=== PATIENT | female | born 1945 | race Caucasian/White ===

== ENCOUNTER 2020-07-23 13:28 | Emergency (ER) | payer MEDICARE, BC ==
[2020-07-23] MEDS: Sodium Chloride 0.9% 10 ML Syringe FLUSH PRN ×2 (13:43→16:14)
[2020-07-23] MEDS ORDERED: Morphine 2 MG/ML SYRINGE IVPUSH ONE (14:13)
--- NOTE | 2020-07-23 14:28 | EDM.PDOC ---
ED HPI GENERAL MEDICAL PROBLEM - General Chief Complaint: Lower Extremity Injury/Pain Stated Complaint: R HIP PAIN Time Seen by Provider: 07/23/20 13:45 Source of Information: Reports: Patient History Limitations: Reports: No Limitations - History of Present Illness INITIAL COMMENTS - FREE TEXT/NARRATIVE: Patient ia a 74 YO WF who presented to the ED because of Right hip pain. She missed a step then fell on the ice. She was not able to get up and c/o Right hip pain which is worse with movements. She is otherwise healthy and is not taking any medications except for a daily MVI. R hip Pain Score (Numeric/FACES): 10 - Related Data Allergies Allergy/AdvReac Type Severity Reaction Status Date / Time No Known Allergies Allergy Verified 07/23/20 13:46 Home Meds: Home Meds Multivitamin with Minerals [Multiple Vitamin] 1 tab PO DAILY 04/10/18 [History] Past Medical History - Past Health History Medical/Surgical History: Denies Medical/Surgical History HEENT History: Reports: Cataract Cardiovascular History: Reports: None Respiratory History: Reports: None Gastrointestinal History: Reports: PUD Other Gastrointestinal History: constipation Genitourinary History: Reports: None 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 History: Musculoskeletal History: Reports: Arthritis Neurological History: Reports: None Psychiatric History: Reports: Anxiety Endocrine/Metabolic History: Reports: None Hematologic History: Reports: None Immunologic History: Reports: None Oncologic (Cancer) History: Reports: None Dermatologic History: Reports: None - Infectious Disease History Infectious Disease History: Reports: Chicken Pox, Measles - Past Surgical History Head Surgeries/Procedures: Reports: None HEENT Surgical History: Reports: Cataract Surgery Other HEENT Surgeries/Procedures: right eye GI Surgical History: Reports: Colonoscopy Female Surgical History: Reports: None Neurological Surgical History: Reports: None Musculoskeletal Surgical History: Reports: Carpal Tunnel Other Musculoskeletal Surgeries/Procedures:: BILATERAL CARPAL TUNNEL RELEASE Social & Family History - Family History Family Medical History: No Pertinent Family History GI: Reports: None - Tobacco Use Tobacco Use Status *Q: Never Tobacco User - Caffeine Use Caffeine Use: Reports: Coffee Other Caffeine Use: 2 cups a day Caffeine Use Comment: 2-3 cup a day - Recreational Drug Use Recreational Drug Use: No Review of Systems - Review of Systems Review Of Systems: See Below Constitutional: Reports: No Symptoms Eyes: Reports: No Symptoms Ears: Reports: No Symptoms Nose: Reports: No Symptoms Mouth/Throat: Reports: No Symptoms Respiratory: Reports: No Symptoms Cardiovascular: Reports: No Symptoms GI/Abdominal: Reports: No Symptoms Genitourinary: Reports: No Symptoms Musculoskeletal: Reports: Other (rt hip pain) Neurological: Reports: No Symptoms Psychiatric: Reports: No Symptoms ED EXAM, GENERAL - Physical Exam Exam: See Below Exam Limited By: No Limitations General Appearance: Alert, No Apparent Distress Eye Exam: Bilateral Eye: PERRL Ears: Normal External Exam, Normal Canal Nose: Normal Inspection, Normal Mucosa, No Blood Throat/Mouth: Normal Inspection, Normal Lips Head: Atraumatic, Normocephalic Neck: Normal Inspection, Supple, Non-Tender, Full Range of Motion Respiratory/Chest: No Respiratory Distress, Lungs Clear, Normal Breath Sounds Cardiovascular: Normal Peripheral Pulses, Regular Rate, Rhythm, No Edema, No Gallop GI/Abdominal: Normal Bowel Sounds, Soft, Non-Tender, No Organomegaly Back Exam: Normal Inspection, Full Range of Motion Extremities: Other (tenderness rt hip) Course - Vital Signs Text/Narrative:: Labs/Xray hip-pelvis was discussed with patient Morphine 2 mg IV x1 Last Recorded V/S: Last Vital Signs Temp 36.2 C 07/23/20 13:28 Pulse 90 07/23/20 13:28 Resp 20 07/23/20 13:28 BP 132/89 07/23/20 13:28 Pulse Ox 100 07/23/20 13:28 - Orders/Labs/Meds Orders: Active Orders 24 hr Category Date Time Status Hip Min 2V or 3V w Pelvis Rt [CR] Stat Exams 07/23/20 14:17 Taken INR,PT,PROTHROMBIN TIME [COAG] Stat Lab 07/23/20 13:45 Received PTT,PARTIAL THROMBOPLSTIN TIME [COAG] Stat Lab 07/23/20 13:45 Received Sodium Chloride 0.9% [Saline Flush] Med 07/23/20 13:54 Active 10 ml FLUSH ASDIRECTED PRN Saline Lock Insert [OM.PC] Routine Oth 07/23/20 13:54 Ordered Medication Orders Sodium Chloride (Saline Flush) 10 ml FLUSH ASDIRECTED PRN PRN Reason: Keep Vein Open Last Admin: 07/23/20 13:43 Dose: 10 ml Documented by: MAURICE Labs: Laboratory Tests 07/23/20 07/23/20 Range/Units 13:45 13:45 WBC 10.1 (3.0-10.3) x10-3/uL RBC 4.19 (3.60-5.20) x10(6)uL Hgb 13.5 (11.4-15.5) g/dL Hct 40.0 (34.2-48.2) % MCV 95.5 (76.7-100.5) fL MCH 32.3 (23.9-33.9) pg MCHC 33.8 (31.9-34.8) g/dL RDW 14.4 (12.3-16.5) % Plt Count 301 (151-488) x10(3)uL MPV 8.4 (7.1-12.4) fL Neut % (Auto) 83.4 H (30.8-76.2) % Lymph % (Auto) 9.5 L (18.4-52.1) % [place] % (Auto) 4.5 (4.4-15.7) % Eos % (Auto) 1.8 (0.6-8.1) % Baso % (Auto) 0.8 (0.2-1.5) % Neut # (Auto) 8.4 H (1.5-6.3) x10-3/uL Lymph # (Auto) 1.0 (1.0-4.4) x10-3/uL [place] # (Auto) 0.4 (0.3-1.0) x10-3/uL Eos # (Auto) 0.2 (0.0-0.8) x10-3/uL Baso # (Auto) 0.1 (0.0-0.1) x10-3/uL Sodium 136 (135-145) mmol/L Potassium 3.9 (3.5-5.3) mmol/L Chloride 102 (100-110) mmol/L Carbon Dioxide 24 (21-32) mmol/L BUN 15 (7-18) mg/dL Creatinine 0.9 (0.55-1.02) mg/dL Est Cr Clr Drug Dosing 56.16 mL/min Estimated GFR (MDRD) > 60 (>60) BUN/Creatinine Ratio 16.7 (9-20) Glucose 158 H (80-116) mg/dL Calcium 9.4 (8.6-10.2) mg/dL Total Bilirubin 0.4 (0.1-1.3) mg/dL AST 36 H (5-25) IU/L ALT 40 H (12-36) U/L Alkaline Phosphatase 85 (56-112) IU/L Total Protein 7.7 (6.0-8.0) g/dL Albumin 4.0 (3.2-4.6) g/dL Globulin 3.7 g/dL Albumin/Globulin Ratio 1.1 Meds: Medications Generic Name Dose Route Start Last Admin Trade Name Freq PRN Reason Stop Dose Admin Sodium Chloride 10 ml 07/23/20 13:54 07/23/20 13:43 Saline Flush FLUSH 10 ml ASDIRECTED PRN Administration Keep Vein Open Discontinued Medications Generic Name Dose Route Start Last Admin Trade Name Freq PRN Reason Stop Dose Admin Morphine Sulfate 2 mg 07/23/20 14:13 07/23/20 14:23 Morphine IVPUSH 07/23/20 14:14 2 mg ONETIME ONE Administration Departure - Departure Time of Disposition: 15:55 Disposition: DC/Tfer to Acute Hospital 02 Condition: Good Clinical Impression: Femoral neck fracture, Fall - Discharge Information Referrals: Norma Padilla PA-C [Primary Care Provider] - Forms: ED Department Discharge Sepsis Event Note (ED) - Evaluation Sepsis Screening Result: No Definite Risk - Focused Exam Vital Signs: Vital Signs Temp Pulse Resp BP Pulse Ox 07/23/20 13:28 36.2 C 90 20 132/89 100 - My Orders Last 24 Hours: My Active Orders 07/23/20 13:45 INR,PT,PROTHROMBIN TIME [COAG] Stat PTT,PARTIAL THROMBOPLSTIN TIME [COAG] Stat 07/23/20 13:54 Sodium Chloride 0.9% [Saline Flush] 10 ml FLUSH ASDIRECTED PRN Saline Lock Insert [OM.PC] Routine 07/23/20 14:17 Hip Min 2V or 3V w Pelvis Rt [CR] Stat - Assessment/Plan Last 24 Hours: My Active Orders 07/23/20 13:45 INR,PT,PROTHROMBIN TIME [COAG] Stat PTT,PARTIAL THROMBOPLSTIN TIME [COAG] Stat 07/23/20 13:54 Sodium Chloride 0.9% [Saline Flush] 10 ml FLUSH ASDIRECTED PRN Saline Lock Insert [OM.PC] Routine 07/23/20 14:17 Hip Min 2V or 3V w Pelvis Rt [CR] Stat
[2020-07-23] MEDS ORDERED: Morphine 2 MG/ML SYRINGE IVPUSH STA (15:52)
--- NOTE | 2020-07-23 17:41 | CR ---
INDICATION: Right hip pain after a fall. RIGHT HIP WITH PELVIS: Frontal view of the pelvis with frontal view of the right hip and a lateral view of the right hip were obtained 07/23/20 - no comparisons. A partially subcapital oblique fracture through the femoral neck is noted with a portion of the femoral neck still attached to the femoral head. Cranial offset of the distal fracture fragment is noted of approximately 2 cm with overriding of approximately 18 mm. No other acute bone or joint abnormality was identified. Minimal degenerative changes are noted at the hip joints and very minimally at the sacroiliac joints with the joint spaces appearing to be fairly well maintained on this supine examination. IMPRESSION: Femoral neck fracture with deformity on the right. MTDD
== END 2020-07-23 16:25 ==
LOC: FB.ED 13:28
DX: S72.011A Unspecified intracapsular fracture of right femur, initial encounter for closed fracture (principal); W00.0XXA Fall on same level due to ice and snow, initial encounter
CPT/HCPCS: 36415; 51702; 73502-RT; 80053; 81001; 85025; 85610; 85730; 96374; 96376; 99285; 99285-25; J2270

== ENCOUNTER 2020-07-28 11:28 | Inpatient (IN) | payer MEDICARE, BC ==
--- NOTE | 2020-07-28 16:03 | PCM.HP.2 ---
H&P History of Present Illness - General Date of Service: 07/28/20 Admit Problem/Dx: Admission Diagnosis/Problem Admission Diagnosis/Problem Rehabilitation therapy Source of Information: Patient, Old Records, Provider - History of Present Illness Initial Comments - Free Text/Narative: Norma presents for admission to swing bed after right total hip arthroplasty on 07/24 after sustaining right femoral neck fracture on 07/23 from fall on ice at home. She was coming down the steps and stepped on some ice/snow went down and could not get up. She has had stable Hgb in [place] at 8.5 for past few days. Amairani tushar unremarkable. She is to have Lovenox for 28 days for DVT prophylaxis, last dose on 08/21. She has appt with [facility] on 08/13 at 1030am, [facility] on 09/08 at 10 am with midlevel provider & [address] Villarreal. Total hip precautions, no bending >90 degrees, do not cross her legs. Covid negative today. Had bowel movement today, large one per patient. - Related Data Allergies/Adverse Reactions: Allergies Allergy/AdvReac Type Severity Reaction Status Date / Time No Known Allergies Allergy Verified 07/23/20 13:46 Home Medications: Home Meds Acetaminophen [Tylenol] 650 mg PO Q4H PRN 07/28/20 [History] Calcium Carb, Citrate/Vit D3 [Citracal + D ER] 1 tab PO BIDMEALS 07/28/20 [History] Cholecalciferol (Vitamin D3) [Vitamin D3] 25 mcg PO DAILY 07/28/20 [History] Docusate Sodium [Docusol] 1 enema RECTAL DAILY PRN 07/28/20 [History] Docusate Sodium/Sennosides [Senna Plus] 2 tab PO BID 07/28/20 [History] Docusate Sodium/Sennosides [Senna Plus] 2 tab PO BID PRN 07/28/20 [History] Enoxaparin [Lovenox] 40 mg SUBCUT DAILY@1200 07/28/20 [History] Magnesium Hydroxide [Milk of Magnesia] 30 ml PO BID PRN 07/28/20 [History] Multivitamin 1 tab PO DAILY 07/28/20 [History] Ondansetron [Zofran ODT] 4 mg PO QID PRN 07/28/20 [History] bisacodyL [Bisacodyl] 5 mg PO BID PRN 07/28/20 [History] bisacodyL [Bisacodyl] 10 mg RECTAL DAILY PRN 07/28/20 [History] polyethylene glycoL 3350 [MiraLAX] 17 gm PO BID 07/28/20 [History] Past Medical History - Past Health History Medical/Surgical History: Denies Medical/Surgical History HEENT History: Reports: Cataract Cardiovascular History: Reports: None Respiratory History: Reports: None Gastrointestinal History: Reports: PUD Other Gastrointestinal History: constipation Genitourinary History: Reports: None 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: Musculoskeletal History: Reports: Arthritis Neurological History: Reports: None Psychiatric History: Reports: Anxiety Endocrine/Metabolic History: Reports: None Hematologic History: Reports: None Immunologic History: Reports: None Oncologic (Cancer) History: Reports: None Dermatologic History: Reports: None - Infectious Disease History Infectious Disease History: Reports: Chicken Pox, Measles - Past Surgical History Head Surgeries/Procedures: Reports: None HEENT Surgical History: Reports: Cataract Surgery Other HEENT Surgeries/Procedures: right eye GI Surgical History: Reports: Colonoscopy Female Surgical History: Reports: None Neurological Surgical History: Reports: None Musculoskeletal Surgical History: Reports: Carpal Tunnel Other Musculoskeletal Surgeries/Procedures:: BILATERAL CARPAL TUNNEL RELEASE Social & Family History - Family History Family Medical History: No Pertinent Family History GI: Reports: None - Caffeine Use Caffeine Use: Reports: Coffee Other Caffeine Use: 2 cups a day Caffeine Use Comment: 2-3 cup a day H&P Review of Systems - Review of Systems: Review Of Systems: See Below General: Reports: No Symptoms HEENT: Reports: No Symptoms Pulmonary: Reports: No Symptoms Cardiovascular: Reports: Edema. Denies: Chest Pain, Dyspnea on Exertion Gastrointestinal: Reports: No Symptoms Genitourinary: Reports: No Symptoms Musculoskeletal: Reports: Leg Pain, Joint Pain Skin: Reports: Wound Psychiatric: Reports: No Symptoms Neurological: Reports: No Symptoms Hematologic/Lymphatic: Reports: No Symptoms Immunologic: Reports: No Symptoms Exam - Exam Exam: See Below - Exam General: Alert, Oriented, Cooperative HEENT: PERRLA, Conjunctiva Clear, EACs Clear, EOMI, Hearing Intact, Mucosa Moist & [place] Neck: Supple, Trachea Midline. No: Lymphadenopathy Lungs: Clear to Auscultation, Normal Respiratory Effort Cardiovascular: Regular Rate, Regular Rhythm GI/Abdominal Exam: Normal Bowel Sounds, Soft, Non-Tender, No Distention (Female) Exam: Deferred Rectal (Female) Exam: Deferred Extremities: Pedal Edema (RLE 1+, LLE trace), Limited Range of Motion Peripheral Pulses: 2+: Radial (L), Radial (R) Skin: Incision (occlusive dressing in place), Other (betadine present on right foot) Neurological: Cranial Nerves Intact, Normal Speech, Normal Tone Psychiatric: Normal Affect, Normal Mood - Patient Data Lab Results Last 24 hrs: Hgb 8.5, Platelets 269 *Q Meaningful Use (ADM) - VTE Risk Assess *Q Each Risk Factor Represents 1 Point: None Total Score 1 Point Risk Factors: 0 Each Risk Factor Represents 2 Points: Age 60 - 74 Years Total Score 2 Point Risk Factors: 2 Each Risk Factor Represents 3 Points: None Total Score 3 Point Risk Factors: 0 Each Risk Factor Represents 5 Points: Hip, Pelvis or Leg Fracture, Less than 1 month Total Score 5 Point Risk Factors: 5 Venous Thromboembolism Risk Factor Score *Q: 7 - Problem List (1) Status post total hip replacement, right SNOMED Code(s): 145498650880, 246035260124 ICD Code: Z96.641 - PRESENCE OF RIGHT ARTIFICIAL HIP JOINT Status: Acute Current Visit: Yes (2) Femoral neck fracture SNOMED Code(s): 4175509 ICD Code: S72.009A - FRACTURE OF UNSP PART OF NECK OF UNSP FEMUR, INIT Status: Acute Current Visit: No Problem List Initiated/Reviewed/Updated: Yes Orders Last 24hrs: Active Orders 24 hr Category Date Time Status Patient Status [ADT] Routine ADT 07/28/20 15:47 Ordered Elevate Extremity [RC] PRN Care 07/28/20 15:47 Ordered Height and Weight [RC] WEEKLY Care 07/28/20 15:47 Ordered Oxygen Therapy [RC] PRN Care 07/28/20 15:47 Ordered Up With Assistance [RC] ASDIRECTED Care 07/28/20 15:47 Ordered Up to Chair [RC] ASDIRECTED Care 07/28/20 15:47 Ordered VTE/DVT Education [RC] Per Unit Routine Care 07/28/20 15:47 Ordered Vital Signs [RC] PER UNIT ROUTINE Care 07/28/20 15:47 Ordered Wound Care [RC] PRN Care 07/28/20 15:47 Ordered OT Evaluation and Treatment [CONS] Routine Cons 07/28/20 15:47 Ordered PT Evaluation and Treatment [CONS] Routine Cons 07/28/20 15:47 Ordered Regular Diet [DIET] Diet 07/28/20 Dinner Ordered Antiembolic Hose [OM.PC] Per Unit Routine Oth 07/28/20 15:49 Ordered Ice Therapy [OM.PC] Routine Oth 07/28/20 15:47 Ordered Resuscitation Status Routine Resus Stat 07/28/20 15:47 Ordered Assessment/Plan Comment:: 1. Admit for swing bed services: PT/OT s/p right total hip replacement after right femoral neck fracture on 07/23. 2. Right total hip replacement, POD#4: PT/OT evaluate & treat, Tylenol as needed for pain. MiraLax Daily and Senna bid as needed. Weight bearing as tolerated. Hip precautions. Occlusive dressing was changed 07/27 then every 7 days and as needed. Follow up appointments 08/13 & 09/08 in [place]. Elevate extremity bid & as needed. Ice as needed swelling. Cover dressing for showers. 3. Regular diet. 4. Activity: up with assistance & chair. advance per PT. 5. DVT prophylaxis: Lovenox 40 mg sq daily x 28 days, last day 08/21. 6. CODE STATUS: FULL. - Mortality Measure Prognosis:: Good
[2020-07-28] MEDS ORDERED: Acetaminophen 325 MG Tab PO PRN (16:04)
[2020-07-28] MEDS ORDERED: Ondansetron 4 MG Tab.DIS PO PRN (16:07)
[2020-07-28] MEDS: Calcium Carbonate 500 MG Tablet PO SCH (18:09)
[2020-07-29] MEDS: Multivitamin Tab PO SCH (08:18)
[2020-07-29] MEDS: Cholecalciferol (Vitamin D3) 25 MCG Tab PO SCH (08:18)
[2020-07-29] MEDS: Polyethylene Glycol 3350 Powder 17 GM Packet PO SCH (08:18)
[2020-07-29] MEDS: Calcium Carbonate 500 MG Tablet PO SCH ×2 (08:18→17:01)
--- OUTSIDE RECORDS SUMMARY | 2020-07-29 08:32 | XMSREPORT ---
:1945 Author Organization [facility] s Address [address] [place] [address] [address] [place] [address] Care Team Providers Name Role Phone Nanette Velasquez MD Primary Care Provider Delia Padilla Attributed Provider Reason for Visit Reason Comments Auth/Cert Status Reason Specialty Diagnoses / Procedures Referred By C hernanact Referred To Contact Encounter Details Date Type Department Care Team Description [facility] Pr ocedure Closed displaced 07/28/2020 Encounter [facility] Dianna Clay MD [address] [place] [address] [phone] fracture of right SURG [facility] Debbie Bar, [address] [place] [address] [phone] femoral neck (HCC) [address] [facility] Jorge Alberto Torres MD [address] [place] [address] [phone] [place] [address] Ricardo Light DO [facility] [place] [address] [phone] Allergies No Known Allergiesdocumented as of this encounter (statuses as of 07/28/2020) Medications Medication Sig Dispensed Refills Start End Status Date Date Multiple Vitamin Take 1 tablet by 0 Active (MULTIVITAMIN) mouth 1 time per TABS day. vitamin D3, Take 1 tablet 30 tablet 0 07/24/19 Acti ve cholecalciferol, (1,000 Units) by 21 25 mcg (1000 mouth 1 time per unit) day tabletIndications : Closed displaced fracture of right femoral neck (HCC), Status post total replacement of right hip, Pathological fracture of other site due to osteoporosis, unspecified osteoporosis type, initial encounter calcium Take 1 tablet by 0 07/24/19 Act khadijah citrate-vitamin D mouth 2 times a 21 (CITRACAL + VIT day with meals D) 315 mg-250 unit tabletIndications : Closed displaced fracture of right femoral neck (HCC), Status post total replacement of right hip, Pathological fracture of other site due to osteoporosis, unspecified osteoporosis type, initial encounter enoxaparin Inject 40 mg 0 07/28/19 Active (LOVENOX) 40 mg subcutaneously 1 21 syringe (100 time per day mg/mL) subcutaneous injection solutionIndicatio ns: Closed displaced fracture of right femoral neck (HCC) ondansetron Take 1 tablet (4 0 07/28/19 A ctive (ZOFRAN ODT) 4 mg mg) by mouth 4 21 dispersible times a day as tabletIndications needed for nausea : Nausea or vomiting bisacodyl Take 1 tablet (5 30 tablet 0 07/28/19 Act khadijah (DULCOLAX) 5 mg mg) by mouth 2 21 tabletIndications times a day as : Constipation, needed for unspecified constipation constipation type magnesium Take 30 mL by 0 07/28/19 Active hydroxide (MILK mouth 2 times a 21 OF MAGNESIA) 400 day as needed for mg/5 mL oral constipation suspensionIndicat ions: Constipation, unspecified constipation type polyethylene Take 1 packet by 0 07/28/19 Active glycol (MIRALAX) mouth 2 times a 21 17 g day Dissolve in 4 packetIndications to 8 ounces of : Constipation, water, juice, unspecified soda, coffee, constipation type tea. senna-docusate Take 2 tablets by 0 07/28/19 Active sodium mouth 2 times a 21 (SENOKOT-S;CAMDEN day as needed for LACE) 8.6-50 MG constipation tabletIndications : Constipation, unspecified constipation type bisacodyl Insert 1 30 suppository 0 07/28/19 Activ e (DULCOLAX) 10 mg suppository (10 suppositoryIndica mg) rectally 1 tions: time a day as Constipation, needed for unspecified constipation constipation type Unwrap before inserting. Do not swallow. docusate sodium Insert 1 enema 0 07/28/19 Active (THEREVAC-SB rectally 1 time a 21 MINI;ENEMEEZ day as needed for MINI) 283 MG constipation ENEMIndications: Constipation, unspecified constipation type senna-docusate Take 2 tablets by 0 07/28/19 Active sodium mouth 2 times a 21 (SENOKOT-S;CAMDEN day LACE) 8.6-50 MG tabletIndications : Constipation, unspecified constipation type acetaminophen Take 2 tablets 0 07/28/19 A ctive (TYLENOL) 325 mg (650 mg) by mouth 21 tabletIndications Every 4 hours as : Closed needed for displaced moderate pain or fracture of right fever > (indicate femoral neck temp) (temp > (HCC) 100.4) glucosamine Take 1 tablet by 0 D iscontinued sulfate 1000 MG mouth 2 times a (Stop Taking TABS day. at Dischar ) acetaminophen Take 2 tablets 0 07/28/19 D iscontinued (TYLENOL) 325 mg (650 mg) by mouth 021 tabletIndications every 4 to 6 : Closed hours as needed displaced for moderate pain fracture of right or fever > femoral neck (indicate temp) (HCC) (temp > 100.4) ondansetron Administer 2 mL 0 07/28/19 Di scontinued (ZOFRAN) 4 mg/2 (4 mg) (Sto p Taking mL injection intravenously 4 a t Discharge) solutionIndicatio times a day as ns: Nausea needed for nausea or vomiting ondansetron Administer 2 mL 0 07/28/19 Di scontinued (ZOFRAN) 4 mg/2 (4 mg) (Sto p Taking mL injection intravenously at Discharge) solutionIndicatio Every 4 hours as ns: Nausea needed for nausea or vomiting sodium chloride Administer 10 mL 0 07/28/19 Discontinued 0.9% intravenously 2 (Sto p Taking SOLNIndications: times a day and at Discharge) Closed displaced as needed fracture of right femoral neck (HCC) sodium chloride Administer 10 mL 0 07/28/19 Discontinued 0.9% intravenously 2 (Sto p Taking SOLNIndications: times a day and at Discharge) Closed displaced as needed fracture of right femoral neck (HCC) metoclopramide Administer 1 mL 0 07/28/19 Discontinued (REGLAN) 5 MG/ML (5 mg) (St op Taking SOLN inj intravenously at Dis charge) solnIndications: every 6 hours as Nausea needed for nausea or vomiting documented as of this encounter (statuses as of 07/28/2020) Active Problems Problem Noted Date Femoral neck fracture 07/24/2020 Closed displaced fracture of right femoral neck 2020 Vaginal leukorrhea 06/27/2011 Routine general medical examination at [facility] 11/19/2007 Symptomatic menopausal or female climacteric states documented as of this encounter (statuses as of 07/28/2020) Immunizations Name Administration Dates Next Due FLU VACCINE HIGH DOSE 65YR+(Fluzone) 03/02/2018, 03/02/2017, 03/18/2016, 03/06/2015, 03/08/2013 Pneumococcal Conj PCV13 10/29/2015 Pneumococcal Polysaccharide PPSV23 03/02/2017 TD,not adsorbed 11/04/2002 TDAP 04/05/2017 Zoster Live(Zostavax) 09/01/2009 documented as of this encounter Social History Tobacco Use Types Packs/Day Years Used Date Never Smoker Smokeless Tobacco: Never Used Alcohol Use Drinks/Week oz/Week Comments No 0.0 Sex Assigned at Date Recorded Not on file documented as of this encounter Last Filed Vital Signs Vital Sign Reading Time Taken Comments Blood Pressure 126/80 07/28/2020 12:34 PM [employer] Pulse 113 07/28/2020 12:34 PM [employer] Temperature 36.3 C (97.4 F) 07/28/2020 12:34 PM [employer] Respiratory Rate 16 07/28/2020 12:34 PM [employer] Oxygen Saturation 97% 07/28/2020 12:34 PM [employer] Inhaled Oxygen Concentration - - Weight 71.8 kg (158 lb 4.6 oz) 07/23/2020 5:00 PM [employer] Height 175.3 cm (5' 9") 07/23/2020 5:00 PM [employer] Body Mass Index 23.38 07/23/2020 5:00 PM [employer] documented in this encounter Functional Status Functional Status Response Date of Assessment Do you have difficulty with walking, balance, climbing No 05/16/2017 stairs, or had a fall in the last 3 months? documented as of this encounter Discharge Summaries Not on filedocumented in this encounter Medications at Time of Discharge Medication Sig Dispensed Refills Start Date End Date enoxaparin (LOVENOX) Inject 40 mg 0 07/28/2020 40 mg syringe (100 subcutaneously 1 time mg/mL) subcutaneous per day injection solutionIndications: Closed displaced fracture of right femoral neck (HCC) ondansetron (ZOFRAN Take 1 tablet (4 mg) 0 2020 ODT) 4 mg dispersible by mouth 4 times a tabletIndications: day as needed for Nausea nausea or vomiting bisacodyl (DULCOLAX) Take 1 tablet (5 mg) 30 tablet 0 07/28 5 mg by mouth 2 times a tabletIndications: day as needed for Constipation, constipation unspecified constipation type magnesium hydroxide Take 30 mL by mouth 2 0 07/28 (MILK OF MAGNESIA) times a day as needed 400 mg/5 mL oral for constipation suspensionIndications : Constipation, unspecified constipation type polyethylene glycol Take 1 packet by 0 07/28/2020 (MIRALAX) 17 g mouth 2 times a day packetIndications: Dissolve in 4 to 8 Constipation, ounces of water, unspecified juice, soda, coffee, constipation type tea. senna-docusate sodium Take 2 tablets by 0 021 (SENOKOT-S;PERICOLACE mouth 2 times a day ) 8.6-50 MG as needed for tabletIndications: constipation Constipation, unspecified constipation type bisacodyl (DULCOLAX) Insert 1 suppository 30 suppository 0 0 07/28/2020 10 mg (10 mg) rectally 1 suppositoryIndication time a day as needed s: Constipation, for constipation unspecified Unwrap before constipation type inserting. Do not swallow. docusate sodium Insert 1 enema 0 07/28/2020 (THEREVAC-SB rectally 1 time a day MINI;ENEMEEZ MINI) as needed for 283 MG constipation ENEMIndications: Constipation, unspecified constipation type senna-docusate sodium Take 2 tablets by 0 021 (SENOKOT-S;PERICOLACE mouth 2 times a day ) 8.6-50 MG tabletIndications: Constipation, unspecified constipation type acetaminophen Take 2 tablets (650 0 07/28/2020 (TYLENOL) 325 mg mg) by mouth Every 4 tabletIndications: hours as needed for Closed displaced moderate pain or fracture of right fever > (indicate femoral neck (HCC) temp) (temp > 100.4) Multiple Vitamin Take 1 tablet by 0 (MULTIVITAMIN) TABS mouth 1 time per day. vitamin D3, Take 1 tablet (1,000 30 tablet 0 07/24/2020 cholecalciferol, 25 Units) by mouth 1 mcg (1000 unit) time per day tabletIndications: Closed displaced fracture of right femoral neck (HCC), Status post total replacement of right hip, Pathological fracture of other site due to osteoporosis, unspecified osteoporosis type, initial encounter calcium Take 1 tablet by 0 07/24/2020 citrate-vitamin D mouth 2 times a day (CITRACAL + VIT D) with meals 315 mg-250 unit tabletIndications: Closed displaced fracture of right femoral neck (HCC), Status post total replacement of right hip, Pathological fracture of other site due to osteoporosis, unspecified osteoporosis type, initial encounter documented as of this encounter Progress Notes Nery Méndez, ORIENTAL RUG REPAIRER-SHOE LAY OUT PLANNER - 07/28/2020 7:45 AM CST ORTHOPEDIC POST OPERATIVE PROGRESS NOTE July 28, 2020 4 Days Post-Op Status Post: Procedure(s): RIGHT TOTAL HIP ARTHROPLASTY Patient of Dr. Villarreal S: Norma Modi is a 74yr female recovering from surgery, denies CP, SOB, N/V, Fever or Chills, numbness/tingling. Reports a good appetite. PT/OT: Progressing towards goals, ambulating in hallway multiple times throughout day Pain: 1/10 pain while at rest, increased with activity but tolerable per patient report Has had BM noted since surgery. Is passing flatus. Urinating without difficulty. O: Temp Readings from Last 1 Encounters: 07/28/20 98.4 F (36.9 C) BP Readings from Last 1 Encounters: 07/28/20 101/62 Pulse Readings from Last 1 Encounters: 07/28/20 83 Gen: Sitting up in chair, alert and orientated, no apparent distress Incision: mild serous drainage. right HIP: Warm, well perfused. Brisk capillary refill noted. Sensation intact to light touch distally. Homans negative, no calf pain bilaterally. Compartments soft and compressible. DP and PT pulses are palpable. Motor grossly intact, able to PF/DF ankle and wiggle toes. Mild tenderness to palpation over incisional site. Lab Results Component Value Date WBC 7.2 07/28/2020 NUCRBC 0 07/28/2020 RBC 2.69 (L) 07/28/2020 HEMOGLOBIN 8.5 (L) 07/28/2020 HEMATOCRIT 25.6 (L) 07/28/2020 MCV 95.2 07/28/2020 MCH 31.6 07/28/2020 MCHC 33.2 07/28/2020 PLTCOUNT 269 07/28/2020 NEUTROPCT 60.0 07/28/2020 LYMPHSPCT 21.1 07/28/2020 MONOSPCT 8.9 07/28/2020 EOSPCT 8.2 07/28/2020 BASOPHILPCT 0.7 07/28/2020 Lab Results Component Value Date INR 1.1 (L) 07/23/2020 A/P: 1. s/p RIGHT TOTAL HIP ARTHROPLASTY: DVT prophylaxis: Lovenox x28 days total post-operatively Pain control: continue current regimen Wound care: Dressing change done yesterday; Change every 7 days or sooner if needed; Change prior to discharge PT/OT: continue; Activity: as tolerated; WBAT to RLE w/ standard hip precautions Disposition/planning: continue cares; Per Orthopedics, clear for discharge to appropriate setting when available and medically stable. Follow up: 2 weeks with JARAD and [address] Villarreal and [facility] 2. Acute Blood loss Anemia: Expected, hemoglobin 8.5 this AM Nery Méndez APRN, PENOLOGY TEACHER-C Orthopedic Surgery NET MVC DEVELOPER Jorge Alberto Torres MD - 07/27/2020 7:53 PM CST Patient Name: Norma Modi Admit Date: 07/23/2020 Days: 3 CSN: [id number] PCP: Deandre Velasquez MD Assessment and Plan Norma Modi is a 74yr old female admitted on 07/23/2020 5:30 PM. 74-year-old female with no significant past medical history who presents as a direct admission from [place] [facility] for acute right hip pain and setting up displaced femoral neck fracture. She had a mechanical fall onto the ice and landed directly on her right hip. She is now status post # Closed displaced fracture right femoral neck # Now S/p right total hip arthroplasty # Acute blood loss anemia post surgery (hemoglobin table at 8.5 today) # Hypoalbuminemia, albumin 2.5 - Appreciate orthopedic surgery intervention - Oral pain regimen - Patient is under size of in regards to returning home with home health and spouse assist versus benefiting from short-term custodial facility. - PT reports that the patient requires assistance with sit to stand more than previous sessions and that the patient is less sure she will be able to manage at home. She may benefit from short-term custodial facility. - OT recommends low intensity versus home with spouse assist in home health OT - Will continue to monitor overnight and work with therapies in the morning for further evaluation and recommendations for discharge planning. - WBAT to RLE Plan of care was discussed with patient and her . Patient verbalized understanding of the plan. All questions answered. CODE STATUS: Full Code Diet: Regular diet DVT Prophylaxis: Lovenox 40 mg subcu daily for 28 doses through 08/21/20 for post-op DVT Ppx. Disposition: Pending further therapy evaluations. Patient to have two-week follow-up with a PPD in 6 week follow-up with Dr. Villarreal. Continue to change dressing every 7 days or sooner if needed due to drainage. Interval History and clinical decision making Norma continues to work hard with therapies. She is unsure of returning home [facility]. Case management has profiled in [facility] to [facility] in [place]. More to come after working with therapies in the AM. Review of Systems Constitutional: Denies fevers/chills. Positive for activity change. HEENT: Denies complaints Cardio: Denies chest pain, palpitations, dizziness/lightheadedness Pulm: Denies SOB, cough, or inspiratory pain. GI: Denies diarrhea/constipation : Denies complaints Extremities: Positive for gait problem Neurological: Negative for dizziness and weakness Physical Exam Blood pressure 121/83, pulse 87, temperature 98.5 F (36.9 C), resp. rate 18, height 1.753 m (5' 9"), weight 71.8 kg (158 lb 4.6 oz), SpO2 97 %, not currently . General: No acute distress, appearing comfortable Head: Normocephalic/Atraumatic Eyes: PERRLA, no scleral icterus Nose: Nasal mucosa normal, no drainage Throat: Supple, trachea midline Respiratory: Clear to auscultation all lobes. No rhonchi, rales, or rubs noted Cardiovascular: RRR, Normal S1 & S2, No murmur. Abdomen: BS present, soft, no organomegaly Musculoskeletal: No cyanosis. Generalized swelling of right hip. Neuro: awake, moving extremities grossly, speech normal. Skin: No rash, Surgical incision CDI Labs were reviewed. Pertinent positives and negatives are reflected in the assessment and plan Jorge Alberto Torres MD Hospitalist Department of Internal Medicine Pager #[phone] [place], [place] enedNery braxton, ORIENTAL RUG REPAIRER-SHOE LAY OUT PLANNER - 07/27/2020 10:16 AM CST ORTHOPEDIC POST OPERATIVE PROGRESS NOTE July 27, 2020 3 Days Post-Op Status Post: Procedure(s): RIGHT TOTAL HIP ARTHROPLASTY Patient of Dr. Villarreal S: Norma Modi is a 74yr female recovering from surgery, denies CP, SOB, N/V, Fever or Chills, numbness/tingling. Reports a good appetite. PT/OT: Ambulated 300 feet with FWW and CGA today Pain: Currently rating pain to hip at 1/10 Has had BM noted since surgery. Is passing flatus. Urinating without difficulty. O: Temp Readings from Last 1 Encounters: 07/27/20 99.2 F (37.3 C) BP Readings from Last 1 Encounters: 07/27/20 101/65 Pulse Readings from Last 1 Encounters: 07/27/20 94 Gen: Sitting up in bed, alert and orientated, no apparent distress Incision: no drainage. Dressing clean, dry, and intact. Dressing removed. Incision clean, dry, and well approximated. No purulent drainage, erythema, fluctuance, or induration noted. Redressed with mepilex dressing. right HIP: Warm, well perfused. Brisk capillary refill noted. Sensation intact to light touch distally. Homans negative, no calf pain bilaterally. Compartments soft and compressible. DP and PT pulses are palpable. Motor grossly intact, able to PF/DF ankle and wiggle toes. No tenderness to palpation Lab Results Component Value Date WBC 7.6 07/27/2020 NUCRBC 0 07/27/2020 RBC 2.64 (L) 07/27/2020 HEMOGLOBIN 8.5 (L) 07/27/2020 HEMATOCRIT 25.1 (L) 07/27/2020 MCV 95.1 07/27/2020 MCH 32.2 07/27/2020 MCHC 33.9 07/27/2020 PLTCOUNT 220 07/27/2020 NEUTROPCT 65.3 07/27/2020 LYMPHSPCT 17.5 07/27/2020 MONOSPCT 8.3 07/27/2020 EOSPCT 7.7 07/27/2020 BASOPHILPCT 0.7 07/27/2020 Lab Results Component Value Date INR 1.1 (L) 07/23/2020 A/P: 1. s/p RIGHT TOTAL HIP ARTHROPLASTY: DVT prophylaxis: Lovenox x28 days total post-operatively Pain control: Continue current regimen Wound care: Dressing change done today; Continue to change every 7 days or sooner if needed due to drainage PT/OT: continue; Activity: as tolerated; WBAT to RLE with standard hip precautions Disposition/planning: continue cares; Per Orthopedics, clear for discharge to appropriate setting when available and medically stable. Follow up: 2 weeks with JARAD and [address] Villarreal 2. Acute Blood loss Anemia: Expected, hemoglobin 8.5 this AM Nery Méndez APRN, PENOLOGY TEACHER-C Orthopedic Surgery NET MVC DEVELOPER Juan Lopes PA - 07/26/2020 2:17 PM CST Orthopedic Daily Progress note: S: 2 Days Post-Op, Procedure(s): RIGHT TOTAL HIP ARTHROPLASTY O: A/O, Pain controlled, Dressing C/D/I, Denies CP, SOB, F/C, N/V Positive DF, PF and EHL function, Sensation: intact to light touch in foot Was able to ambulate to hallway today. Current Vital Signs Temp: 98 F (36.7 C) BP: 112/74 Pulse: 93 O2 Device: Room Air O2 Flow Rate (L/min): 3 l/min Resp: 18 Pain Ratin (out of 10) Weight: 71.8 kg (158 lb 4.6 oz) SpO2: 100 % Pain Ratin Pain Location: Thigh Specify: Right Pain character: Aches;Dull Intake/Output Summary (Last 24 hours) at 07/26/2020 1417 Last data filed at 07/26/2020 1200 Gross per 24 hour Intake 3198 ml Output Net 3198 ml Lab Results Component Value Date HEMOGLOBIN 8.5 (L) 07/26/2020 Lab Results Component Value Date NA 137 07/24/2020 Lab Results Component Value Date INR 1.1 (L) 07/23/2020 PT 13.7 07/23/2020 Lab Results Component Value Date BUN 20 07/24/2020 Lab Results Component Value Date CREATSERUM 0.79 07/24/2020 Assessment/Plan: 1. 2 Days Post-Op, Procedure(s):RIGHT TOTAL HIP ARTHROPLASTY (femoral neck fx) 2. Acute blood loss anemia: stable 3. PT/OT: Out of bed, weight bearing status: WBAT Right lower 4. DVT prophylaxis: lovenox 5. Disposition/Planning: , INT MED following. Pt would like to go home by Monday. Does not want SNF. ? Home Health services. ROXANA Aguirre, PA-C Debbie Arellano DO - 07/26/2020 10:50 AM CST DAILY PROGRESS NOTE Norma Modi is a 74yr old female admitted on 07/23/2020 5:30 PM. Impression / Plan Principal Problem: Closed displaced fracture of right femoral neck (HCC) Active Problems: Femoral neck fracture (HCC) Resolved Problems: * No resolved hospital problems. * Right displaced femoral neck fracture Right total hip arthroplasty Acute blood loss anemia post surgery Appreciate orthopedic surgery intervention Multimodal pain regimen Follow-up repeat lab work Patient reiterates her goal is to go home with home PT Hemoglobin down to 8.5 post surgery, follow-up repeat CBC in a.m., transfusion support to maintain hemoglobin greater than 7 or if patient becomes symptomatic CODE STATUS full code Disposition: Pending PT evaluation. Interval History HPI Patient seen and examined laying in bed. Patient has been impulsive. Worked with physical therapy they are recommending low intensity rehab versus home with home PT Review of Systems Review of Systems Constitutional: Positive for activity change. Negative for appetite change and fatigue. Respiratory: Negative for cough and shortness of breath. Cardiovascular: Negative for chest pain, palpitations and leg swelling. Gastrointestinal: Negative for abdominal distention and abdominal pain. Genitourinary: Negative for difficulty urinating. Musculoskeletal: Positive for gait problem. Neurological: Negative for dizziness and weakness. Physical Exam Vital Signs: Temp: 98 F (36.7 C) | BP: 112/74 | Pulse: 93 | Resp: 18 | Pain Ratin (out of 10) | Weight: 71.8 kg (158 lb 4.6 oz) | O2 Device: Room Air O2 Flow Rate (L/min): 3 l/min | SpO2: 100 % Maximum Temperatures (last 24 hours) Temperature Maximum Max Temp 98.6 F (37 C) Intake and Output: 07/25 0700 - 07/26 0659 In: 2618 [Oral:1445] Out: 1000 [Urine:1000] Physical Exam Constitutional: Appearance: Normal appearance. HENT: Head: Normocephalic and atraumatic. Mouth/Throat: Mouth: Mucous membranes are moist. Cardiovascular: Rate and Rhythm: Normal rate and regular rhythm. Pulses: Normal pulses. Heart sounds: Normal heart sounds. Pulmonary: Effort: Pulmonary effort is normal. Abdominal: General: Bowel sounds are normal. Palpations: Abdomen is soft. Musculoskeletal: General: Swelling, tenderness, deformity and signs of injury present. Skin: General: Skin is warm. Coloration: Skin is not jaundiced. Neurological: General: No focal deficit present. Mental Status: She is alert. Mental status is at baseline. Labs Labs (Last day) 07/26/20 0845 - 07/26/20 0845 CBC 07/26/20 0845 CBC Hemoglobin 11.5-15.8 (g/dL) 8.5 Medical Decision making MDM Reviewed: previous chart, nursing note and vitals Reviewed previous: labs teffanie Perea PA - 07/25/2020 2:58 PM CST ORTHOPAEDIC POST-OPERATIVE PROGRESS NOTE 07/25/2020 POD # 1 Right total hip arthroplasty Patient of Dr. Villarreal S: Norma Modi is a 74yr female. Patient currently reports of 4/10 at rest, reports of 9/10 pain with therapy. Currently working with physical therapy. Tolerating diet. Reports passing flatulence, but denies BM. Denies chest pain, shortness of breath, nausea, vomiting and abdominal pain. Denies numbness, tingling and calf pain. O: Temp Readings from Last 1 Encounters: 07/25/20 98.8 F (37.1 C) BP Readings from Last 1 Encounters: 07/25/20 108/73 Pulse Readings from Last 1 Encounters: 07/25/20 110 Gen: Sitting in the chair. No acute distress. Alert and oriented. Physical therapist Elyse was present during the encounter. Incision: No strikethrough drainage. Ioban dressing in place. Dressing C/D/I. right HIP: Mild tenderness to palpation of the right thigh. Compartments are compressible. Sensation is grossly intact to light touch L3-S1. Motor is grossly intact, able to flex/extend hip, knee, dorsiflex/plantarflex ankle and wiggle toes. DP and PT pulses are palpable. No calf tenderness to palpation bilaterally. Extremity is warm and well perfused. Lab Results Component Value Date WBC 5.8 07/24/2020 RBC 3.74 (L) 07/24/2020 HEMOGLOBIN 10.3 (L) 07/25/2020 HEMATOCRIT 35.9 07/24/2020 MCV 96.0 07/24/2020 MCH 31.6 07/24/2020 MCHC 32.9 07/24/2020 PLTCOUNT 257 07/24/2020 Lab Results Component Value Date INR 1.1 (L) 07/23/2020 A/P: 1. s/p Right total hip arthroplasty: DVT prophylaxis: Lovenox x 28 days total post-operative Pain control: Continue current regimen. Wound care: Surgical dressing to remain in place for at least 48-72 hours post-operative. PT/OT: continue; WBAT, standard hip precautions Activity: as tolerated; Disposition/planning: continue cares; Follow up: 2 weeks with JARAD and [address] Villarreal 2. Acute Blood loss Anemia: Expected Steffanie Perea Pa-C Debbie Arellano, - 07/25/2020 1:36 PM CST DAILY PROGRESS NOTE Norma Modi is a 74yr old female admitted on 07/23/2020 5:30 PM. Impression / Plan Principal Problem: Closed displaced fracture of right femoral neck (HCC) Active Problems: Femoral neck fracture (HCC) Resolved Problems: * No resolved hospital problems. * Right displaced femoral neck fracture Right total hip arthroplasty Appreciate orthopedic surgery intervention Multimodal pain regimen Follow-up repeat lab work Await PT evaluation CODE STATUS full code Disposition: Pending PT evaluation. Interval History HPI Patient seen and examined sitting out of bed to chair. Reports some pain and discomfort. is at bedside he is hard of hearing however reports he would be able to assist patient at home if she is available to come home with home therapy Review of Systems Review of Systems Constitutional: Positive for activity change. Negative for appetite change and fatigue. Respiratory: Negative for cough and shortness of breath. Cardiovascular: Negative for chest pain, palpitations and leg swelling. Gastrointestinal: Negative for abdominal distention and abdominal pain. Genitourinary: Negative for difficulty urinating. Musculoskeletal: Positive for gait problem. Neurological: Negative for dizziness and weakness. Physical Exam Vital Signs: Temp: 98.8 F (37.1 C) | BP: 108/73 | Pulse: 110 | Resp: 16 | Pain Ratin (out of10) | Weight: 71.8 kg (158 lb 4.6 oz) | O2 Device: Room Air O2 Flow Rate (L/min): 3 l/min | SpO2: 98 % Maximum Temperatures (last 24 hours) Temperature Maximum Max Temp 99.7 F (37.6 C) Intake and Output: 07/24 0700 - 07/25 0659 In: 4652 [Oral:1840] Out: 772 [Urine:442] Physical Exam Constitutional: Appearance: Normal appearance. HENT: Head: Normocephalic and atraumatic. Mouth/Throat: Mouth: Mucous membranes are moist. Cardiovascular: Rate and Rhythm: Normal rate and regular rhythm. Pulses: Normal pulses. Heart sounds: Normal heart sounds. Pulmonary: Effort: Pulmonary effort is normal. Abdominal: General: Bowel sounds are normal. Palpations: Abdomen is soft. Musculoskeletal: General: Swelling, tenderness, deformity and signs of injury present. Skin: General: Skin is warm. Coloration: Skin is not jaundiced. Neurological: General: No focal deficit present. Mental Status: She is alert. Mental status is at baseline. Labs Labs (Last day) 07/25/20 1119 - 07/25/20 1119 CBC 07/25/20 1119 CBC Hemoglobin 11.5-15.8 (g/dL) 10.3 Medical Decision making MDM Reviewed: previous chart, nursing note and vitals Reviewed previous: labs ebbie Bar DO - 07/24/2020 10:00 AM CST DAILY PROGRESS NOTE Norma Modi is a 74yr old female admitted on 07/23/2020 5:30 PM. Impression / Plan Principal Problem: Closed displaced fracture of right femoral neck (HCC) Active Problems: Femoral neck fracture (HCC) Resolved Problems: * No resolved hospital problems. * Right displaced femoral neck fracture Right hip hemiarthroplasty versus total hip arthroplasty Appreciate orthopedic surgery intervention Multimodal pain regimen Follow-up repeat lab work CODE STATUS full code Interval History HPI Patient seen and examined post surgery. She is still drowsy. Currently does not report pain. Review of Systems Review of Systems Constitutional: Positive for activity change. Negative for appetite change and fatigue. Respiratory: Negative for cough and shortness of breath. Cardiovascular: Negative for chest pain, palpitations and leg swelling. Gastrointestinal: Negative for abdominal distention and abdominal pain. Genitourinary: Negative for difficulty urinating. Musculoskeletal: Positive for gait problem. Neurological: Negative for dizziness and weakness. Physical Exam Vital Signs: Temp: 97.9 F (36.6 C) | BP: 103/63 | Pulse: 75 | Resp: 16 | Pain Ratin (out of 10) | Weight: 71.8 kg (158 lb 4.6 oz) | O2 Device: Room Air | SpO2: 97 % Maximum Temperatures (last 24 hours) Temperature Maximum Max Temp 97.9 F (36.6 C) Intake and Output: 07/23 0700 - 07/24 0659 In: 760 [Oral:620] Out: 750 [Urine:750] Physical Exam Constitutional: Appearance: Normal appearance. HENT: Head: Normocephalic and atraumatic. Mouth/Throat: Mouth: Mucous membranes are moist. Cardiovascular: Rate and Rhythm: Normal rate and regular rhythm. Pulses: Normal pulses. Heart sounds: Normal heart sounds. Pulmonary: Effort: Pulmonary effort is normal. Abdominal: General: Bowel sounds are normal. Palpations: Abdomen is soft. Musculoskeletal: General: Swelling, tenderness, deformity and signs of injury present. Skin: General: Skin is warm. Coloration: Skin is not jaundiced. Neurological: General: No focal deficit present. Mental Status: She is alert. Mental status is at baseline. Labs Labs (Last day) 07/24/20535 - 07/23/202133 BLOOD BANK 07/24/2053507/23/202133 BLOOD BANK ABO Type A A Rh Type Positive Positive Antibody Screen Negative Expiration Date 07/27/2020 23:59 07/24/20535 - 07/23/202133 CBC 07/24/2053507/23/202133 CBC WBC 4.0-11.0 (K/uL) 5.8 9.3 RBC 3.80-5.30 (M/uL) 3.74 3.95 Hemoglobin 11.5-15.8 (g/dL) 11.8 12.5 Hematocrit 35.0-45.0 (%) 35.9 38.1 MCV 80.0-98.0 (fL) 96.0 96.5 MCH 25.5-34.0 (pg) 31.6 31.6 MCHC 31.5-36.5 (g/dL) 32.9 32.8 RDW-CV 11.5-15.5 (%) 14.5 14.2 RDW-SD 35.5-50.0 (fl) 50.1 50.4 Platelet Count 140-400 (K/uL) 257 276 MPV 8.5-12.0 (fL) 9.9 10.2 07/24/2036 - 07/23/202133 CHEMISTRY 07/24/2053507/23/202133 CHEMISTRY Glucose 70-100 (mg/dL) 100 163 Sodium 135-145 (meq/L) 137 137 Potassium 3.5-5.3 (meq/L) 4.0 3.5 Chloride 99-110 (meq/L) 107 106 CO2 20-29 (meq/L) 22 21 Anion Gap with K 6-20 (meq/L) 12 14 BUN 6-22 (mg/dL) 20 15 Creatinine 0.60-1.10 (mg/dL) 0.79 0.79 BUN/Creatinine Ratio 10.0-25.0 25.3 19.0 Calcium 8.5-10.5 (mg/dL) 8.3 8.5 Corrected Calcium 8.5-10.5 (mg/dL) 8.7 Bilirubin Total 0.2-1.2 (mg/dL) 0.4 Alkaline Phosphatase 30-150 (U/L) 75 ALT - SGPT 0-55 (U/L) 24 AST - SGOT 0-35 (U/L) 29 Protein Total 6.0-8.2 (g/dL) 6.6 Albumin 3.5-5.0 (g/dL) 3.8 eGFR >=60 (mL/min/1.73m2) 86 86 eGFR Non- >=60 (mL/min/1.73m2) 71 71 07/23/202133 - 07/23/202133 GENERAL COAGULATION 07/23/202133 GENERAL COAGULATION Protime 12.0-14.5 (secs) 13.7 INR 2.0-3.5 1.1 07/24/20535 - 07/23/202133 OTHER 07/24/2053507/23/202133 OTHER [age]Years) [age] Medical Decision making MDM Reviewed: previous chart, nursing note and vitals Reviewed previous: labs hFernando moore MD - 07/24/2020 7:30 AM CST ORTHO progress note. Norma Modi is a 74yr old female admitted on 07/23/2020 5:30 PM Day of Surgery Status Post: Procedure(s): RIGHT TOTAL HIP ARTHROPLASTY Patient doing ok, complains of mild pain with current meds. The patient denies nausea. Patient complains of right hip pain. Lab Results Component Value Date HEMOGLOBIN 11.8 07/24/2020 Current Vital Signs Temp: 97.9 F (36.6 C) BP: 103/63 Pulse: 75 O2 Device: Room Air Resp: 16 Pain Ratin (out of 10) Weight: 71.8 kg (158 lb 4.6 oz) SpO2: 97 % Gen - NAD, A/O x 3 Right LE - TTP over hip, SILT dp/sp/s/s, 5/5 EHL/TA/GSC, foot warm/well perfused Plan: Ortho Pre-Op Note Dx: Right displaced femoral neck fracture Plan: Right hip hemiarthroplasty versus total hip arthroplasty and any other indicated procedures Risks/Benefits/Alternatives to surgery and post-op rehab plan were discussed with the patient. Risksinclude but not limited to: Bleeding, possibility of transfusion, infection, injury to associated structures, DVT/PE, failure of procedure, reoperation, implant failure, persistent joint pain or stiffness. Loss of life/limb was discussed with the patient. Limb length discrepancy and dislocation risks were discussed with the patient as well. All questions answered, no guarantees implied or given Rodolfo Villarreal MD documented in this encounter H&P Notes Dianna Clay MD - 07/23/2020 6:12 PM CST Hospital Admission History and Physical Assessment / Plan Closed right displaced femoral neck fracture s/p mechanical fall Acute right hip pain, secondary to above - orthopedics consult, appreciate recommendations. - pain/nausea control - delirium/fall protocol - gentle IV fluids - regular diet now, NPO at midnight - PT/OT - the patient is considered low risk for an intermediate risk surgery. She has an RCRI score of 3.9%or class I risk for [address], or cardiac arrest. She can perform > 4 METS equivalents. No cardiopulmonary testing is indicated. Code: FULL Diet: Regular, NPO at midnight DVT prophylaxis: Heparin SQ HPI / History / ROS HPI Norma is a 74 year old female with no significant PMH who presents as a direct admission from [facility] ER for acute right hip pain in setting of displaced femoral neck fracture. Patient reports that this morning she missed a step outside and fell on the ice. She landed directly onto her right hip and has had severe right hip pain since that time. She did not hit her head or lose consciousness. She recalls all events prior to and directly after the fall. No prodromal symptoms of dizziness, visual disturbance, chest pain, palpitations or shortness of breath. She is very independent in her cares andlives at home with her . She does not take any medications or blood thinners. Pain is improved if she keeps her leg still. History Patient Active Problem List Diagnosis Routine general medical examination at a health care facility Symptomatic menopausal or female climacteric states Vaginal leukorrhea Prior to Admission Medications Prescriptions Last Dose Informant Patient Reported? Taking? Multiple Vitamin (MULTIVITAMIN) TABS 07/23/2020 at 0830 Yes Yes Sig: Take 1 tablet by mouth 1 time per day. glucosamine sulfate 1000 MG TABS Yes No Sig: Take 1 tablet by mouth 2 times a day. Facility-Administered Medications: None No Known Allergies History reviewed. No pertinent past medical history. History reviewed. No pertinent surgical history. History reviewed. No pertinent family history. Social History Socioeconomic History Marital status: Spouse name: Not on file Number of children: Not on file Years of education: Not on file Highest education level: Not on file Tobacco Use Smoking status: Never Smoker Smokeless tobacco: Never Used Substance and Sexual Activity Alcohol use: No Alcohol/week: 0.0 standard drinks Drug use: No Review of Systems Review of Systems Constitutional: Negative. HENT: Negative. Eyes: Negative. Cardiovascular: Negative. Gastrointestinal: Negative. Endocrine: Negative. Genitourinary: Negative. Musculoskeletal: Right hip and groin pain Skin: Negative. Neurological: Negative. Hematological: Negative. Psychiatric/Behavioral: Negative. Physical / Results Current Vital Signs Temp: 97.8 F (36.6 C) BP: 138/92 Weight: 71.8 kg (158 lb 4.6 oz) SpO2: 95 % Resp: 16 Pulse: 74 Current BMI (>50 = increased risk): 23.36 O2 Device: Room Air Pain Ratin Physical Exam Constitutional: General: She is not in acute distress. Appearance: Normal appearance. HENT: Head: Normocephalic and atraumatic. Right Ear: External ear normal. Left Ear: External ear normal. Cardiovascular: Rate and Rhythm: Normal rate and regular rhythm. Pulses: Normal pulses. Heart sounds: Normal heart sounds. Pulmonary: Effort: Pulmonary effort is normal. Breath sounds: Normal breath sounds. Neurological: Mental Status: She is alert. NET MVC DEVELOPER documented in this encounter Consult Notes Stevenson Garrett MD - 07/23/2020 6:44 PM CST Orthopedic Consult Note Reason for Consultation: Right femoral neck fracture Assessment: Norma is a 74 yo female with no significant past medical history presenting with a right displaced femoral neck fracture after slipping on the ice. Patient is neurovascularly intact in the right lower extremity. She is a community ambulator without an assistive device able to walk multiple city blocks, lives independently and still drives herself. We recommend fixation of this fracture with a malou vs total hip arthroplasty. Risks, benefits and alternatives to surgery were discussed with patient. We will discuss the patient with Dr. Villarreal in the AM. Plan: - Discussed and seen Dr. Ramirez - OR tomorrow for malou vs total hip arthroplasty - NPO at midnight - bedrest HPI: Patient is an otherwise healthy 74 yo female presenting with a right femoral neck fracture after she slipped on the ice at her home in [place]. Patient reports early this morning she was outside when she slipped landing on right hip. Had immediate pain. She was taken to [place] ED whereshe was found to have the hip fracture. She was transferred to our facility for further evaluation and care. She denies numbness, tingling and weakness in the leg. Denies other areas of pian. She does not take anticoagulation meds. She denies history of stroke, heart attack or DVT. She is able to ambulate multiple city blocks without assistance . Physical Exam: Vitals: 07/23/20 1700 07/23/20 1728 BP: 138/92 Pulse: 74 Resp: 16 Temp: 97.8 F (36.6 C) SpO2: 95% Weight: 71.8 kg (158 lb 4.6 oz) Height: 175.3 cm (69") Gen: Lying in bed, NAD Resp: Quiet, nonlabored respirations on RA Cards: Reg rate as above Neuro: No focal deficits, Speech is normal. MSK: On gross examination of RLE, no blisters, lacerations or open wounds present; swelling presentover right hip; there is tenderness to palpation over right hip; compartments soft and non-tender, no pain will passive stretching; no calf tenderness, negative Homans sign; pulses 2+, capillary refillbrisk, limb warm and well perfused, SPN/DPN/sural nerves intact, DTR's 2+, no ankle clonus; able to wiggle toes Labs: pending Imaging: - X-ray: left displaced femoral neck fracture PMH: History reviewed. No pertinent past medical history. PSH: History reviewed. No pertinent surgical history. Review of systems: Denies fever, chills, weakness Denies chest pain and shortness of breath Denies abdominal pain Denies numbness or tingling in extremities Denies skin wounds or rashes Stevenson Garrett MD Orthopedic Surgery Resident - PGY-2 NET MVC DEVELOPER Associated attestation - Wu Ramirez MD - 07/23/2020 7:16 PM ASP NET MVC DEVELOPER I discussed the patient with the resident and personally interviewed and examined the patient. I verified in the medical record all resident documentation/findings, including history, physical exam, and medical decision making, and I agree with the resident's documentation. Case discussed with Dr. Karo Villarreal Medical Decision Making I have: Independently visualized and interpreted an image, tracing or specimen previously or subsequently interpreted by another provider. Discussed results of laboratory, radiology or other diagnostic tests with the physician who performed or interpreted the study. Obtained/reviewed old records from [facility] or elsewhere (details outlined elsewhere in note). Obtained history from a person other than the patient (details outlined elsewhere in note). Discussed case with another provider (details outlined elsewhere in note). documented in this encounter Miscellaneous Notes Care Planning - John Sinha RN - 07/28/2020 1:16 PM ASP NET MVC DEVELOPER Problem: RISK FOR FALLS Goal: FALL PREVENTION BEHAVIOR Description: DEFINITION: Personal or family health care marketing manager actions to minimize risk factors that might precipitate falls in the personal environment. 1=Never demonstrated, 2=Rarely demonstrated, 3=Sometimes demonstrated, 4=Often demonstrated, 5=Consistently demonstrated. 07/28/2020 1315 by John Sinha RN Outcome: Outcome acceptable for discharge 07/28/2020 1137 by John Sinha RN Outcome: NOC Rating 4 Flowsheets (Taken 07/28/2020 1137) Plan of care reviewed with: Patient Patient specific goal for the day: To remain fall-free. Patient Progress: Patient is AI&O x4, uses call light appropriately, fall precautions in place. Patient is up with assist x 1, gait belt and walker. She has been free of falls Goal: MOBILITY Description: DEFINITION: Ability to move purposefully in own environment independently with or without assistive device. 1=Severely compromised, 2=Substantially compromised, 3=Moderately compromised,4=Mildly compromised, 5=Not compromised. Outcome: Outcome acceptable for discharge Problem: ACUTE PAIN Goal: CLIENT SATISFACTION: PAIN MANAGEMENT Description: DEFINITION: Extent of positive perception of nursing care to relieve pain. 1=Not at all satisfied, 2=Somewhat satisfied, 3=Moderately satisfied, 4=Very satisfied, 5=Completely satisfied. 07/28/2020 1315 by John Sinha RN Outcome: Outcome acceptable for discharge 07/28/2020 1137 by John Sinha RN Outcome: NOC Rating 4 Flowsheets (Taken 07/28/2020 1137) Plan of care reviewed with: Patient Patient specific goal for the day: Patient vy rate pain as a 5/10 or less on the 0-10 pain scale. Patient Progress: Patient reports 2/10 pain to R) hip. Pt reports pain is adequately controlled withtylenol. Problem: IMPAIRED PHYSICAL MOBILITY Goal: MOBILITY Description: DEFINITION: Ability to move purposefully in own environment independently with or without assistive device. 1=Severely compromised / Total assistance: Performs less than 25% of activity; 2=Substantially compromised / Maximal assistance: Performs 25-49% of activity; 3=Moderately compromised / Moderate assistance: Performs 50-74% of activity; 4=Mildly compromised / Modified independence: Needs assistive device, supervision, minimal contact,or safety is a concern; 5=Not compromised / Complete independence. Outcome: Outcome acceptable for discharge Goal: NEUROLOGICAL STATUS: CENTRAL MOTOR CONTROL Description: DEFINITION: Ability of the central nervous system to coordinate skeletal muscle activity for body movement. 1=Severely compromised / Total assistance: Performs less than 25% of activity; 2=Substantially compromised / Maximal assistance: Performs 25-49% of activity; 3=Moderately compromised / Moderate assistance: Performs 50-74% of activity; 4=Mildly compromised / Modified independence: Needs assistive device, supervision, minimal contact,or safety is a concern; 5=Not compromised / Complete independence. Outcome: Outcome acceptable for discharge Goal: SKELETAL FUNCTION Description: DEFINITION: Ability of the bones to support the body and facilitate movement. 1=Severely compromised/ Total assistance: Performs less than 25% of activity; 2=Substantially compromised / Maximal assistance: Performs 25-49% of activity; 3=Moderately compromised / Moderate assistance: Performs 50-74% of activity; 4=Mildly compromised / Modified independence: Needs assistive device, supervision, minimal contact,or safety is a concern; 5=Not compromised / Complete independence. Outcome: Outcome acceptable for discharge Problem: RISK FOR INFECTION Goal: IMMUNE STATUS Description: DEFINITION: Natural and acquired appropriately targeted resistance to internal and external antigens. 1 = Severely compromised, 2 = Substantially compromised, 3 = Moderately compromised, 4 = Mildly compromised, 5 = Not compromised. Outcome: Outcome acceptable for discharge Goal: INFECTION SEVERITY Description: DEFINITION: Severity of signs and symptoms of infection. 1 = Severe, 2 = Substantial, 3 = Moderate, 4 = Mild, 5 = None. Outcome: Outcome acceptable for discharge Goal: INFECTION SEVERITY: Description: DEFINITION: Severity of signs and symptoms of infection during the first 28 days of life. 1 = Severe, 2 = Substantial, 3 = Moderate, 4 = Mild, 5 = None. Outcome: Outcome acceptable for discharge Problem: IMPAIRED URINARY ELIMINATION Goal: URINARY CONTINENCE Description: DEFINITION: Control of elimination of urine from the bladder. 1=Never demonstrated, 2=Rarely demonstrated, 3=Sometimes demonstrated, 4=Often demonstrated, 5=Consistently demonstrated. 07/28/2020 1315 by John Sinha, RN Outcome: Outcome acceptable for discharge 07/28/2020 113 by John Sinha, RN Outcome: NOC Rating 4 Flowsheets (Taken 07/28/20201136) Plan of care reviewed with: Patient Patient specific goal for the day: Patient will be able to void independently. Patient Progress: Patient able to void urine on own, and is continent. Problem: RISK FOR SHOCK Goal: BLOOD LOSS SEVERITY Description: DEFINITION: Severity of signs and symptoms of internal or external bleeding. 1 = Severe, 2 = Substantial, 3 = Moderate, 4 = Mild, 5 = None. Outcome: Outcome acceptable for discharge Goal: CIRCULATION STATUS Description: DEFINITION: Unobstructed, unidirectional blood flow at an appropriate pressure through large vessels of the systemic and pulmonary circuits. 1 = Severe deviation from normal range, 2 = Substantial deviation from normal range, 3 = Moderate deviation from normal range, 4 = Mild deviation from normal range, 5 = No deviation from normal range. Outcome: Outcome acceptable for discharge ase Renzo - Rodolfo Kelley, STUDENT - 07/28/2020 12:26 PM CSTCASE MANAGEMENT REFERRAL EDUCATION Patient in need of the following services: Transitional Care / [facility] Facility / Swing Bed Discussion of this need and/or printed listing of available agencies has been provided to patient/substitute decision maker. Opportunities have been given for questions to be asked and answered. Patient/Substitute decision maker agency preferences for services (list in order of preference): 1. [facility] 2. [facility] 3. [facility] Referrals Made: Profiled via [facility] to following SNFs: [facility], [facility]. [facility] Medicare Comparison Information: Medicare guidelines require referring agencies to provide information regarding agency quality ratings. [facility] may assist with questions about facilities but cannot make recommendations. Patients and their families/decision makers are able to compare ratings of facilities at the following website: h ttps://www.medicare.gov/norxt-srrw-ryjnehvvm/mrsj-clndbwb-xozhsxc-hospitals-[facility] r-providers or you may call 1-800-MEDICARE Acceptance/Placement: [facility] shares necessary clinical information with potential agencies to allow them to screen patients for safe admission to their facilities. This information is shared via secure communication. Acceptance by a post-acute facility is dependent on many factors including space, care needs, staffing, and insurance coverage. Financial disclosure: Verification of ownership of any agency/facility is available in the above Medicare website. [facility] is affiliated with [facility]-owned home care, hospice, [facility] facilities, including agencies with [facility] in the name and [facility]. Additional agencies may not have [facility] in their name. Medicare guidelines require [facility] to provide a written list of options for your desired care. Youwill be provided a copy if desired. A copy of this document will be given to patient/substitute decision maker as confirmation of conversation regarding referrals and placement options. Rodolfo Kelley Social Work Cellar Pumper are Planning - John Sinha RN - 07/28/2020 11:39 AM ASP NET MVC DEVELOPER Problem: RISK FOR FALLS Goal: FALL PREVENTION BEHAVIOR Description: DEFINITION: Personal or family health care marketing manager actions to minimize risk factors that might precipitate falls in the personal environment. 1=Never demonstrated, 2=Rarely demonstrated, 3=Sometimes demonstrated, 4=Often demonstrated, 5=Consistently demonstrated. Outcome: NOC Rating 4 Flowsheets (Taken 07/28/2020 113) Plan of care reviewed with: Patient Patient specific goal for the day: To remain fall-free. Patient Progress: Patient is AI&O x4, uses call light appropriately, fall precautions in place. Patient is up with assist x 1, gait belt and walker. She has been free of falls Problem: ACUTE PAIN Goal: CLIENT SATISFACTION: PAIN MANAGEMENT Description: DEFINITION: Extent of positive perception of nursing care to relieve pain. 1=Not at all satisfied, 2=Somewhat satisfied, 3=Moderately satisfied, 4=Very satisfied, 5=Completely satisfied. Outcome: NOC Rating 4 Flowsheets (Taken 07/28/2020 1131) Plan of care reviewed with: Patient Patient specific goal for the day: Patient vy rate pain as a 5/10 or less on the 0-10 pain scale. Patient Progress: Patient reports 2/10 pain to R) hip. Pt reports pain is adequately controlled withtylenol. Problem: IMPAIRED URINARY ELIMINATION Goal: URINARY CONTINENCE Description: DEFINITION: Control of elimination of urine from the bladder. 1=Never demonstrated, 2=Rarely demonstrated, 3=Sometimes demonstrated, 4=Often demonstrated, 5=Consistently demonstrated. Outcome: NOC Rating 4 Flowsheets (Taken 07/28/2020 1137) Plan of care reviewed with: Patient Patient specific goal for the day: Patient will be able to void independently. Patient Progress: Patient able to void urine on own, and is continent. utrition Team - Kimberly Thibodeaux RD - 07/28/2020 11:28 AM CST Nutrition Note Patient admitted on 07/23/2020 5:30 PM for Principal Problem: Closed displaced fracture of right femoral neck (HCC) Active Problems: Femoral neck fracture (HCC) Per EMR Malnutrition Screening Tool completed at admission, pt does not meet screening criteria for an increased potential for developing malnutrition with an MST Score of 0 (Score > 2 considered positive for nutrition risk). Nutrition screening revealed no difficulty eating or significant unintentional weight loss prior to admission. Past medical history noted and is not currently placing pt atincreased nutrition risk. Height: 175.3 cm (5' 9") Weight: 71.8 kg (158 lb 4.6 oz) BMI: Body mass index is 23.38 kg/m. Nutrition (From admission, onward) Start Ordered 07/24/20 1350 ADVANCE DIET TOLERATED ONCE 07/24/20 1346 07/24/20 1350 Diet - Regular Now Question: Standard Diets Answer: Regular 07/24/20 1346 07/24/[address] [facility]; Other (Specify in comments) (ENSURE ENLIVE) BID BID Comments: Give supplement cold with medications twice a day. The supplement is an intervention for identified nutrition risk factors. * Do not give if patient is NPO (unless the orders specify NPO with supplement) or if medication should not be given with food. Question Answer Comment Location [facility] Dietary Supplement Other (Specify in comments) ENSURE ENLIVE 07/23/20 1908 Pt is currently on a regular diet and has been ordering well past 3 days. Pt said her appetite has always been good and reported not losing wt for 3 years. Breakfast: oatmeal or cereal with milk Lunch: Homemade soups, macaroni with beef, meat and potatoes Dinner: cereal, sandwiches Snacks: cookies and crackers Plan to monitor po intake adequacy during admission. If provider feels pt has nutritional concerns,please send Inpatient Dietitian consult with indication for referral. Kimberly Thibodeaux RD Alpha Pager: [phone] ase [facility] - Rodolfo Kelley, STUDENT - 07/28/2020 11:20 AM CSTCASE MANAGEMENT / SOCIAL SERVICE FINAL TRANSITION PLAN TRANSITION DATE: 07/28/2020 TRANSITION TIME: 1400 INTENDED PAYER SOURCE FOR AGENCY: Medicare TRANSITION DESTINATION: [facility], [place] N2N: or DOES ACCEPTING FACILITY REQUIRE COVID TESTING BEFORE DISCHARGE: Needs one negative test within 24-48 hours TRANSITION TRANSPORTATION: [employer] Wheelchair (P:[phone]) TRANSPORTATION PAYMENT: Billed to Case Management Due to: expedite discharge TRANSITION CHOICES OFFERED: Swing Bed DOES THE PATIENT HAVE A PRIMARY CARE PHYSICIAN? Yes Deandre Velasquez MD PATIENT / SUBSTITUTE DECISION MAKER GOAL UPON TRANSITION: First Choice: Swing Bed PATIENT CHOICE EDUCATION: Patient/family completed Choice Form with Painter And DecoratorManager MEDICARE 3 IP MIDNIGHT CRITERIA MET: Yes: RESOURCE(S) PROVIDED: Placement and Transportation DOES PATIENT HAVE CLOTHING TO WEAR AT DISCHARGE? Yes ANTICIPATED MODE OF TRANSPORT TO AND FROM FOLLOW UP APPOINTMENTS: Drive self Family Car VERIFIED CORRECT PHARMACY IS ENTERED FOR DISCHARGE: No METHOD OF PRESCRIBING MEDICATIONS: Reconcile medications as Patient Transfer ("65 button") TRANSITION ROUNDING COMPLETED WITH THE FOLLOWING: Patient / family Painter And Decorator Attending MD Bedside RN Discussed in person COMMENTS / PATIENT AND FAMILY RESPONSE TO PLAN: Chart review complete. Patient agreed to [facility] Swingbed placement. Discharge transportation arranged for 2pm [id number]. Made numerous attempts to contact patient's spouse regarding discharge transportation. Messages wereleft with no return calls. Patient also attempted to get in contact with spouse. SPECIAL TRANSITION DAY INSTRUCTIONS TO NURSE / MD: AWNING FINISHER: Please fax interagency packet to above fax number. Nursing: Please call report at above number before patient leaves. MD: Please do Interagency transfer order set, ensure orders for PT, OT are included. When doing medication orders, there cannot be any range orders and indication is needed for all meds. Correct pharmacy is entered for e- prescribing meds to [facility], please print any controlled substance prescrip tions. CURRENT READMISSION RISK SCORE / HANDOFF: Predictive Risk Score Risk of Unplanned Readmission: 11.8 Handoff given: N/A SIGNED: Rodolfo Kelley Social Work Cellar Pumper NET MVC DEVELOPER Occupational Therapy - Ayleen Mai OTR/Tamy - 07/28/2020 10:00 AM CST Occupational Therapy Acute Care Progress Note Impression/Recommendations Pt continues to function below reported baseline level of independence. Pt requires assist x 1 for ADLs/transfers. Poor recall and follow through of hip precautions, requird repeated instruction/training this date. Minimal assistance with car transfer in OT dept. Pt states she thinks she can direct spouse with technique at discharge. OT recommends low-intensity therapy setting (i.e. ST SNF, TCU, swing bed, etc) when medically stable with continued skilled OT services. Acute OT will continue per POC to maximize functional strength, activity tolerance, cognition, safety, balance, and independence with ADLs, transfers and functional mobility, needed for optimal quality of life. Objective Precautions: fall risk, bed/chair alarms, standard hip precautions (Do not flex hip past 90 degrees, Do not adduct hip past midline, Limit hip rotation / do not cross legs), WBAT R LE Cognition: Pt is alert, oriented and agreeable to therapy. Pt able to follow most 1-step simple commands. Pt has poor recall of extensive therapy session from prior session. However, with further discussion and review, she states "oh yes, it's coming back to me". Not able to recall and state hip precautions; education provided by OT for hip precautions with demonstration and then return demonstrationpracticed by Pt with OT assistance to promote understanding. Poorly follows instruction for extending R LE with sit <> stand transfers to increase ease, control, adhering to hip precautions and pain mgmt. Decreased safety awareness. Pt has high anxiety and requires increased time to process and comprehend learning/information, requires repeated education and reassurance t/o session on all ADLs,transfers, AE options/recommendations, where to obtain. Finances are a concern for her for a w/c ride and AE, so she had many questions re: her options for this. OT provided education, reassurance and therapeutic listening as Pt needed. Pt to benefit from further reinforcement of training/education on safety/technique with ADLs, transfers, and adaptive equipment use to promote optimal safety and function. UE: U/E exercise performed to promote joint integrity, reduce risk of contracture formation and facilitate enhancement of strength and endurance/activity tolerance, to further independence with ADLs/IADLs. Pt completed B UE: AROM 15 x 1 for all available motions/planes, against 1# hand weight (OT stabilized forearm for wrist motions to eliminate Pt's mm substitution patterns). OT provided education on correct technique, speed and achieving full (tolerated) end range. Pt will require reinforcement ofthis education/training. Intermittent rest breaks required d/t weakness, fatigue and decreased activity tolerance. Patient required assist to track the number of repetitions and maintain proper form throughout each exercise. ADLs: Required education/training on hip precautions and how to implement into ADLs/transfers. Frequent rest breaks utilized t/o session to assist with recovery/tolerance of activity d/t pain, weakness, and fatigue. Feeding: independent with items in reach from seated position Grooming: minimal assistance with unilateral support and washing 1-hand at a time d/t weakness, decreased balance and fatigue. Does not tolerate standing at sink for additional g/h tasks. Needs to be seated to complete. Dressing: Upper body: independent Lower body: Total assistance without AE for clothing mgmt over distal LE's while seated and to adhere to hip precautions. Trained with single fold machine operator, sock aid and minimal assistance with return demonstration for mgmt of sweatpants and bilateral gripper socks. Will benefit from continued training/practice with AE. Pt states if she doesn't get AE, that she thinks her spouse could assist her (spouse not present to confirm/deny) Toileting: minimal assistance clothing mgmt, no hygiene cares d/t didn't need to use bathroom during toilet transfer training Bathing: Education/training provided on safety, technique, adaptive equipment options/recommendations and energy conservation techniques. Pt verbalized understanding/agreement. ADL education/comments: Education/training on proper body mechanics to promote safety with ADLs. Education/training on correct technique and safety with ADLs (such as grooming, dressing, toileting and bathing) as well as transfers (including bed, chair, toilet, tub/shower and car transfers). Educationon energy conservation techniques and how to implement into daily routines. Education on sitting forsafety with ADL's/IADL's as warranted (I.e. dressing, bathing, grooming, meal prep, etc). Education on home modifications and safety strategies to reduce fall risk and promote functional safety/independence t/o home setting (i.e. Remove scatter rugs, cords, clear pathways, keep frequently used items be tween hip <> shoulder height to increase ease/safety with item retrieval, etc). Education and training on adaptive equipment options and recommendations. Pt to benefit from further reinforcement of education/training provided this date. Pt verbalized understanding to all education. Answered allPt's questions to their satisfaction. Transfers: Bed: minimal assistance with increased time/effort with supine to sit with HOB flat, no side rail to simulate home set-up. Chair: minimal assistance with increased time/effort, instruction on technique (hand, body placement, extending R LE, etc). Toilet: minimal assistance x 1 for safety/balance with sit <> stand and turning to align selfwith transfer surface. Instruction on safety and technique provided. Tub/shower: Initiated education on technique and AE options; declines to perform in dept d/t fatigue and hip pain with activity. Car: minimal assistance with mgmt of R LE for car transfer in OT dept; education/training provided on car seat set-up (scoot seat back and recline back support to allow greater/open hip angle, transfer technique, adding height to seat to allow for adhering to hip precautions, etc). Car transfer completed x 2; first time was simulated in room as pt declined OT dept. However after realizing how much education goes into the transfer, she then changed her mind and agreed to go to OT dept for car transfer in car simulator. Pt felt more confident about transfer and being able to direct her spouse at discharge with car transfer completion. Functional mobility: contact guard assistance with FWW for safety/balance during dynamic standing/functional tasks and mobility related ADLs. Pt states "don't make me walk again, I just did so much with the other therapy, I can't do that". OT asked if Pt could ambulate to bathroom and then sit up inchair for ADL training and she was agreeable to this. Comment: Gait belt, non-slip footwear, used for safety with transfers/functional mobility. Pt was left sitting comfortably in bedside chair at end of session; with safety parameters in place. Call light, phone and bedside table placed within reach at end of session. Education provided on using call light and waiting for staff assistance before getting up. Pt verbalizes understanding/agreement. RN, John, OBSERVER ELECTRICAL PROSPECTING Kelly/Rodolfo, updated on Pt performance in therapy and discharge recommendations at end of session. Pain: 0-1/10 at rest, 7-8/10 with activity. Location: R LE. Pt states not feeling any pain once she is back in bed at end of OT session and denies need for pain medication. Education Education/Training provided: Education/training on purpose/role of OT, hip precautions, ADL techniques, transfer techniques, safety strategies, adaptive equipment options/use, compensatory strategies, energy conservation techniques, use of call light and importance of calling for assistance, goals, POC, and discharge recommendations. Learners: Patient Readiness: Acceptance, willing, eager Method of Training: Verbal education/explanation, demonstration, explanation with handout Response: Verbalized/demonstrated understanding, will benefit from continued reinforcement, unableto consistently perform teach back/return demonstration yet, Adaptive Equipment Recommendations Adaptive Equipment Recommended: toilet riser with arms vs. toilet riser without arms and toilet safety frame, shower chair, hand held shower, grab bars tub/shower, long handled sponge, non- slip bath mat, single fold machine operator, sock aid, long-handled shoe horn, elastic shoe laces; will continue to assess and make recommendations as appropriate. Adaptive equipment already in place: FWW Plan to obtain adaptive equipment: Patient and/or family to obtain recommended ADL equipment. Adaptive equipment recommendations/handouts provided. Goals Patient/Family Stated Goal for Session: Pt agreeable to therapy services Short Term/Senior Living Goals: ADL's: Patient will: #1)complete 3 grooming tasks safely in a standing position at the sink with SBA assist (ongoing) #2) Complete all functional transfers safely with SBA and AE prn (ongoing) #3) Complete UE and LE dressing with SBA and AE prn (ongoing) Cognition: Patient will: #4)answer safety/judgement questions with 100% accuracy to determine levelof supervision required upon discharge (ongoing) UE Strengthening/conditioning: Patient will: #5)complete 10-15 minutes of continuous UE activity to increase physical conditioning for ADL and IADL tasks (ongoing) #6)tolerate static and dynamic standing for >5 minutes to increase ability to participate in ADL's (ongoing) Patient continues to progress towards goals. Charges Treatment/Minutes: Today's Evaluation/Treatment Therapeutic exercise: 15 minutes Self care/home management: 60 minutes Total Treatment Time: 75 minutes Treatment Session / Weekly Assessment/Plan (Day 5): Will continue per OT POC while Pt remains in acute care setting. Therapist Alpha Pager Number [phone] NET MVC DEVELOPER Physical Therapy - Nell Sanders SPT - 07/28/2020 9:12 AM CSTPhysical Therapy Orthopedic Treatment Note Date: 07/27/2020 Assessment/Recommendations: The patient was admitted to hospital with diagnosis of fall, status postR MAGGIE on 07-24. Patient in chair upon entry, PT assisted patient to perform R MAGGIE exercises A-AAROM x10 seated. Transferred sit<>stand FWW minimal assistance of 1. Patient transferred on/off toilet FWW minimal assistance of 1. Patient ambulated 150' FWW contact guard assist. Patient ascended/descended 4 steps FWW, rail minimal assistance of 1. Patient transferred sit>supine minimal assistance of 1. The patient does not feel safe to return home. This patient displays functional deficits withbed mobility, transfers and ambulation and is not physically safe to return home at current level offunction. I recommend this patient receive continued physical therapy services at a [facility] to regainindependence in these deficit areas, once medically stable per MD. Acute PT will continue to follow BID M-Sat, daily Monday. Procedure/Date: R MAGGIE on 07-24-20 Precautions/Weight Bearing: WBAT R LE, standard hip precautions Subjective: Alert and Oriented. Family/Prosthodontist/Educator present for PT: none (see flowsheet) Objective: Gait belt donned for all out of bed activities. Supine to/from sit: minimal assistance of 1 Sit to/from stand: minimal assistance of 1, FWW. Patient transferred on/off toilet FWW minimal assistance of 1. Sitting Balance: Good Standing Balance: Good Gait: Patient ambulated 150' FWW contact guard assist. Stairs: Patient ascended/descended 4 steps, FWW, rail, minimal assistance of 1. Exercises: Patient completed R MAGGIE exercises times 10 repetitions with minimal assistance for active exercises. Good strength with isometric exercises. Other: Patient positioned in bed upon completion of PT session; call light in reach, tray table at side and spouse at side. Pain: (0-10 scale) At rest: 2 With Activity: 7-8 Education: Patient were educated on exercise progression, transfer techniques, gait and mobility progression including stairs today through explanation. She accepted teaching and verbalized understanding. Plan: Continue with plan of care. Time Treatment Occurred: 8:42 Gait: 0 minutes Exercise: 15 minutes Therapeutic Activity: 10 minutes TOTAL TIMED CODES: 25 minutes TREATMENT TOTAL TIME: 25 Minutes CIPRIANO Espinal Alpha pager: [phone] NET MVC DEVELOPER Associated attestation - Fernando Lutz PT - 07/28/2020 9:19 AM CSTIFernando, PT, have reviewed the attached note and agree with the notation. I was present throughout the PT session. Care Planning - Keke Loco - 07/28/2020 1:34 AM ASP NET MVC DEVELOPER Problem: IMPAIRED PHYSICAL MOBILITY Goal: MOBILITY Description: DEFINITION: Ability to move purposefully in own environment independently with or without assistive device. 1=Severely compromised / Total assistance: Performs less than 25% of activity; 2=Substantially compromised / Maximal assistance: Performs 25-49% of activity; 3=Moderately compromised / Moderate assistance: Performs 50-74% of activity; 4=Mildly compromised / Modified independence: Needs assistive device, supervision, minimal contact,or safety is a concern; 5=Not compromised / Complete independence. Outcome: NOC Rating 3 Flowsheets (Taken 07/28/2020 0126) Plan of care reviewed with: Patient Patient specific goal for the day: To be able to ambulate. Patient specific goal for the stay: To be able to ambulate. Achieve goal for stay: By discharge Patient Progress: Patient has been able to ambulate and in the room. Will continue to monitor and assess. Problem: RISK FOR FALLS Goal: FALL PREVENTION BEHAVIOR Description: DEFINITION: Personal or family health care marketing manager actions to minimize risk factors that might precipitate falls in the personal environment. 1=Never demonstrated, 2=Rarely demonstrated, 3=Sometimes demonstrated, 4=Often demonstrated, 5=Consistently demonstrated. Outcome: NOC Rating 4 Flowsheets (Taken 07/28/2020 0130) Plan of care reviewed with: Patient Patient specific goal for the day: To remain fall-free. Patient specific goal for the stay: To remain fall-free. Achieve goal for stay: By discharge Patient Progress: Patient is A&Ox3-4 and uses the call light appropriately. Call light and otheranticipated essentials within reach, bed at lowest height, nonskid footwear in place. Mobility devices in room. Will continue to monitor and assess. Problem: RISK FOR SHOCK Goal: BLOOD LOSS SEVERITY Description: DEFINITION: Severity of signs and symptoms of internal or external bleeding. 1 = Severe, 2 = Substantial, 3 = Moderate, 4 = Mild, 5 = None. Flowsheets (Taken 07/28/2020 012) Initial Score: 3 Target Score: 5 Plan of care reviewed with: Patient Patient specific goal for the day: To have hemoglobin stabilized with no further decreases. Patient specific goal for the stay: To have hemoglobin stabilized with no further decreases. Achieve goal for stay: By discharge Patient Progress: Patient's Hgb upon admission was 12.5 had surgery to fix R) hip fx. Patient's last Hgb from 07/27 AM was 8.5. Will continue to monitor andassess. Goal: CIRCULATION STATUS Description: DEFINITION: Unobstructed, unidirectional blood flow at an appropriate pressure through large vessels of the systemic and pulmonary circuits. 1 = Severe deviation from normal range, 2 = Substantial deviation from normal range, 3 = Moderate deviation from normal range, 4 = Mild deviation from normal range, 5 = No deviation from normal range. Flowsheets (Taken 07/28/2020 0119) Initial Score: Target Score: Plan of care reviewed with: Patient specific goal for the day: ccupational Therapy - Ayleen Mai OTR/Tamy - 07/27/2020 4:01 PM CSTOT followed up in PM as Pt had stated in earlier session today that she wanted OT to come back to edu tab spouse, however on PM attempt, spouse was not present. Will follow up for continued skilled therapy services as Pt is appropriate/tolerates. ABA Gonzalez, OTR/L, CLT Alpha pager [phone] hysical Therapy - Nell Sanders, SPT - 07/27/2020 2:37 PM ASP NET MVC DEVELOPER Physical Therapy Orthopedic Treatment Note/P.M. Note Date: 07/27/2020 Assessment/Recommendations: The patient was admitted to hospital with diagnosis of fall, status postR MAGGIE on 07-24. Patient in bed upon entry, PT assisted patient to perform R MAGGIE exercises A-AAROM [id number]. Patient transferred supine<>sit stand-by assistance. Transferred sit<>stand FWW minimal assistance of 1. Patient ambulated 300' FWW contact guard assist, trail IV pole. Patient ascended/descended 2 steps B rail contact guard assist. The patient required some assistance with sit to stand more than this morning and she is less sure this afternoon she will be able to manage at home, may benefit from ST SNF for continued therapy prior to returning home vs. home with home health and spouse assist. Acute PT will continue to follow BID M-Sat, daily Monday. Patient states she has a FWW at home already. Procedure/Date: R MAGGIE on 07-24-20 Precautions/Weight Bearing: WBAT R LE, standard hip precautions Subjective: Alert and Oriented. Family/Prosthodontist/Educator present for PT: spouse (see flowsheet) Objective: Gait belt donned for all out of bed activities. Supine to/from sit: stand-by assistance Sit to/from stand: minimal assistance of 1, FWW Sitting Balance: Good Standing Balance: Good Gait: Patient ambulated 300' FWW contact guard assist, trail IV pole. Stairs: Patient ascended/descended 2 steps, B rail, contact guard assist, trial IV pole. Exercises: Patient completed R MAGGIE exercises times 10 repetitions with minimal assistance for active exercises. Good strength with isometric exercises. Other: Patient positioned in chair upon completion of PT session; call light in reach, tray table at side and spouse at side. Pain: (0-10 scale) At rest: 2 With Activity: 8 Education: Patient were educated on exercise progression, transfer techniques, gait and mobility progression including stairs today through explanation. She accepted teaching and verbalized understanding. Plan: Continue with plan of care. Time Treatment Occurred: 14:03 Gait: 0 minutes Exercise: 15 minutes Therapeutic Activity: 10 minutes TOTAL TIMED CODES: 25 minutes TREATMENT TOTAL TIME: 25 Minutes Nell TommyCIPRIANO Alpha pager: [phone] NET MVC DEVELOPER Associated attestation - Fernando Lutz, PT - 07/27/2020 2:43 PM CSTIFernando, PT, have reviewed the attached note and agree with the notation. I was present throughout the PT session. Case Mgmt - Rodolfo Kelley, STUDENT - 07/27/2020 12:01 PM CSTCASE MANAGEMENT / SOCIAL SERVICE TRANSITION PLAN - PROGRESS NOTE PLAN: Awaiting Patient/Family Decision Regarding Plan of Care Awaiting Medical Doctor Recommendations for Transition Will Continue to Follow for Support and Progression Towards Final Transition Plan BARRIERS TO TRANSITION: Discharge Needs to be Determined Medical barriers: -Pain management DOES ACCEPTING FACILITY REQUIRE COVID TESTING BEFORE DISCHARGE: N/A COMMENTS / PATIENT AND FAMILY RESPONSE TO PLAN: Chart review completed. Discussed home health and placement options with patient. Patient stated she "really wants to go home," but is open to placement if necessary. Patient did not have preferences for which home health agency or SNF/SB. Profiled in [facility] and SNF in [place]. IS PATIENT'S ADMISSION ASSOCIATED WITH TIA, ISCHEMIC, OR HEMORRHAGIC STROKE?: No PATIENT / SUBSTITUTE DECISION MAKER GOAL UPON TRANSITION: First Choice: Home Health: Occupational Therapy and Physical Therapy Second Choice: [facility] ANTICIPATED NEEDS UPON TRANSITION: Home Health: Occupational Therapy and Physical Therapy [facility] RESOURCE(S) PROVIDED: nothing needed at this time ANTICIPATED MODE OF TRANSPORT UPON TRANSITION: Family Car ANTICIPATED MODE OF TRANSPORT TO AND FROM FOLLOW UP APPOINTMENTS: As arranged by accepting facility Family [facility] VERIFIED CORRECT PHARMACY IS ENTERED FOR DISCHARGE: No TRANSITION ROUNDING COMPLETED WITH THE FOLLOWING: Patient / family Painter And Decorator Discussed in person SIGNED: Rodolfo Kelley Social Work Cellar Pumper are Planning - Perry Brown RN - 07/27/2020 10:55 AM ASP NET MVC DEVELOPER Problem: RISK FOR FALLS Goal: MOBILITY Description: DEFINITION: Ability to move purposefully in own environment independently with or without assistive device. 1=Severely compromised, 2=Substantially compromised, 3=Moderately compromised,4=Mildly compromised, 5=Not compromised. Outcome: NOC Rating 3 Flowsheets (Taken 07/27/2020 1044) Initial Score: 4 Target Score: 5 Plan of care reviewed with: Patient Patient specific goal for the day: Pt will ambulate in room Patient specific goal for the stay: Pt will return to baseline mobility status Achieve goal for stay: By discharge Patient Progress: Pt ambulated to bathroom, with one assist walker and gait belt, pain was rated at 2/10, care rounds in place Note: Problem: ACUTE PAIN Goal: CLIENT SATISFACTION: PAIN MANAGEMENT Description: DEFINITION: Extent of positive perception of nursing care to relieve pain. 1=Not at all satisfied, 2=Somewhat satisfied, 3=Moderately satisfied, 4=Very satisfied, 5=Completely satisfied. Outcome: NOC Rating 4 Flowsheets (Taken 07/27/2020 1053) Initial Score: 4 Target Score: 5 Plan of care reviewed with: Patient Patient specific goal for the day: Patient vy rate pain as a 5/10 or less on the 0-10 pain scale. Patient specific goal for the stay: Patient will have tolerable pain on PO pain medications. Achieve goal for stay: By discharge Patient Progress: Pt rated pain 2/10 when ambulating to bathroom, pt offered PO meds, pt denied needfor meds, care rounds in place Problem: IMPAIRED URINARY ELIMINATION Goal: URINARY CONTINENCE Description: DEFINITION: Control of elimination of urine from the bladder. 1=Never demonstrated, 2=Rarely demonstrated, 3=Sometimes demonstrated, 4=Often demonstrated, 5=Consistently demonstrated. Outcome: NOC Rating 4 Flowsheets (Taken 07/27/2020 1050) Initial Score: 3 Target Score: 5 Plan of care reviewed with: Patient Patient specific goal for the day: Patient will be able to void independently. Patient specific goal for the stay: Patient will remain free from urinary retention. Achieve goal for stay: By discharge Patient Progress: Pt voided this morning, pt was continent, care rounds in place are Planning - Perry Brown RN - 07/27/2020 10:49 AM ASP NET MVC DEVELOPER Problem: RISK FOR FALLS Goal: MOBILITY Description: DEFINITION: Ability to move purposefully in own environment independently with or without assistive device. 1=Severely compromised, 2=Substantially compromised, 3=Moderately compromised,4=Mildly compromised, 5=Not compromised. Outcome: NOC Rating 3 Flowsheets (Taken 07/27/2020 1044) Initial Score: 4 Target Score: 5 Plan of care reviewed with: Patient Patient specific goal for the day: Pt will ambulate in room Patient specific goal for the stay: Pt will return to baseline mobility status Achieve goal for stay: By discharge Patient Progress: Pt ambulated to bathroom, with one assist walker and gait belt, pain was rated at 2/10, care rounds in place Note: NET MVC DEVELOPER Occupational Therapy - Ayleen Mai OTR/Tamy - 07/27/2020 10:00 AM CST Occupational Therapy Acute Care Progress Note Impression/Recommendations Pt continues to function below reported baseline level of independence. Pt requires assist x 1 for ADLs/transfers. Extensive time spent by OT educating Pt on options for AE and level of assist spouse would need to provide in order for Pt to be safe/successful at home. OT recommends low-intensity vs home with spouse/AE/HHOT. If spouse can provide the level of assist Pt needs with ADLs/transfers/IADLs and they obtain necessary AE, then she could return home with close assist by spouse, AE and HHOT. However, if Pt/spouse feel they cannot manage the level of assist or AE recommendations, then would benefit from low-intensity therapy setting (i.e. ST SNF, TCU, swing bed, etc) when medically stable with continued skilled OT services. Acute OT will continue per POC to maximize functional strength, ac tivity tolerance, cognition, safety, balance, and independence with ADLs, transfers and functional mobility, needed for optimal quality of life. Pt verbalized understanding of discharge recommendations this date and reports she is open to both home with spouse assist/AE/HHOT or low-intensity, "whichever will keep me from coming back here". Pt prefers home of course, but states that if it's not the safest, she would be open to placement. Pt requests that OT come back and educate/communicate OT recs/AE information to her spouse when he comes totown today (also encouraged Pt to share w/spouse, the handouts OT provided and personalized for her needs). Communicated this with RN, Perry, who states he will let OT know when spouse is here for OT to follow-up. Objective Precautions: fall risk, bed/chair alarms, standard hip precautions (Do not flex hip past 90 degrees, Do not adduct hip past midline, Limit hip rotation / do not cross legs), WBAT R LE Cognition: Pt is alert, oriented and agreeable to therapy. Pt able to follow most 1-step simple commands. Not able to state hip precautions; education provided by OT. Poorly follows instruction for extending R LE with sit <> stand transfers to increase ease, control, adhering to hip precautions and pain mgmt. Decreased safety awareness. Pt to benefit from further reinforcement of training/education on safety/technique with ADLs, transfers, and adaptive equipment use to promote optimal safety and function. ADLs: education/training on hip precautions and how to implement into ADLs/transfers. Feeding: independent with items in reach from seated position Grooming: Poor tolerance in standing d/t weakness and fatigue from long walk with PT prior to OT session. Dressing: Upper body: independent Lower body: Total assistance without AE for clothing mgmt over distal LE's while seated and to adhere to hip precautions. Trained with single fold machine operator, sock aid and minimal assistance with return demonstration for mgmt of sweatpants and bilateral gripper socks. Will benefit from continued training/practice with AE. Pt states if she doesn't get AE, that she thinks her spouse could assist her (spouse not present to confirm/deny) Toileting: minimal assistance clothing mgmt, no hygiene cares d/t didn't need to use bathroom during toilet transfer training Bathing: Education/training provided on safety, technique, adaptive equipment options/recommendations and energy conservation techniques. Pt verbalized understanding/agreement. ADL education/comments: Education/training on proper body mechanics to promote safety with ADLs. Education/training on correct technique and safety with ADLs (such as grooming, dressing, toileting and bathing) as well as transfers (including bed, chair, toilet, tub/shower and car transfers). Educationon energy conservation techniques and how to implement into daily routines. Education on sitting forsafety with ADL's/IADL's as warranted (I.e. dressing, bathing, grooming, meal prep, etc). Education on home modifications and safety strategies to reduce fall risk and promote functional safety/independence t/o home setting (i.e. Remove scatter rugs, cords, clear pathways, keep frequently used items be tween hip <> shoulder height to increase ease/safety with item retrieval, etc). Education and training on adaptive equipment options and recommendations. Pt to benefit from further reinforcement of education/training provided this date. Pt verbalized understanding to all education. Answered allPt's questions to their satisfaction. Transfers: Bed: stand-by assistance with increased time/effort with supine to sit with HOB flat, no side railto simulate home set-up. Chair: minimal assistance/contact guard assistance with increased time/effort, instruction on technique (hand, body placement, extending R LE, etc). Toilet: moderate assistance x 1 for safety/balance with sit <> stand and turning to align self with transfer surface. Instruction on safety and technique provided. Tub/shower: Initiated education on technique and AE options Functional mobility: contact guard assistance with FWW for safety/balance during dynamic standing/functional tasks and mobility related ADLs. Pt states "don't make me walk again, I just did so much with the other therapy, I can't do that". OT asked if Pt could ambulate to bathroom and then sit up inchair for ADL training and she was agreeable to this. Comment: Gait belt, non-slip footwear, used for safety with transfers/functional mobility. Pt was left sitting comfortably in bedside chair at end of session; with safety parameters in place. Call light, phone and bedside table placed within reach at end of session. Education provided on using call light and waiting for staff assistance before getting up. Pt verbalizes understanding/agreement. Nurse,Perry and OBSERVER ELECTRICAL PROSPECTING Kelly/Rodolfo, updated on Pt performance in therapy and discharge recommendations at end of session. Pain: 1-2/10 at rest, 2-3/10 with activity. Location: R LE. OT offered to inform RN, pt declined,stating she doesn't need any pain medications. Education Education/Training provided: Education/training on purpose/role of OT, hip precautions, ADL techniques, transfer techniques, safety strategies, adaptive equipment options/use, compensatory strategies, energy conservation techniques, use of call light and importance of calling for assistance, goals, POC, and discharge recommendations. Learners: Patient Readiness: Acceptance, willing, eager Method of Training: Verbal education/explanation, demonstration, explanation with handout Response: Verbalized/demonstrated understanding, will benefit from continued reinforcement, unableto consistently perform teach back/return demonstration yet, Adaptive Equipment Recommendations Adaptive Equipment Recommended: toilet riser with arms vs. toilet riser without arms and toilet safety frame, shower chair, hand held shower, grab bars tub/shower, long handled sponge, non- slip bath mat, single fold machine operator, sock aid, long-handled shoe horn, elastic shoe laces; will continue to assess and make recommendations as appropriate. Adaptive equipment already in place: FWW Plan to obtain adaptive equipment: Patient and/or family to obtain recommended ADL equipment. Adaptive equipment recommendations/handouts provided. Goals Patient/Family Stated Goal for Session: Pt agreeable to therapy services Short Term/Lithographic Etcher Goals: ADL's: Patient will: #1)complete 3 grooming tasks safely in a standing position at the sink with SBA assist (ongoing) #2) Complete all functional transfers safely with SBA and AE prn (ongoing) #3) Complete UE and LE dressing with SBA and AE prn (ongoing) Cognition: Patient will: #4)answer safety/judgement questions with 100% accuracy to determine levelof supervision required upon discharge (ongoing) UE Strengthening/conditioning: Patient will: #5)complete 10-15 minutes of continuous UE activity to increase physical conditioning for ADL and IADL tasks (ongoing) #6)tolerate static and dynamic standing for >5 minutes to increase ability to participate in ADL's (ongoing) Patient continues to progress towards goals. Charges Treatment/Minutes: Today's Evaluation/Treatment Self care/home management: 70 minutes Total Treatment Time: 70 minutes Treatment Session 2/5 Weekly Assessment/Plan (Day 5): Will continue per OT POC while Pt remains in acute care setting. Therapist Alpha Pager Number [phone] NET MVC DEVELOPER Physical Therapy - Nell Sanders SPT - 07/27/2020 9:42 AM CSTPhysical Therapy Orthopedic Treatment Note Date: 07/27/2020 Assessment/Recommendations: The patient was admitted to hospital with diagnosis of fall, status postR MAGGIE on 07-24. Patient in bed upon entry, PT assisted patient to perform R MAGGIE exercises A-AAROM [id number]. Patient transferred supine<>sit stand-by assistance. Transferred sit<>stand FWW contact guard assist. Patient ambulated 300' FWW contact guard assist, trail IV pole. Patient ascended/descended 2 steps FWW and rail contact guard assist. Patient appears physically safe to return homewith spouse assist and home health once medically stable per MD. Acute PT will continue to follow BID M-Sat, daily Monday. Patient states she has a FWW at home already. Procedure/Date: R MAGGIE on 07-24-20 Precautions/Weight Bearing: WBAT R LE, standard hip precautions Subjective: Alert and Oriented. Family/Prosthodontist/Educator present for PT: none (see flowsheet) Objective: Gait belt donned for all out of bed activities. Supine to/from sit: stand-by assistance Sit to/from stand: Contact guard assist FWW Sitting Balance: Good Standing Balance: Good Gait: Patient ambulated 300' FWW contact guard assist, trail IV pole. Stairs: Patient ascended/descended 2 steps, FWW and rail, contact guard assist, trial IV pole. ROM: R hip AAROM: flex 66 degrees, abd 20 degrees Exercises: Patient completed R MAGGIE exercises times 10 repetitions with minimal assistance for active exercises. Good strength with isometric exercises. Other: Patient positioned in bed upon completion of PT session; call light in reach and tray table at side. Pain: (0-10 scale) At rest: 4 With Activity: 6 Education: Patient were educated on exercise progression, transfer techniques, gait and mobility progression including stairs today through explanation. She accepted teaching and verbalized understanding. Plan: Continue with plan of care. Time Treatment Occurred: 9:18 Gait: 0 minutes Exercise: 15 minutes Therapeutic Activity: 10 minutes TOTAL TIMED CODES: 25 minutes TREATMENT TOTAL TIME: 25 Minutes CIPRIANO Espinal Alpha pager: [phone] NET MVC DEVELOPER Associated attestation - Fernando Lutz, PT - 07/27/2020 9:52 AM CSTIFernando, PT, have reviewed the attached note and agree with the notation. I was present throughout the PT session. Care Planning - Suellen Weaver RN - 07/27/2020 1:36 AM ASP NET MVC DEVELOPER Problem: RISK FOR FALLS Goal: FALL PREVENTION BEHAVIOR Description: DEFINITION: Personal or family health care marketing manager actions to minimize risk factors that might precipitate falls in the personal environment. 1=Never demonstrated, 2=Rarely demonstrated, 3=Sometimes demonstrated, 4=Often demonstrated, 5=Consistently demonstrated. 07/27/2020135 by Suellen Weaver RN Outcome: NOC Rating 4 Flowsheets (Taken 07/27/2020135) Initial Score: 3 Target Score: 5 Patient specific goal for the day: Patient will use call light to ask for assistance. Patient specific goal for the stay: Patient will remain free from falls. Achieve goal for stay: By discharge Patient Progress: Patient has been educated on how to use the call light and has been using it appropriately throughout the shift. Patient is alert and oriented x4 has been getting up with 1 and a pivot with a gait belt and walker. The bed is in the lowest position, call light is within reach, bed alarm is on, non-skid footwear and fall risk band are being worn, and hourly rounding is being completed. Will continue to monitor. Problem: ACUTE PAIN Goal: CLIENT SATISFACTION: PAIN MANAGEMENT Description: DEFINITION: Extent of positive perception of nursing care to relieve pain. 1=Not at all satisfied, 2=Somewhat satisfied, 3=Moderately satisfied, 4=Very satisfied, 5=Completely satisfied. Outcome: NOC Rating 3 Flowsheets (Taken 07/27/2020136) Initial Score: 4 Target Score: 4 Plan of care reviewed with: Patient Patient specific goal for the day: Patient vy rate pain as a 5/10 or less on the 0-10 pain scale. Patient specific goal for the stay: Patient will have tolerable pain on PO pain medications. Achieve goal for stay: By discharge Patient Progress: Patient has been rating pain as a 1-2/10 to the right hip throughout the shift. Patient says she really does not have pain, just some soreness. Patient has been getting scheduled tylenol and ice is being applied to the hip. Patient is alert and oriented x4, vital signs are stable, and patient is resting comfortably in bed. Will continue to monitor. Problem: RISK FOR INFECTION Goal: IMMUNE STATUS Description: DEFINITION: Natural and acquired appropriately targeted resistance to internal and external antigens. 1 = Severely compromised, 2 = Substantially compromised, 3 = Moderately compromised, 4 = Mildly compromised, 5 = Not compromised. Outcome: NOC Rating 4 Flowsheets (Taken 07/27/2020 0143) Intial Score: 3 Target Score: 5 Plan of care reviewed with: Patient Patient specific goal for the day: Patient will have temperatures at or below 98.9 F. Patient specific goal for the stay: Patient will remain free from signs and symptoms of an infection. Achieve goal for stay: By discharge Patient Progress: Patient's vital signs have been stable throughout the shift. Patient remains afebrile and WBC is within defined limits. Patient's dressing remains clean, dry, and intact. Will continue to monitor. are Planning - Tania French RN - 07/26/2020 4:41 PM ASP NET MVC DEVELOPER Problem: ACUTE PAIN Goal: CLIENT SATISFACTION: PAIN MANAGEMENT Description: DEFINITION: Extent of positive perception of nursing care to relieve pain. 1=Not at all satisfied, 2=Somewhat satisfied, 3=Moderately satisfied, 4=Very satisfied, 5=Completely satisfied. Outcome: NOC Rating 4 Flowsheets (Taken 07/26/2020 1636) Plan of care reviewed with: Patient Patient specific goal for the day: patient has been c/o of 5/10 pain to R) hip Patient specific goal for the stay: patient will have pain controlled on oral pain medications to work with therapies Achieve goal for stay: By discharge Patient Progress: patient has been c/o of 5/10 pain to R) hip. scheduled tylenol given and ice applied. leg elevated to help minimize swelling. patient has been working with therapies today and has ambulated in hallway x2. patient has been up and chair. plan to discharge to a TCU or swing bed on monday. will continue to monitor Problem: IMPAIRED PHYSICAL MOBILITY Goal: MOBILITY Description: DEFINITION: Ability to move purposefully in own environment independently with or without assistive device. 1=Severely compromised / Total assistance: Performs less than 25% of activity; 2=Substantially compromised / Maximal assistance: Performs 25-49% of activity; 3=Moderately compromised / Moderate assistance: Performs 50-74% of activity; 4=Mildly compromised / Modified independence: Needs assistive device, supervision, minimal contact,or safety is a concern; 5=Not compromised / Complete independence. Outcome: NOC Rating 4 Flowsheets (Taken 07/26/2020 7866) Plan of care reviewed with: Patient Patient specific goal for the day: patient will ambulate in hallway Patient specific goal for the stay: patient will accomplish PT/OT goals Achieve goal for stay: By discharge Patient Progress: patient has been able to ambulate in hallway x2 today and has ambulated in room and gotten up to chair. patient has been getting up with assist of 1. patient tolerates well. Will continue to monitor Problem: RISK FOR INFECTION Goal: IMMUNE STATUS Description: DEFINITION: Natural and acquired appropriately targeted resistance to internal and external antigens. 1 = Severely compromised, 2 = Substantially compromised, 3 = Moderately compromised, 4 = Mildly compromised, 5 = Not compromised. Outcome: NOC Rating 4 Flowsheets (Taken 07/26/2020 9303) Plan of care reviewed with: Patient Patient specific goal for the day: patient will continue to have abx. Patient specific goal for the stay: patient will have no signs or symptoms of infection Achieve goal for stay: By discharge Patient Progress: patient VSS. patient has been afebrile. patients dresssing is C, D & I. incision has no redness or swelling. WBC is WDL. Abx given as ordered by . Will continue to monitor NET MVC DEVELOPER Physical Therapy - Jennyfer Bhatt PT - 07/26/2020 3:18 PM CSTPhysical Therapy Acute Inpatient Treatment Note Assessment/Recommendation: Pt is 74 year old female s/p R MAGGIE 2 days ago. Pt requires Brenton for bed mobility at this time for management of RLE. She requires Brenton for sit to/from stand with fww. Pt ambulated 200ft with fww and CGA. Pt continues to require repetition for hip surgical precautions. Pt will continue to benefit from acute care PT to improve safety, balance, transfers, and ambulation. Recommend low intensity setting at this time. Pt's goal is to return home. PT will continue to follow andupdate recommendations as appropriate. Patient is progressing towards goals. Daily activity recommendations: Ambulate in zepeda 3x/day with fww and assist x1. Subjective: Patient is resting in bed, agreeable to PT session. Reports most of her pain is in distal quad, but is manageable. Objective: Bed Mobility: Supine>sit Brenton to bring R leg over bed, sit>supine independently with extra time and effort. Instructed pt in use of leg risk reduction counselor, but she feels she can do it better herself. Transfers: Sit to stand with Brenton, initial LOB, requires 2 attempts to stand. Stand>sit with cga, cues to controlling descent to limit plopping. Gait: Ambulated 200' with fww and CGA. Pt has steady gait with fww, step to pattern, cues to keep fww close to her. Therapeutic Exercises: Instructed pt in HEP to include ankle pumps, quad/glut/hamstring sets, heel slides, SAQs, hip abduction, SLR. Pt able to complete each exercise independently with extra time andeffort. Education: Pt was educated on standard hip precautions and will need reinforcement. Plan: Continue plan of care. Today's Treatment: Gait Trainin minutes Therapeutic Exercise: 10 minutes Therapeutic Activity: 0 minutes TOTAL TIMED CODES: 25 minutes TREATMENT TOTAL TIME: 25 minutes Jennyfer Bhatt PT, DPT Pager: [phone] are Planning - Suellen Weaver RN - 07/26/2020 12:59 AM ASP NET MVC DEVELOPER Problem: RISK FOR FALLS Goal: FALL PREVENTION BEHAVIOR Description: DEFINITION: Personal or family health care marketing manager actions to minimize risk factors that might precipitate falls in the personal environment. 1=Never demonstrated, 2=Rarely demonstrated, 3=Sometimes demonstrated, 4=Often demonstrated, 5=Consistently demonstrated. Outcome: NOC Rating 3 Flowsheets (Taken 07/26/2020 0055) Initial Score: 3 Target Score: 5 Plan of care reviewed with: Patient Patient specific goal for the day: Patient will use call light to ask for assistance. Patient specific goal for the stay: Patient will remain free from falls. Achieve goal for stay: By discharge Patient Progress: Patient has been educated on how to use the call light and has been using it appropriately throughout the shift. Patient is alert and oriented x4 and has been getting up with 2 and a pivot. The bed is in the lowest position, call light is within reach, bed alarm is on, non-skid footwear and fall risk band are being worn, and hourly rounding is being completed. Will continue to monitor. Problem: ACUTE PAIN Goal: CLIENT SATISFACTION: PAIN MANAGEMENT Description: DEFINITION: Extent of positive perception of nursing care to relieve pain. 1=Not at all satisfied, 2=Somewhat satisfied, 3=Moderately satisfied, 4=Very satisfied, 5=Completely satisfied. Outcome: NOC Rating 4 Flowsheets (Taken 07/26/2020 005) Initial Score: 4 Target Score: 4 Plan of care reviewed with: Patient Patient specific goal for the day: Patient will rate pain as a 6/10 or less on the 0-10 pain scale. Patient specific goal for the stay: Patient will have tolerale pain on PO pain medications. Achieve goal for stay: By discharge Patient Progress: Patient has been complaining of little to no pain throughout the shift. Patient has been getting scheduled tylenol, but has not needed anything else for pain throughout the shift. Patient has been getting up with 2 a pivot and has been tolerating it well. Patient is alert and oriented x4, vital signs are stable, and patient is resting comfortably in bed. Will continue to monitor. Problem: RISK FOR INFECTION Goal: IMMUNE STATUS Description: DEFINITION: Natural and acquired appropriately targeted resistance to internal and external antigens. 1 = Severely compromised, 2 = Substantially compromised, 3 = Moderately compromised, 4 = Mildly compromised, 5 = Not compromised. Outcome: NOC Rating 4 Flowsheets (Taken 07/26/2020 0106) Intial Score: 3 Target Score: 5 Plan of care reviewed with: Patient Patient specific goal for the day: Patient will have temperatures at or below 98.9 F. Patient specific goal for the stay: Patient will remain free from signs and symptoms of an infection. Achieve goal for stay: By discharge Patient Progress: Patient's vital signs have been stable throughout the shift. Patient had a low grade fever during previous shift, but temperatures have been within defined limits. WBC is also within defined limits. Patient's dressing remains clean, dry, and intact. Will continue to monitor. are Planning - Tania French RN - 07/25/2020 6:12 PM ASP NET MVC DEVELOPER Problem: IMPAIRED PHYSICAL MOBILITY Goal: MOBILITY Description: DEFINITION: Ability to move purposefully in own environment independently with or without assistive device. 1=Severely compromised / Total assistance: Performs less than 25% of activity; 2=Substantially compromised / Maximal assistance: Performs 25-49% of activity; 3=Moderately compromised / Moderate assistance: Performs 50-74% of activity; 4=Mildly compromised / Modified independence: Needs assistive device, supervision, minimal contact,or safety is a concern; 5=Not compromised / Complete independence. Outcome: NOC Rating 3 Flowsheets (Taken 07/25/20201806) Plan of care reviewed with: Patient Patient specific goal for the day: patient will tolerate getting up to chair x 3 today Patient specific goal for the stay: patient will accomplish PT/OT goals Achieve goal for stay: By discharge Patient Progress: patient has been tolerating getting up today. patient has bong getting up with 1-2 and a pivot and tolerates well. patient needs education on proper body mechanics when getting up. Will continue to monitor Problem: ACUTE PAIN Goal: CLIENT SATISFACTION: PAIN MANAGEMENT Description: DEFINITION: Extent of positive perception of nursing care to relieve pain. 1=Not at all satisfied, 2=Somewhat satisfied, 3=Moderately satisfied, 4=Very satisfied, 5=Completely satisfied. 07/25/2020 1807 by Tania French, RN Outcome: NOC Rating 4 Flowsheets (Taken 07/25/2020 180) Plan of care reviewed with: Patient Patient specific goal for the day: patient will have pain controlled to be able to work with therapies Patient specific goal for the stay: patient will return to baseline Achieve goal for stay: By discharge Patient Progress: patient has had little to no c/o of pain. ptaient has been tolerating therpays. patient has gotten up to chair today and tolerated well. patient is getting up to use commode chair. Patient recieved scheduled tylenol for pain relief. Will continue to monitor 07/25/2020 1604 by Tania French, RN Outcome: NOC Rating 4 Flowsheets (Taken 07/25/2020 1550) Plan of care reviewed with: Patient Patient specific goal for the day: patient will have pain controlled to be able to work with therapies Patient specific goal for the stay: patient will return to baseline Achieve goal for stay: By discharge Patient Progress: patient has little to no c/o of pain Problem: RISK FOR INFECTION Goal: IMMUNE STATUS Description: DEFINITION: Natural and acquired appropriately targeted resistance to internal and external antigens. 1 = Severely compromised, 2 = Substantially compromised, 3 = Moderately compromised, 4 = Mildly compromised, 5 = Not compromised. Outcome: NOC Rating 4 Flowsheets (Taken 07/25/2020 1807) Plan of care reviewed with: Patient Patient specific goal for the day: patient will continue to have abx. Patient specific goal for the stay: patient will have no signs or symptoms of abx Achieve goal for stay: By discharge Patient Progress: patients vitals are stable. patient has low grade temp of 99.3 oral. Patients dressing is C,D,& I. WBC WDL. will continue to monitor NET MVC DEVELOPER Physical Therapy - Elyse Yost PT - 07/25/2020 3:43 PM CST Physical Therapy Acute Inpatient Initial Evaluation Assessment/Recommendations: Pt is a pleasant 74 y/o female s/p 1 day R MAGGIE after incurring fall on 08/02/2020 after slipping on the ice at home. She requires mod (A) x 1 for [id number] transfers along with significant cuing for optimal technique to maintain safety. She requires min (A) x 1 for sit-to- supine transfers only for negotiating RLE secondary to recent MAGGIE. Pt does require repetition for hip surgical precautions and is slightly impulsive with transfers secondary to wanting to be mobile and return home. Pt will continue to benefit from acute care PT to improve safety, balance, transfers and ambulation. Recommend low setting at this time, possibly home with assistance and HHPT depending on pt functional progress. Daily activity prescription: Up to chair 2-3x/day. Diagnosis: ICD-10-CM 1. Status post total replacement of right hip Z96.641 vitamin D3, cholecalciferol, 25 mcg (1000 unit) tablet calcium citrate-vitamin D (CITRACAL + VIT D) 315 mg-250 unit tablet Weight bearing status - as tolerated PHYSICAL THERAPY EVALUATION AND TREATMENT 2. Closed displaced fracture of right femoral neck (HCC) S72.001A TISSUE EXAM vitamin D3, cholecalciferol, 25 mcg (1000 unit) tablet calcium citrate-vitamin D (CITRACAL + VIT D) 315 mg-250 unit tablet Weight bearing status - as tolerated PHYSICAL THERAPY EVALUATION AND TREATMENT 3. Pathological fracture of other site due to osteoporosis, unspecified osteoporosis type, initial encounter M80.00XA vitamin D3, cholecalciferol, 25 mcg (1000 unit) tablet calcium citrate-vitamin D (CITRACAL + VIT D) 315 mg-250 unit tablet Prescription: Eval and Treat Admit Date: 07/23/2020 Physical therapy initiated: 07/25/2020 Pertinent Medical / Surgical History: Patient has no past medical history on file. Patient has no past surgical history on file. Current status: Patient is 1 day(s) status-post R MAGGIE after slipping on ice and falling at home. Precautions: Standard hip precautions: No flexion past 90 degrees, no adduction past midline, no rotation Weight-bearing status: WBAT for RLE Subjective: Social History: Patient lives: with Home environment: House, one level Steps: 1 to enter house, no railing Employment: retired Prior Level of Function: Activities of Daily Living: Independent Mobility: Independent History of falls: Yes 07/23/2020, slipped on ice incurring R hip fracture Home O2: none Adaptive equipment available: FWW Patient Concerns: Does not want to go into a residential. Patient/Family Goals: Wants to be able to go home. Objective: Patient upright in chair with feet supported upon PT arrival. Pt agreed to PT evaluation. Cognition: AxO x 4 Pain at rest: 2-3/10 Pain with activity: 8-9/10 during, 5/10 post-activity Posture: Fair Observation: Pt is in NAD. Range of Motion: LLE is WFL. RLE WFL within hip precautions. Refer to Occupational Therapy report for upper extremity range of motion. Strength: LLE is WFL. R knee and foot WFL. R hip NT secondary to recent surgery. Refer to Occupational Therapy report for upper extremity strength testing. Sensation: Grossly intact bilaterally. Bed Mobility: Supine to Sit: n/a. Pt in chair upon PT arrival. Sit to Supine: Min (A) for negotiation of RLE, otherwise SBA. Transfers: Sit to/from Stand: Mod (A) x 1 with FWW. Balance: Static Sitting Balance: Good Dynamic Sitting Balance: Not assessed Static Standing with FWW Assistive Device: Fair-pt required CGA and cues for upright posture secondary to anterior trunk lean and for optimal hand placement on FWW. Gait: Pt able to take a few steps/pivot transfer from chair to bed requiring min (A) x 1 for safetyand optimal step pattern. Stairs: Not assessed Education: Patient was educated on role of PT, hip surgical precautions, recommendations/POC today through explanation and demonstration. They accepted teaching and verbalized understanding and will need reinforcement. Therapeutic Exercises: n/a Today's Treatment Evaluation: Completed Gait trainin minutes Therapeutic exercise: 0 minutes Therapeutic activity: 10 minutes TOTAL TIME-CODED MINUTES: 10 minutes TOTAL TREATMENT TIME: 40 minutes Treatment provided: Pt education regarding hip surgical precautions requiring repetition. Will need reinforcement for precautions and optimal transfer technique. Goals to be achieved by discharge. Patient will be aware of equipment recommendations as indicated in note to allow for safe mobility. Patient will transfer sit to/from supine with SBA assistance. Patient will transfer from sit to/from stand with SBA assistance and equipment as needed to progressto safe household mobility. Patient will be able to ambulate 25 feet using FWW with SBA assistance to progress to safe functional mobility in the home. Patient will be able to negotiate 1 stairs without rail in safest pattern with SBA assistance to progress to safe functional mobility in the home. Patient will demonstrate adequate awareness of fall prevention tactics to reduce risk of falling. Plan: Will continue M-Sat BID and 1x on Sun. Physical Therapy Services: balance training bed mobility training gait training home exercise instruction therapeutic activity therapeutic exercise transfer training Elyse Yost PT Pager #[phone] NET MVC DEVELOPER Occupational Therapy - Becky Valdez OTR/Tamy - 07/25/2020 3:27 PM CST Occupational Therapy Acute Care Evaluation Impression/Recommendations Recommend short-term low intensity stay (I.e. Swing bed, TCU, SNF) at this time upon medical stability. If patient progresses or she declines low intensity, recommend initial 24/7 assist for all ADLs/IADLs and HH OT/Home Safety evaluation. Will update discharge recommendations as appropriate. Patient rad coon presents with decreased functional mobility, decreased activity tolerance/strength, and decreased independence in ADLs/IADLs. Patient functions her independent baseline. Requires assist of 1 to complete ADLs and functional transfers at this time. Declined completing further functional transfers on this date, due to fatigue and recently getting back to bed from a session with physical therapy. Acute OT will continue to follow patient per POC to optimize functional performance in all ADLs/IADLs prior to discharge. Admitting Diagnosis: ICD-10-CM 1. Status post total replacement of right hip Z96.641 vitamin D3, cholecalciferol, 25 mcg (1000 unit) tablet calcium citrate-vitamin D (CITRACAL + VIT D) 315 mg-250 unit tablet Weight bearing status - as tolerated PHYSICAL THERAPY EVALUATION AND TREATMENT 2. Closed displaced fracture of right femoral neck (HCC) S72.001A TISSUE EXAM vitamin D3, cholecalciferol, 25 mcg (1000 unit) tablet calcium citrate-vitamin D (CITRACAL + VIT D) 315 mg-250 unit tablet Weight bearing status - as tolerated PHYSICAL THERAPY EVALUATION AND TREATMENT 3. Pathological fracture of other site due to osteoporosis, unspecified osteoporosis type, initial encounter M80.00XA vitamin D3, cholecalciferol, 25 mcg (1000 unit) tablet calcium citrate-vitamin D (CITRACAL + VIT D) 315 mg-250 unit tablet History of Present Illness: Refer to H&P for details Past Medical History: History reviewed. No pertinent past medical history. Activity Level: Activity as tolerated Precautions: WBAT R LE, Fall risk, standard/MAGGIE R hip precautions (Do not flex R hip past 90 degrees, do not adduct hip past midline, and limit internal hip rotation/crossing legs) Infection Control: Standard Patient History Social/Home Environment: Patient lives: lives with their spouse House: house with 1 step to enter. Home Environment: Bed/Bath on main: Yes Bath Setup: Combo with curtain Employment: retired Prior Level of Function Independent with: dressing, bathing, medication management, cooking, cleaning, laundry, driving, groceries and money management Assistance needed with: lawn care from spouse Adaptive Equipment Available: front-wheeled walker, however, patient ambulates and completes functional mobility with no AD Present for Eval: Patient Objective Activities of Daily Living: Feeding: TBA Grooming: TBA Upper Extremity Dressing: TBA Lower Extremity Dressing: Provided education on using AE to assist with lower- body dressing and maintain R MAGGIE precautions. Patient verbalized understanding and demonstrated the ability to doff B socks with the use of the single fold machine operator and CGA while seated EOB. Donned B socks with the use of the sock aid and set-up assist. Patient reported that she prefers her spouse to provide assistance with lower-body dressing at home, instead of using the AE. Bathing: TBA-Provided education/training on using a shower chair during bathing to enhance patientsafety and maintain R MAGGIE precautions. Patient verbalized understanding and indicated interest in searching for the equipment independently. Toileting: TBA Homemaking: TBA Comments: Provided patient with education on maintaining R MAGGIE precautions during ADLs and functional mobility, including: Do not flex R hip past 90 degrees, do not adduct hip past midline, and limitinternal hip rotation/crossing legs. In addition, provided education/training to put a pillow between the patient's legs when she is in the bed to prevent adduction/crossing of the legs. Patient verbalized understanding. Transfers: Bed: Supine<>sit with Min-Mod x 1 and use of the bed rail with the HOB slightly elevated. Tolerated sitting on the edge of the bed for ~ 5 minutes with SBA. Declined completing further functional transfers due to fatigue and recently getting back to bed from a session with physical therapy. Chair: TBA Toilet: TBA Tub/Shower: TBA Comments: Gripper socks were donned while sitting EOB to increase patient safety and decrease fallrisk. Patient positioned comfortably in bed at end of session with call light and tray table within reach. Educated patient on use of call light and need of assistance from staff prior to getting up toreduce fall risk/increase safety. Patient verbalized understanding. Bed alarm was activated at the end of the session. Pain: Pain at rest: 3/10 Pain during activity: 8/10 Location: R hip/LE Upper Extremity Function: Range of Motion: Right:within functional limits Left: within functional limits Strength: Right: within functional limits Left: within functional limits Endurance: limited due to fatigue and pain in R hip with mobility/activity Coordination: intact Sensation: intact Edema: no Dominant Hand: Did not formally assess Orientation: Cognition: Alert and Ox4. Demonstrated ability to follow simple commands independently. Attention: intact Following Directions: intact Safety Awareness: intact Visual/Perception: Intact Glasses: Yes-Readers Education Education/Training provided: Role of OT, plan of care, discharge, AE, transfers, MAGGIE precautions Learners: Patient Readiness: Acceptance Method of Training: Verbal education, demonstration Response: Verbalized/demonstrated understanding, will benefit from continued reinforcement Adaptive Equipment Recommendations Adaptive Equipment Recommended: toilet safety frame, shower chair, single fold machine operator and sock aid Adaptive Equipment Available: front-wheeled walker Plan to obtain adaptive equipment: To further assess. Assessment/Plan Assessment: Patient demonstrates decreased physical conditioning, decreased independence with ADL/IADL tasks and decreased independence with functional mobility Patient showing a decrease in ADL/transfer performance and will benefit from continued OT. Plan: Patient to be seen 3-5 times a week to work toward above goals Treatment plan will consist of Monday thru Monday sessions Goals Patient/Family Stated Goal for Session: No goal stated, however, patient was agreeable to therapy Short Term Goals: ADL's: Patient will: #1)complete 3 grooming tasks safely in a standing position at the sink with SBA assist #2) Complete all functional transfers safely with SBA and AE prn #3) Complete UE and LE dressing with SBA and AE prn Cognition: Patient will: #4)answer safety/judgement questions with 100% accuracy to determine levelof supervision required upon discharge UE Strengthening/conditioning: Patient will: #5)complete 10-15 minutes of continuous UE activity to increase physical conditioning for ADL and IADL tasks #6)tolerate static and dynamic standing for >5 minutes to increase ability to participate in ADL's Treatment Provided Education on Role of OT and discharge recommendations provided. Please see note above for further details. Acute OT will continue to address safety awareness, balance, strength, endurance/activity tolerance, functional mobility, and ADLs per POC. Charges Treatment/Minutes: Today's Evaluation/Treatment Evaluation Self care/home management: 15 minutes Total for time-based codes: 15 minutes Total treatment time: 27 minutes Evaluation Complexity PMH/Comorbidities that affect Occupational Performance: Please refer to patient's PMH Occupational Profile/Medical and Therapy History: LOW - Brief history relating to presenting problem Patient Assessment: LOW - 1-3 performance deficits relating to physical, cognitive, psychosocial limitations/restrictions Clinical Decision Making: LOW - Low complexity, limited amount of treatment options, no assessment modification, no comorbidities Evaluation Complexity: Low Therapist Alpha Pager Number: [phone] are Planning - Annia Sotelo RN - 07/25/2020 2:05 AM ASP NET MVC DEVELOPER Problem: RISK FOR FALLS Goal: FALL PREVENTION BEHAVIOR Description: DEFINITION: Personal or family health care marketing manager actions to minimize risk factors that might precipitate falls in the personal environment. 1=Never demonstrated, 2=Rarely demonstrated, 3=Sometimes demonstrated, 4=Often demonstrated, 5=Consistently demonstrated. Flowsheets (Taken 07/25/2020154) Initial Score: 3 Target Score: 5 Plan of care reviewed with: Patient Patient specific goal for the day: Patient will use call light to ask for assistance. Patient specific goal for the stay: Patient will remain free from falls. Achieve goal for stay: By discharge Patient Progress: Pt alert and orientated X4. Pt educated on fall prevention measures. Call light with in reach, abductor pillow in place, gripper socks on, fall band applied. Pt corroporated and understanding with asking for help when getting up. Willl continue to monitor. Problem: ACUTE PAIN Goal: CLIENT SATISFACTION: PAIN MANAGEMENT Description: DEFINITION: Extent of positive perception of nursing care to relieve pain. 1=Not at all satisfied, 2=Somewhat satisfied, 3=Moderately satisfied, 4=Very satisfied, 5=Completely satisfied. Flowsheets (Taken 07/25/2020154) Initial Score: 4 Target Score: 4 Plan of care reviewed with: Patient Patient specific goal for the day: To maintain pain at tolerable level with repositioning and prn/scheduled medications. Patient specific goal for the stay: patient will return to baseline Achieve goal for stay: By discharge Patient Progress: Pt complains of very little pain. Q2 turning, offered scheduled tylenol for pain but declined. Will continue to monitor. Problem: RISK FOR INFECTION Goal: IMMUNE STATUS Description: DEFINITION: Natural and acquired appropriately targeted resistance to internal and external antigens. 1 = Severely compromised, 2 = Substantially compromised, 3 = Moderately compromised, 4 = Mildly compromised, 5 = Not compromised. Flowsheets (Taken 07/25/2020154) Intial Score: 3 Target Score: 5 Plan of care reviewed with: Patient Patient specific goal for the day: Pt will take all scheduled antibiotics. Patient specific goal for the stay: Pt will not have an increase in WBC during stay. Achieve goal for stay: By discharge Patient Progress: Pt vitals are stable, with not fevers or tachycardia. WBC within normal limits. Will continue to monitor. are Planning - Suellen Weaver RN - 07/24/2020 10:21 PM ASP NET MVC DEVELOPER Problem: RISK FOR FALLS Goal: FALL PREVENTION BEHAVIOR Description: DEFINITION: Personal or family health care marketing manager actions to minimize risk factors that might precipitate falls in the personal environment. 1=Never demonstrated, 2=Rarely demonstrated, 3=Sometimes demonstrated, 4=Often demonstrated, 5=Consistently demonstrated. Outcome: NOC Rating 3 Flowsheets (Taken 07/24/20202217) Initial Score: 3 Target Score: 5 Plan of care reviewed with: Patient Patient specific goal for the day: Patient will use call light to ask for assistance. Patient specific goal for the stay: Patient will remain free from falls. Achieve goal for stay: By discharge Patient Progress: Patient has been educated on how to use the call light and has been using it appropriately throughout the shift. Patient is alert and oriented x4 and has dangled after right hemiarthroplasty. The bed is in the lowest position, call light is within reach, bed alarm is on, non-skid footwear and fall risk band are being worn, and hourly rounding is being completed. Will continue to monitor. Problem: IMPAIRED PHYSICAL MOBILITY Goal: MOBILITY Description: DEFINITION: Ability to move purposefully in own environment independently with or without assistive device. 1=Severely compromised / Total assistance: Performs less than 25% of activity; 2=Substantially compromised / Maximal assistance: Performs 25-49% of activity; 3=Moderately compromised / Moderate assistance: Performs 50-74% of activity; 4=Mildly compromised / Modified independence: Needs assistive device, supervision, minimal contact,or safety is a concern; 5=Not compromised / Complete independence. Outcome: NOC Rating 3 Flowsheets (Taken 07/24/20202220) Initial Score: 3 Target Score: 5 Plan of care reviewed with: Patient Patient specific goal for the day: Patient will tolerate turning and repositioning every 2 hours. Patient specific goal for the stay: Patient will return to baseline mobility. Achieve goal for stay: By discharge Patient Progress: Patient has been tolerating turning and repositioning every 2 hours throughout theshift. Patient has limited mobility due to right hip fracture. Patient is continent of both bowel and bladder so moisture is managed. The head of the bed is elevated to 30 degrees or less, heels are elevated, and a daily skin check has been completed. Will continue to monitor. Problem: IMPAIRED URINARY ELIMINATION Goal: URINARY CONTINENCE Description: DEFINITION: Control of elimination of urine from the bladder. 1=Never demonstrated, 2=Rarely demonstrated, 3=Sometimes demonstrated, 4=Often demonstrated, 5=Consistently demonstrated. Outcome: NOC Rating 3 Flowsheets (Taken 07/24/20202225) Initial Score: 3 Target Score: 5 Plan of care reviewed with: Patient Patient specific goal for the day: Patient will be able to void independently. Patient specific goal for the stay: Patient will remain free from urinary retention. Achieve goal for stay: By discharge Patient Progress: Patient has not been able to void independently after surgery this afternoon. Patient has been bladder scanned 8 hours post-op and had 178 mL in bladder. Oral intake is being encouraged and patient is obtaining IV fluids. Will continue to monitor. NET MVC DEVELOPER Clinical Team - Tania French RN - 07/24/2020 6:00 PM ASP NET MVC DEVELOPER DAILY SKIN CHECK BEHIND EARS- WDL ELBOWS- Bilateral blanchable redness ISCHIUM- WDL COCCYX- WDL (small excoriation) HEELS- Bilateral blanchable redness ANY OTHER AREAS OF NOTABLE CONCERN- incision to R) hip-surgery REMOVE ALL MEDICAL DEVICES (if medically safe to do so) AND PERFORM SKIN CHECK BENEATH THOSE AREAS THAT THE DEVICE MAKES CONTACT WITH SKIN, evaluate rotating site/move device- Skin check completed with: Kamini Lyn INTERVENTIONS ALREADY IN PLACE: INTERVENTIONS ADDED TODAY: WOCN consulted? YES/NO/NA: N/A are Planning - Tania French RN - 07/24/2020 5:53 PM ASP NET MVC DEVELOPER Problem: RISK FOR FALLS Goal: FALL PREVENTION BEHAVIOR Description: DEFINITION: Personal or family health care marketing manager actions to minimize risk factors that might precipitate falls in the personal environment. 1=Never demonstrated, 2=Rarely demonstrated, 3=Sometimes demonstrated, 4=Often demonstrated, 5=Consistently demonstrated. 07/24/20201751 by Tania French RN Flowsheets (Taken 07/24/20201751) Plan of care reviewed with: Patient Patient specific goal for the day: patient will use call light approprately Patient specific goal for the stay: patient will have no falls during this hospital stay Achieve goal for stay: By discharge Patient Progress: patient has been using call light appropriately. patient is alert and orientated x4 . patient is a turn q2 hrs. patient went down for a total hip arthroplasty. patient dangled at bedside and tolerated well. Will continue to monitor 07/24/20201747 by Tania French RN Flowsheets (Taken 07/24/20201747) Plan of care reviewed with: Patient Patient specific goal for the day: patient will use call light approprately Patient specific goal for the stay: patient will have no falls during this hospital stay Achieve goal for stay: By discharge Patient Progress: patient has been using call light appropriately. patient is alert and orientated x4 . patient is a turn q2 hrs. patient went down for a total hip arthroplasty. patient dangled at bedside and tolerated well. Will continue to monitor Problem: ACUTE PAIN Goal: CLIENT SATISFACTION: PAIN MANAGEMENT Description: DEFINITION: Extent of positive perception of nursing care to relieve pain. 1=Not at all satisfied, 2=Somewhat satisfied, 3=Moderately satisfied, 4=Very satisfied, 5=Completely satisfied. 07/24/20201751 by Tania French RN Flowsheets (Taken 07/24/20201751) Initial Score: 4 Plan of care reviewed with: Patient Patient specific goal for the day: To maintain pain at tolerable level with repositioning and prn/scheduled medications. Patient specific goal for the stay: patient will return to baseline Achieve goal for stay: By discharge Patient Progress: patient has been having little to no pain to R) hip. patient went down to OR for hip hemiarthroplasy. dressing is in place. ice offered as needed. will continue to monitor 07/24/20201747 by Tania French RN Flowsheets (Taken 07/24/20201747) Initial Score: 4 Plan of care reviewed with: Patient Patient specific goal for the day: To maintain pain at tolerable level with repositioning and prn/scheduled medications. Patient specific goal for the stay: patient will return to baseline Achieve goal for stay: By discharge Patient Progress: patient has been having little to no pain to R) hip. patient went down to OR for hip hemiarthroplasy. dressing is in place. ice offered as needed. will continue to monitor Problem: IMPAIRED PHYSICAL MOBILITY Goal: MOBILITY Description: DEFINITION: Ability to move purposefully in own environment independently with or without assistive device. 1=Severely compromised / Total assistance: Performs less than 25% of activity; 2=Substantially compromised / Maximal assistance: Performs 25-49% of activity; 3=Moderately compromised / Moderate assistance: Performs 50-74% of activity; 4=Mildly compromised / Modified independence: Needs assistive device, supervision, minimal contact,or safety is a concern; 5=Not compromised / Complete independence. Flowsheets (Taken 07/24/2020 4625) Plan of care reviewed with: Patient Patient specific goal for the day: patient will tolerate dangle Patient specific goal for the stay: patient will return to baseline mobility Achieve goal for stay: By discharge Problem: RISK FOR INFECTION Goal: IMMUNE STATUS Description: DEFINITION: Natural and acquired appropriately targeted resistance to internal and external antigens. 1 = Severely compromised, 2 = Substantially compromised, 3 = Moderately compromised, 4 = Mildly compromised, 5 = Not compromised. Flowsheets (Taken 07/24/2020 0576) Intial Score: 3 Target Score: 4 Plan of care reviewed with: Patient Patient specific goal for the day: patient will have dressing stay C, D and I Patient specific goal for the stay: patient will have no signs or symptoms of infection Achieve goal for stay: By discharge Patient Progress: patient WBC is WDL. patient went and had a R) hip hemiarthroplast. dressing is C, D & I. temp is WDL. Will continue to monitor NET MVC DEVELOPER Nutrition Team - Kimberly Thibodeaux RD - 07/24/2020 2:01 PM CST Nutrition Note Patient admitted on 07/23/2020 5:30 PM for Principal Problem: Closed displaced fracture of right femoral neck (HCC) Active Problems: Femoral neck fracture (HCC) Per EMR Malnutrition Screening Tool completed at admission, pt does not meet screening criteria for an increased potential for developing malnutrition with an MST Score of 0 (Score > 2 considered positive for nutrition risk). Nutrition screening revealed no difficulty eating or significant unintentional weight loss prior to admission. Past medical history noted and is not currently placing pt atincreased nutrition risk. Height: 175.3 cm (5' 9") Weight: 71.8 kg (158 lb 4.6 oz) BMI: Body mass index is 23.38 kg/m. Nutrition (From admission, onward) Start Ordered 07/24/20 1350 ADVANCE DIET TOLERATED ONCE 07/24/20 1346 07/24/20 1350 Diet - Regular Now Question: Standard Diets Answer: Regular 07/24/20 1346 07/24/[address] [facility]; Other (Specify in comments) (ENSURE ENLIVE)BID BID Comments: Give supplement cold with medications twice a day. The supplement is an intervention for identified nutrition risk factors. * Do not give if patient is NPO (unless the orders specify NPO with supplement) or if medication should not be given with food. Question Answer Comment Location [facility] Dietary Supplement Other (Specify in comments) ENSURE ENLIVE 07/23/20 1908 Pt is currently on a regular diet and ordered lunch after procedure this afternoon. Pt said her appetite has always been good and reported not losing wt for 3 years. Breakfast: oatmeal or cereal with milk Lunch: Homemade soups, macaroni with beef, meat and potatoes Dinner: cereal, sandwiches Snacks: cookies and crackers Plan to monitor po intake adequacy during admission. If provider feels pt has nutritional concerns,please send Inpatient Dietitian consult with indication for referral. Kimberly Thibodeaux RD Alpha Pager: [phone] are Planning - Renetta Power RN - 07/24/2020 1:24 PM ASP NET MVC DEVELOPER Problem: RISK FOR INJURY Goal: SURGICAL RECOVERY: IMMEDIATE POST-OPERATIVE Description: DEFINITION: Extent to which an individual achieves physiological baseline function following major surgery requiring anesthesia. 1=Severe deviation from normal range, 2=Substantial deviation from normal range, 3=Moderate deviation from normal range, 4=Mild deviation from normal range, 5=No deviation from normal range. 07/24/2020 1324 by Renetta Power RN Outcome: Outcome acceptable for discharge 07/24/2020 1302 by Renetta Power RN Flowsheets (Taken 07/24/2020 1302) Initial Score: 3 Target Score: 4 NET MVC DEVELOPER Physical Therapy - Fernando Lutz, PT - 07/24/2020 1:14 PM CSTPatient down to OR for R MAGGIE, therapy will hold today and initiate evaluation 07-25-20. Fernando Lutz, PT Alpha Pager [phone] are Planning - Renetta Power RN - 07/24/2020 1:02 PM ASP NET MVC DEVELOPER Problem: RISK FOR INJURY Goal: SURGICAL RECOVERY: IMMEDIATE POST-OPERATIVE Description: DEFINITION: Extent to which an individual achieves physiological baseline function following major surgery requiring anesthesia. 1=Severe deviation from normal range, 2=Substantial deviation from normal range, 3=Moderate deviation from normal range, 4=Mild deviation from normal range, 5=No deviation from normal range. Flowsheets (Taken 07/24/2020 1302) Initial Score: 3 Target Score: 4 NET MVC DEVELOPER PostOp Progress Note - Fernando Villarreal MD - 07/24/2020 12:44 PM CST Immediate Post-Operative / Post Procedure Progress Note Att. Phys: Debbie Bar DO Pt. Type: Inpatient Operative Date: 07/24/2020 Surgeon: Surgeon(s) and Role: * Fernando Villarreal MD - Primary * Bert Rojas MD - Resident - Assisting Watch And Clock Maker And Repairer: Donation Worker : Cyrus Cervantes RN Scrub Person : Laith Yanez, ASP NET MVC DEVELOPER; Jorge Wing ST Zigzag Tunnel Elastic Operator: Nery Méndez, ORIENTAL RUG REPAIRER-SHOE LAY OUT PLANNER; Steffanie Perea PA X-Ray Tech: Ayleen Castro, RT(R); [place], Abraham, MIXING MACHINE OPERATOR The skilled assistance of my switchboard operator assistant (ZOHRA) was necessary for the following activities: positioning of the patient, assistance with the procedure, holding retractors, assistance with holdingreduction, assistance with wound closure, and dressing application. Bert Rojas DO PGY-1 Ortho resident was present and assisted with the surgery. Pre-Operative Diagnosis: Pre-Op Diagnosis Codes: * Closed displaced fracture of right femoral neck (HCC) [S72.001A] Post-Operative Diagnosis: same Anesthesia Type: spinal Operative Procedure: Procedure(s): RIGHT TOTAL HIP ARTHROPLASTY - Wound Class: Clean ID Type Source Tests Collected by Time A : Right Femural head Bone Hip TISSUE EXAM Fernando Villarreal MD 07/24/2020 1130 no implants used for procedure Fluids Given: See Anesthesia Record Urine Output: See Anesthesia Record Estimated Blood Loss: 150 mL Drains: none Findings: none Complications: none Postoperative Condition: stable ase [facility] - Kelly Juárez LSW - 07/24/2020 10:18 AM CSTCASE MANAGEMENT / SOCIAL SERVICE TRANSITION PLAN - INITIAL ASSESSMENT TRANSITION PLAN: Awaiting Medical Doctor Recommendations for Transition Will Continue to Follow for Support and Progression Towards Final Transition Plan BARRIERS TO TRANSITION: Awaiting Therapy Recommendations Discharge Needs to be Determined Medical barriers: post-op cares, pain management COMMENTS / PATIENT AND FAMILY RESPONSE TO PLAN: Met with the patient, introduced CM role and discussed discharge goal. Patient is independent with ADLs/IADLs, transportation and manages own medication and finances. Patient does not have any formal home or community based services. Discussed discharge goal and patient's goal is to return home, but if she has to go somewhere she would prefer placement in the [facility]. ADMISSION DX: femerol neck fracture, missed step PATIENT STATUS: OP in a Bed RELEASE OF INFORMATION: Yes -- verbal for: discharge planning SOURCES OF INFORMATION (See demographics for contact information): Medical Record Nurse: Bedside Patient CURRENT LIVING SITUATION / LEVEL OF ASSISTANCE: Lives with spouse Independent Home has 1 step to deck and then no other steps COMMUNITY SERVICES: None HEALTHCARE DIRECTIVE: Declined POWER OF FIXTURE REPAIRER FABRICATOR: None FINANCIAL CONCERNS: No Concerns PRIMARY CARE PHYSICIAN: Yes Deandre Velasquez MD : No IS PATIENT'S ADMISSION ASSOCIATED WITH TIA, ISCHEMIC, OR HEMORRHAGIC STROKE?: No LANGUAGE / COMMUNICATION BARRIERS: No PATIENT / SUBSTITUTE DECISION MAKER GOAL UPON TRANSITION: First Choice: Home: Family/Friend Support Second Choice: Swing Bed Transitional Care ANTICIPATED NEEDS, TRANSITION CHOICES OFFERED: Acute Rehab Home Health: Occupational Therapy and Physical Therapy Home: Family/Friend Support Swing Bed Transitional Care RESOURCE(S) PROVIDED: nothing needed at this time DOES PATIENT HAVE CLOTHING TO WEAR AT DISCHARGE? Yes ANTICIPATED MODE OF TRANSPORT UPON DISCHARGE: Family Car VERIFIED CORRECT PHARMACY IS ENTERED FOR DISCHARGE: No CURRENT READMISSION RISK SCORE Predictive Risk Score Risk of Unplanned Readmission: 6.4 Please refer to readmission risk assessment flowsheet for further details. SIGNED: DEBBIE Ramos Hearing Aid Fitter Care Management Pager [phone] NET MVC DEVELOPER Occupational Therapy - Ayleen Mai OTR/L - 07/24/2020 8:15 AM CSTOT order reviewed/acknowledged. Per chart, Pt has left the medical floor for surgery this AM. OT will hold today and follow up as appropriate post-surgical for OT evaluation. ABA Gonzalez, OTR/L, CLT Alpha pager [phone] linical Team - Irma Wright RN - 07/24/2020 7:45 AM CSTPt left floor around 0730 this AM. Report given over the phone to ARU nurse Alesha RN. All pts belongings kept in pts room, no belongings sent with pt. are Planning - Irma Wright RN - 07/24/2020 6:04 AM ASP NET MVC DEVELOPER Problem: ACUTE PAIN Goal: CLIENT SATISFACTION: PAIN MANAGEMENT Description: DEFINITION: Extent of positive perception of nursing care to relieve pain. 1=Not at all satisfied, 2=Somewhat satisfied, 3=Moderately satisfied, 4=Very satisfied, 5=Completely satisfied. Outcome: NOC Rating 3 Flowsheets (Taken 07/24/2020 0440) Initial Score: 3 Target Score: 5 Plan of care reviewed with: Patient Patient specific goal for the day: To maintain pain at tolerable level with repositioning and prn/scheduled medications. Patient specific goal for the stay: To discharge pain at tolerable level. Achieve goal for stay: By discharge Patient Progress: Rating pain 5/10 to R hip, pt received prn oxy from previous nurse, pt stated medication helped with pain. Repositioned q2h. NPO at midnight for surgery this AM. VSS, will continue tomonitor. [facility] Operative Note - Fernando Villarreal MD - 07/24/2020 1:00 AM [facility] PATIENT NAME: NORMA MODI DATE OF SERVICE: 07/24/2020 SIERRA: [id number] SURGEON: Aaron Villarreal MD PRODUCT DEVELOPMENT SPECIALIST: Steffanie Perea PA-C, and Bert Rojas MD, 1st year orthopedic resident. PREOPERATIVE DIAGNOSIS: Right displaced femoral neck fracture. POSTOPERATIVE DIAGNOSIS: Right displaced femoral neck fracture. PROCEDURE PERFORMED: Right total hip arthroplasty. IMPLANTS USED: DePuy total hip arthroplasty system with a 56 mm acetabular cup and shell with a liner and a femoral head that is 36 mm, a size 5 femoral component. ANESTHESIA: Spinal. BLOOD LOSS: 150 mL. COMPLICATION: None. SPECIMEN SENT: None. INDICATIONS FOR PROCEDURE: This is a 74-year-old female who presented to [facility] after a fall complaining of right hip pain. She was found to have a right displaced femoral neck fracture. Discussed with her treatment options, both operative and nonoperative treatment. She elected to proceed with operative intervention. We discussed the risks of surgery. Risks include bleeding, pain, infection, injury to arteries, veins, nerves, reoperation, hardware failure, loss of life or limb. The patient understands all these risks. All questions answered and consent was obtained. DETAILS OF PROCEDURE: Patient brought to the operating suite, spinal anesthesia was administered aswell as preoperative antibiotics. The patient was then placed lateral on the operating table. All bony prominences were well padded. The right hip was then prepped and draped in the usual sterile fashion. Final time-out was performed to verify this was the correct patient as well as the correct operative site, that being the right hip. Everyone was in agreement and procedure was begun. Standardlateral approach to the proximal femur was performed. Incision was made. Dissection was taken downto the femoral neck fracture. A femoral neck cut was performed. The acetabulum was identified and cleaned of labrum. We were then able to ream the acetabulum up to a size 51 reamer. We first placeda 51 mm cup, but found that this was not satisfactory, so a 56 mm cup was then placed. Two screws were drilled and placed as well as a standard liner was then positioned, malleted in place. Attentionwas turned to preparation of the proximal femur. The leg was placed in the bag on the front of the patient. Proximal femur was then prepared with the broaches up to a size 5 stem. This provided goodrotational control. We then reduced the hip with a 36 mm head and a high-offset femoral neck. Oncethis was done, we reduced the hip. It was found to be stable with flexion and internal rotation andextension with external rotation. Once this was done, x-ray was obtained that showed good leg lengths, satisfactory position. At this time, the trial components were removed. Final components were then placed. The hip was then reduced and again taken through range of motion, flexion with internal rotation, extension with external rotation, found to be stable with flexion and internal rotation, ext ension with external rotation. Limb lengths were found to be symmetric. At this time, the wounds were then irrigated with copious amounts of irrigation, closed in a layered fashion. Sterile dressings were applied. Patient was awoken, taken in stable condition to postanesthesia care unit. She willreceive 24 hours of IV antibiotics, mechanical and chemical DVT prophylaxis, be weightbear as tolerated on the right lower extremity. Follow up in 2 weeks for a wound check and then in 6 weeks for repeat x-rays. Fernando Villarreal MD Receipt: [id number] Trans ID: [id number] ASP NET MVC DEVELOPER CST are Planning - Jacqueline Padilla RN - 07/23/2020 8:16 PM ASP NET MVC DEVELOPER Problem: RISK FOR FALLS Goal: FALL PREVENTION BEHAVIOR Description: DEFINITION: Personal or family health care marketing manager actions to minimize risk factors that might precipitate falls in the personal environment. 1=Never demonstrated, 2=Rarely demonstrated, 3=Sometimes demonstrated, 4=Often demonstrated, 5=Consistently demonstrated. Flowsheets (Taken 07/23/20202014) Plan of care reviewed with: Patient Patient specific goal for the day: Pt will use call light appropriately when needing assistance. Patient Progress: Patient using call light appropriately. Turn and repo Q2H to assist with movement.Will continue to monitor. linical Team - Jacqueline Padilla RN - 07/23/2020 5:38 PM ASP NET MVC DEVELOPER DAILY SKIN CHECK BEHIND EARS- right ear blanchable redness ELBOWS- bilateral blanchable redness ISCHIUM- WDL COCCYX- WDL HEELS- bilateral blanchable redness ANY OTHER AREAS OF NOTABLE CONCERN- right hand scab bilateral feet are purple and cold due to poor circulation, bilateral blanchable redness to knees, bilateral blanchable redness to hands REMOVE ALL MEDICAL DEVICES (if medically safe to do so) AND PERFORM SKIN CHECK BENEATH THOSE AREAS THAT THE DEVICE MAKES CONTACT WITH SKIN, evaluate rotating site/move device- NA Skin check completed with: Vashti Navarrete RN INTERVENTIONS ALREADY IN PLACE: NA INTERVENTIONS ADDED TODAY: NA WOCN consulted? YES/NO/NA: NA documented in this encounter Plan of Treatment Date Type Specialty Care Team Description 08/13/2020 Office Visit Orthopedics Nery Méndez, ORIENTAL RUG REPAIRER-SHOE LAY OUT PLANNER [address] [place] [address] [phone] 09/08/2020 Office Visit Orthopedics Raciel Caldera PA-C [address] [place] [address] [phone] 09/08/2020 Office Visit Orthopedics Fernando Villarreal MD [address] [place] [address] [phone] Name Type Priority Associated Diagnoses Date/Ti me TISSUE EXAM PATH Routine Closed displaced fracture of right 07/24/2020 11:30 AM ASP NET MVC DEVELOPER femoral neck (HCC) Name Type Priority Associated Diagnoses Order S chedule TISSUE EXAM PATH Routine Closed displaced Release Upo n Ordering fracture of right for 1 Occu rrences femoral neck (HCC) starting 07/24/2020, 1 completed COMPLETE BLOOD COUNT WITH Lab Routine Ea rly AM draw for labs DIFFERENTIAL until discontin ued starting 2020, 2 completed documented as of this encounter Implants Implanted Type Area Tanker Service Attendant Device Shelf Model / Identifier Expiration Serial / Date Lot Hip Screw Pncle Cncls 6.5x20mm N 121-500 Ea1 - [id number] To sai Jt Right: [employer] 08/02/2026 [id number] / Implanted: Qty: 1 on 07/24/2020 by Fernando Villarreal MD at [facility] Hip HIP / [id number] Hip Shell Pncle Sect Griptn 56 N [id number] Ea1 - [id number] To sai Jt Right: [employer] 10/03/2023 [id number] / Implanted: Qty: 1 on 07/24/2020 by Fernando Villarreal MD at [facility] Hip HIP / [id number] Hip Lnr Altrx Pe +4 0d [id number] N [id number] Ea1 - [id number] To sai Jt Right: [employer] 10/02/2021 [id number] / Implanted: Qty: 1 on 07/24/2020 by Fernando Villarreal MD at [facility] Hip HIP / [id number] Hip Hd Ezem Mtl12/14 36mm+8.5 N 1365-53-000 Ea1 - [id number] Tot al Jt Right: [employer] 05/04/2022 [id number] / Implanted: Qty: 1 on 07/24/2020 by Fernando Villarreal MD at [facility] Hip HIP / [id number] Hip Screw Pncle Cncls 6.5x25mm N [id number] Ea1 - [id number] To sai Jt Right: [employer] 02/02/2030 [id number] / Implanted: Qty: 1 on 07/24/2020 by Fernando Villarreal MD at [facility] Hip HIP / [id number] Hip Stem Actis High Sz5 N 101 Ea1 - [id number] Total Jt Right: [employer] 02/02/2029 [id number] / Implanted: Qty: 1 on 07/24/2020 by Fernando Villarreal MD at [facility] Hip HIP / [id number] Explanted Type Area Tanker Service Attendant Device Shelf Model / Identifier Expiration Serial / Date Lot Hip Shell Pncle Sect Por 50mm N Ea1 - [id number] Tot al Jt Right: [employer] 08/03/2023 / Implanted: 07/24/2020 by Fernando Villarreal MD (Quantity not on file) H ip HIP / Explanted: Qty: 1 on 07/24/[address] [facility] [id number] Hip Shell Pncle Sect Griptn 50 N Ea1 - [id number] To sai Jt Right: [employer] 06/04/2025 [id number] / Implanted: 07/24/2020 by Fernando Villarreal MD (Quantity not on file) H ip HIP / Explanted: Qty: 1 on 07/24/[address] [facility] [id number] documented as of this encounter Procedures Procedure Name Priority Date/Time Associated Comments Diagnosis COVID-19 SCREEN TO STAT 07/28/2020 10:31 Resul ts for this RULE OUT INFECTIVE AM ASP NET MVC DEVELOPER procedure are in STATUS the results section. LAB ONLY-COMPLETE Routine 07/28/2020 6:15 Result s for this BLOOD COUNT WITH AM ASP NET MVC DEVELOPER procedure a re in DIFFERENTIAL the results section. LAB ONLY-COMPLETE Routine 07/28/2020 6:15 Result s for this BLOOD COUNT WITH AM ASP NET MVC DEVELOPER procedure a re in DIFFERENTIAL the results section. LAB ONLY-COMPLETE Routine 07/27/2020 7:35 Result s for this BLOOD COUNT WITH AM ASP NET MVC DEVELOPER procedure a re in DIFFERENTIAL the results section. RENAL FUNCTION PANEL Routine 07/27/2020 7:35 Res ults for this AM ASP NET MVC DEVELOPER procedure are i n the results section. LAB ONLY-COMPLETE Routine 07/27/2020 7:35 Result s for this BLOOD COUNT WITH AM ASP NET MVC DEVELOPER procedure a re in DIFFERENTIAL the results section. LAB ONLY-COMPLETE Routine 07/26/2020 8:45 Result s for this BLOOD COUNT WITH AM ASP NET MVC DEVELOPER procedure a re in DIFFERENTIAL the results section. HEMOGLOBIN Routine 07/26/2020 8:45 Results for this AM ASP NET MVC DEVELOPER procedure are i n the results section. LAB ONLY-COMPLETE Routine 07/26/2020 8:45 Result s for this BLOOD COUNT WITH AM ASP NET MVC DEVELOPER procedure a re in DIFFERENTIAL the results section. HEMOGLOBIN Routine 07/25/2020 11:19 Results for this AM ASP NET MVC DEVELOPER procedure are i n the results section. XRAY PELVIS 1 OR 2 Routine 07/24/2020 1:03 Resul ts for this VIEWS PM ASP NET MVC DEVELOPER procedure are i n the results section. XRAY PELVIS WITH HIP Routine 07/24/2020 12:07 Res ults for this 1 VIEW RT PM [employer] DEVELOPER procedure are i n the results section. XRAY PELVIS 1 OR 2 Routine 07/24/2020 11:37 Resul ts for this VIEWS AM [employer] DEVELOPER procedure are i n the results section. ARTHROPLASTY HIP 07/24/2020 8:23 Closed displaced AM [employer] DEVELOPER fracture of right femoral neck (HCC) Case Notes AMSCO TABLE, LATERAL POSITON , DEPUY, ANTOINE FROM DEPUY NOTIFIED PER VOICE MESSAGE. TYPE AND SCREEN Routine 07/24/2020 5:36 AM [employer] DEVELOPER R esults for this procedure are i n the results section . COMPLETE BLOOD COUNT WITHOUT Routine 07/24/2020 5:36 AM [employer] DEVELOPER Results for this DIFFERENTIAL procedure are i n the results section . BASIC METABOLIC PANEL Routine 07/24/2020 5:36 AM [employer] DEVELOPER Results for this procedure are i n the results section . XRAY PELVIS 1 OR 2 VIEWS Routine 07/23/2020 11:43 PM [employer] DEVELOPER Results for this procedure are i n the results section . LAB ONLY-ABORH Routine 07/23/2020 9:34 PM [employer] DEVELOPER Re sults for this procedure are i n the results section . PROTIME/INR Routine 07/23/2020 9:34 PM [employer] DEVELOPER Resu lts for this procedure are i n the results section . COMPLETE BLOOD COUNT WITHOUT Routine 07/23/2020 9:34 PM [employer] DEVELOPER Results for this DIFFERENTIAL procedure are i n the results section . COMPREHENSIVE METABOLIC Routine 07/23/2020 9:34 PM [employer] DEVELOPER Results for this PANEL procedure are i n the results section . documented in this encounter Results COVID-19 SCREEN TO RULE OUT INFECTIVE STATUS (07/28/2020 10:31 AM ASP NET MVC DEVELOPER) SARS CoV RNA, RT Not Detected Not Detected [facility] Specimen Respiratory - Entire nasopharynx (body s tructure) Narrative Performed At Your Covid-19 test is negative: [facility] 1)Avoiding close contact is still recommended. 2)Cover your coughs and snee zes. 3)Wash your hands often with soap and water for at least 20 seconds or use an alcohol-based senior officer containing over 60% alcohol. Avoid touching your face. 4)Avoid sharing personal household items, including dishes, cups, utensils, towels, clothing, or bedding. These items should be cleaned thoroughly with soap and water after use. Clean all "high touch" surfaces in your home daily. 5) Monitor your symptoms. Contact your provider if you are feeling worse. If you have shortness of breath or difficulty breathing, call 911. This test was performed by polymerase chain reaction (PCR) on the [employer] instrument. This assay is for in vitro diagnostic use under FDA Emergency Use Authorization only. Optimal performance of this test requires appropriate specimen collection, storage, and transport to the test site. Detection of SARS-CoV-2 RNA may be affected by sample collection methods, patient factors (eg, presence of symptoms), and/or stage of infection. False-negative results may arise from degradation of viral RNA during shipping/storage. Results should be interpreted by a trained professional in conjunction with the pat ient s history and clinical signs and symptoms, and epidemiological risk factors. Negative (Not Detected) results do not preclude infection with the SARS-CoV-2 virus and should not be the sole basis of patient treatment/management or public health decision. Follow up testing should be performed according to the current CDC recommendations. Performing Organization Address City/State/Zipcode Phone Number JAZLYN ESCOTO [place] [address] [place] [address] LABORATORY [address] LAB ONLY-COMPLETE BLOOD COUNT WITH DIFFERENTIAL (07/28/2020 6:15 AM ASP NET MVC DEVELOPER) Pathologist Sig nature WBC 7.2 4.0 - 11.0 K/uL [facility] RBC 2.69 (L) 3.80 - 5.[address] M/uL Hemoglobin 8.5 (L) 11.5 - 15.[address] g/dL Hematocrit 25.6 (L) 35.0 - 45.0 % [address] MCV 95.2 80.0 - 98.[address] MCH 31.6 25.5 - 34.[address] MCHC 33.2 31.5 - 36.[address] g/dL RDW-CV 14.7 11.5 - 15.5 % [address] RDW-SD 50.2 (H) 35.5 - 50.[address] Platelet Count 269 140 - 400 K/uL [address] MPV 10.1 8.5 - 12.[address] Seg Neut Absolute 4.3 1.8 - 8.0 K/uL [address] Lymphocytes Absolute 1.5 0.8 - 4.1 K/uL [place] [address] [facility] Monocytes Absolute 0.6 0.0 - 1.0 K/uL [address] Eosinophils Absolute 0.6 0.0 - 0.7 K/uL [place] [address] [facility] Basophil Absolute 0.1 0.0 - 0.2 K/uL [address] Immature Granulocyte 0.08 (H) 0.00 - 0.[address] Absolute K/uL Neutrophils Abs. 4,300 /uL [address] (Segs and Bands) Neutrophils Percent 60.0 % [address] Lymphocytes Percent 21.1 % [address] Monocytes Percent 8.9 % [address] Immature Granulocyte 1.1 % [address] Percent Eosinophils Percent 8.2 % [place] [address] [facility] Basophil Percent 0.7 % [address] Nucleated RBC 0 /[address] Specimen Blood - Blood specimen (specimen) Performing Organization Address City/State/Zipcode Phone Number [address] [place] [address] LAB ONLY-COMPLETE BLOOD COUNT WITH DIFFERENTIAL (07/27/2020 7:35 AM [employer] MVC DEVELOPER) Pathologist [facility] nature WBC 7.6 4.0 - 11.0 K/uL [address] RBC 2.64 (L) 3.80 - 5.[address] M/uL Hemoglobin 8.5 (L) 11.5 - 15.[address] g/dL Hematocrit 25.1 (L) 35.0 - 45.0 % [address] MCV 95.1 80.0 - 98.[address] MCH 32.2 25.5 - 34.[address] MCHC 33.9 31.5 - 36.[address] g/dL RDW-CV 14.8 11.5 - 15.5 % [address] RDW-SD 50.9 (H) 35.5 - 50.[address] Platelet Count 220 140 - 400 K/uL [address] MPV 10.2 8.5 - 12.[address] Seg Neut Absolute 4.9 1.8 - 8.0 K/uL [address] Lymphocytes Absolute 1.3 0.8 - 4.1 K/uL [place] [address] [facility] Monocytes Absolute 0.6 0.0 - 1.0 K/uL [address] Eosinophils Absolute 0.6 0.0 - 0.7 K/uL [address] Basophil Absolute 0.1 0.0 - 0.2 K/uL [address] Immature Granulocyte 0.04 0.00 - 0.[address] Absolute K/uL Neutrophils Abs. 4,900 /uL [address] (Segs and Bands) Neutrophils Percent 65.3 % [address] Lymphocytes Percent 17.5 % [address] Monocytes Percent 8.3 % [address] Immature Granulocyte 0.5 % [address] Percent Eosinophils Percent 7.7 % [address] Basophil Percent 0.7 % [address] Nucleated RBC 0 /[address] Specimen Blood - Blood specimen (specimen) Performing Organization Address City/State/Zipcode Phone Number [address] [place] [id number] RENAL FUNCTION PANEL (07/27/2020 7:35 AM [employer] NET MVC DEVELOPER) Pathologist Sig nature Glucose 82 70 - 100 mg/dL [address] BUN 12 6 - 22 mg/dL [address] Creatinine 0.63 0.60 - 1.[address] mg/dL BUN/Creatinine Ratio 19.0 10.0 - 25.[address] Sodium 140 135 - 145 meq/L [address] Potassium 3.6 3.5 - 5.3 meq/L [address] Chloride 112 (H) 99 - 110 meq/L [address] CO2 20 20 - 29 meq/L [address] Anion Gap with K 12 6 - 20 meq/L [address] Calcium 8.1 (L) 8.5 - 10.5 mg/dL [address] Phosphorus 2.5 2.5 - 4.5 mg/dL [address] Albumin 2.5 (L) 3.5 - 5.0 g/dL [address] Corrected Calcium 9.3 8.5 - 10.5 mg/dL [address] Age [address] eGFR Non- >90 >=[address] Vincentian mL/min/1.73m2 eGFR >90 >=[address] mL/min/1.73m2 Specimen Blood - Blood specimen (specimen) Performing Organization Address City/State/Zipcode Phone Number [address] [place] [address], [place] [address] LAB ONLY-COMPLETE BLOOD COUNT WITH DIFFERENTIAL (07/26/2020 8:45 AM [employer] NET MVC DEVELOPER) Pathologist Sig nature WBC 9.7 4.0 - 11.0 K/uL [address] RBC 2.72 (L) 3.80 - 5.[address] M/uL Hemoglobin 8.7 (L) 11.5 - 15.[address] g/dL Hematocrit 26.4 (L) 35.0 - 45.0 % [address] MCV 97.1 80.0 - 98.[address] MCH 32.0 25.5 - 34.[address] MCHC 33.0 31.5 - 36.[address] g/dL RDW-CV 14.7 11.5 - 15.5 % [address] RDW-SD 52.3 (H) 35.5 - 50.[address] Platelet Count 209 140 - 400 K/uL [address] MPV 10.8 8.5 - 12.[address] Seg Neut Absolute 7.4 1.8 - 8.0 K/uL [address] Lymphocytes Absolute 1.0 0.8 - 4.1 K/uL [place] [address] [facility] Monocytes Absolute 0.8 0.0 - 1.0 K/uL [address] Eosinophils Absolute 0.3 0.0 - 0.7 K/uL [place] [address] [facility] Basophil Absolute 0.1 0.0 - 0.2 K/uL [address] Immature Granulocyte 0.04 0.00 - 0.[address] Absolute K/uL Neutrophils Abs. 7,400 /uL [address] (Segs and Bands) Neutrophils Percent 76.5 % [address] Lymphocytes Percent 10.7 % [address] Monocytes Percent 8.7 % [address] Immature Granulocyte 0.4 % [address] Percent Eosinophils Percent 3.1 % [address] Basophil Percent 0.6 % [address] Nucleated RBC 0 /[address] Specimen Blood - Blood specimen (specimen) Performing Organization Address [facility] Phone Number [address] [place] [address] HEMOGLOBIN (07/26/2020 8:45 AM ASP NET MVC DEVELOPER) Pathologist Sig nature Hemoglobin 8.5 (L) 11.5 - 15.8 g/dL [address] Specimen Blood - Blood specimen (specimen) Performing Organization Address [facility] Phone Number [address] [address] HEMOGLOBIN (07/25/2020 11:19 AM ASP NET MVC DEVELOPER) Pathologist Sig nature Hemoglobin 10.3 (L) 11.5 - 15.8 g/dL [address] Specimen Blood - Blood specimen (specimen) Performing Organization Address City/State/Zipcode Phone Number [address] [place] [address] XRAY PELVIS 1 OR 2 VIEWS (07/24/2020 1:03 PM [employer] NET MVC DEVELOPER)Only the most recent of3 resultswithin the time period is included. Specimen Narrative Performed At [facility] Patient Name: NORMA MDOI Date of : 1945 Procedure: XRAY PELVIS 1 OR 2 VIEWS Date of Service: 07/24/2020 EXAM: XRAY PELVIS 1 OR 2 VIEWS INDICATION:s/p R MAGGIE HISTORY: Post right hip arthroplasty COMPARISON(S): Earlier x-rays going back to 07/23/2020 FINDINGS: The patient is post right hip arthroplasty. There is n o postoperative fracture or dislocation is shown. There is mild osteoarthritis that affect s the left hip joint. Finalized by: Cirilo Boss MD on 07/06 1:09 PM ASP NET MVC DEVELOPER Patient/Procedure Information: [facility] MRN/SIERRA: [id number] Order Number: [id number] Accession Number: [id number] Ordering Provider: STEFFANIE PEREA Authorizing Provider: STEFFANIE PEREA Procedure Note Interface, [facility] - 07/24/2020 1:11 PM ASP NET MVC DEVELOPER Patient Name: NORMA MODI Date of : 1945 Procedure: XRAY PELVIS 1 OR 2 VIEWS Date of Service: 07/24/2020 EXAM: XRAY PELVIS 1 OR 2 VIEWS INDICATION:s/p R MAGGIE HISTORY: Post right hip arthroplasty COMPARISON(S): Earlier x-rays going back to 07/23/2020 FINDINGS: The patient is post right hip arthroplas ty. There is no postoperative fracture or dislocation is shown. There is mild osteoarthritis that affect s the left hip joint. Finalized by: Cirilo Boss MD on 07/06 1:09 PM ASP NET MVC DEVELOPER Patient/Procedure Information: [facility] MRN/SIERRA: [id number] Order Number: [id number] Accession Number: [id number] Ordering Provider: STEFFANIE PEREA Authorizing Provider: STEFFANIE PEREA Performing Organization Address [facility]/Zipcode Phone Number [id number] XRAY PELVIS ONE LAT HIP - RT (07/24/2020 12:07 PM ASP NET MVC DEVELOPER) Specimen Narrative Performed At [facility] Patient Name: NORMA MODI Date of : 1945 Procedure: XRAY PELVIS WITH HIP 1 VIEW RT Date of Service: 07/24/2020 EXAM: XRAY PELVIS WITH HIP 1 VIEW RT INDICATION:Intra-op.procedure HISTORY: Right hip fracture. Intraoperat khadijah film FINDINGS: The patient is undergoing a right hip arthroplasty. An intraoperative film was obtained to assist with surgica l planning Finalized by: Cirilo Boss MD on 07/06 1:09 PM ASP NET MVC DEVELOPER Patient/Procedure Information: [facility] MRN/SIERRA: [id number] Order Number: [id number] Accession Number: [id number] Ordering Provider: FERNANDO VILLARREAL Authorizing Provider: FERNANDO VILLARREAL Procedure Note Interface, [facility] - 07/24/2020 1:11 PM ASP NET MVC DEVELOPER Patient Name: NORMA MODI Date of : 1945 Procedure: XRAY PELVIS WITH HIP 1 VIEW RT Date of Service: 07/24/2020 EXAM: XRAY PELVIS WITH HIP 1 VIEW RT INDICATION:Intra-op.procedure HISTORY: Right hip fracture. Intraoperat khadijah film FINDINGS: The patient is undergoing a right hip ar throplasty. An intraoperative film was obtained to assist with surgical planning Finalized by: Cirilo Boss MD on 07/06 1:09 PM ASP [employer] MVC DEVELOPER Patient/Procedure Information: [facility] MRN/SIERRA: [id number] Order Number: [id number] Accession Number: [id number] Ordering Provider: FERNANDO VILLARREAL Authorizing Provider: FERNANDO VILLARREAL Performing Organization Address [facility]/Zipcode Phone Number [id number] BASIC METABOLIC PANEL WITH GFR (07/24/2020 5:36 AM ASP NET MVC DEVELOPER) [facility] Glucose 100 70 - 100 mg/dL [id number] BUN 20 6 - 22 mg/dL [place] [address] [facility] Creatinine 0.79 0.60 - 1.10 [place] [address] [facility] mg/dL BUN/Creatinine Ratio 25.3 (H) 10.0 - 25.[address] Sodium 137 135 - 145 meq/L [address] Potassium 4.0 3.5 - 5.3 meq/L [address] Chloride 107 99 - 110 meq/L [address] CO2 22 20 - 29 meq/L [address] Anion Gap with K 12 6 - 20 meq/L [address] Calcium 8.3 (L) 8.5 - 10.[address] mg/dL Age [address] eGFR Non- 71 >=[address] Vincent[place] mL/min/1.73m2 eGFR 86 >=[address] mL/min/1.73m2 Specimen Blood - Blood specimen (specimen) Performing Organization Address [facility] Phone Number [address] [address] COMPLETE BLOOD COUNT WITHOUT DIFFERENTIAL (07/24/2020 5:36 AM ASP NET MVC DEVELOPER) [facility] WBC 5.8 4.0 - 11.0 K/uL [address] RBC 3.74 (L) 3.80 - 5.30 M/uL [address] Hemoglobin 11.8 11.5 - 15.8 g/dL [address] Hematocrit 35.9 35.0 - 45.0 % [address] MCV 96.0 80.0 - 98.[address] MCH 31.6 25.5 - 34.[address] MCHC 32.9 31.5 - 36.5 g/dL [address] RDW-CV 14.5 11.5 - 15.5 % [address] RDW-SD 50.1 (H) 35.5 - 50.[address] Platelet Count 257 140 - 400 K/uL [address] MPV 9.9 8.5 - 12.[address] Specimen Blood - Blood specimen (specimen) Performing Organization Address [facility] Phone Number [address] [place] [address], [place] [address] TYPE AND SCREEN (07/24/2020 5:36 AM ASP NET MVC DEVELOPER) Pathologist Sig nature ABO Type A [address] BLOOD BANK Rh Type Positive [address] BLOOD BANK Antibody Screen NegativeComment: [address] Allogenic Red Cells BLOOD BANK Available Expiration Date 07/27/2020 23:[address] BLOOD BANK Specimen Blood - Blood specimen (specimen) Performing Organization Address [facility] Number [address] BLOOD BANK [address] [place] [address] LAB ONLY-ABORH (07/23/2020 9:34 PM ASP NET MVC DEVELOPER) Pathologist Sig nature ABO Type A [address] BLOOD BA NK Rh Type Positive [address] BLOOD BA NK Specimen Blood - Blood specimen (specimen) Performing Organization Address [facility] Number [address] BLOOD BANK [address] [place] [address] PROTIME/INR (07/23/2020 9:34 PM ASP NET MVC DEVELOPER) Pathologist Sig [facility] Protime 13.7 12.0 - 14.[address] INR 1.1 (L) 2.0 - 3.[address] Specimen Blood - Blood specimen (specimen) Narrative Performed At Normal INR reference range (patients not on oral antic oagulants) [address] 0.9-1.1. INR Standard Intensity = (2.0 - 3.0) INR Higher Intensity = (2.5 - 3.5) Performing Organization Address [facility] Number [address] [address] COMPREHENSIVE METABOLIC PANEL (07/23/2020 9:34 PM ASP NET MVC DEVELOPER) Pathologist Sig [facility] Glucose 163 (H) 70 - 100 mg/dL [address] BUN 15 6 - 22 mg/dL [address] Creatinine 0.79 0.60 - 1.[address] mg/dL BUN/Creatinine Ratio 19.0 10.0 - 25.[address] Sodium 137 135 - 145 meq/L [address] Potassium 3.5 3.5 - 5.3 meq/L [address] Chloride 106 99 - 110 meq/L [address] CO2 21 20 - 29 meq/L [address] Anion Gap with K 14 6 - 20 meq/L [address] Calcium 8.5 8.5 - 10.[address] mg/dL Protein Total 6.6 6.0 - 8.2 g/dL [address] Albumin 3.8 3.5 - 5.0 g/dL [address] Alkaline Phosphatase 75 30 - 150 U/L [address] AST - SGOT 29 0 - 35 U/L [address] ALT - SGPT 24 0 - 55 U/L [address] Bilirubin Total 0.4 0.2 - 1.2 mg/dL [address] Corrected Calcium 8.7 8.5 - 10.[address] mg/dL Age [address] eGFR Non- 71 >=[address] Vincent[place] mL/min/1.73m2 eGFR 86 >=[address] mL/min/1.73m2 Specimen Blood - Blood specimen (specimen) Performing Organization Address City/State/Zipcode Phone Number [address] [place] [address] COMPLETE BLOOD COUNT WITHOUT DIFFERENTIAL (07/23/2020 9:34 PM ASP NET MVC DEVELOPER) Pathologist Sig nature WBC 9.3 4.0 - 11.0 K/uL [address] RBC 3.95 3.80 - 5.30 M/uL [address] Hemoglobin 12.5 11.5 - 15.8 g/dL [address] Hematocrit 38.1 35.0 - 45.0 % [address] MCV 96.5 80.0 - 98.[address] MCH 31.6 25.5 - 34.[address] MCHC 32.8 31.5 - 36.5 g/dL [address] RDW-CV 14.2 11.5 - 15.5 % [address] RDW-SD 50.4 (H) 35.5 - 50.[address] Platelet Count 276 140 - 400 K/uL [address] MPV 10.2 8.5 - 12.[address] Specimen Blood - Blood specimen (specimen) Performing Organization Address City/State/Zipcode Phone Number [address] [place] [address] documented in this encounter Visit Diagnoses Diagnosis Closed displaced fracture of right femor al neck (HCC) - Primary Status post total replacement of right h ip Pathological fracture of other site due to osteoporosis, unspecified osteoporosis type, initial encounter Nausea Nausea alone Constipation, unspecified constipation t ype Closed fracture of neck of right femur, initial encounter ([facility]) Femoral neck fracture (HCC) Closed fracture of unspecified part of n serena of femur documented in this encounter Discharge Diagnoses Not on filedocumented in this encounter Administered Medications Medication Order MAR Action Action Date Dose Rate Site acetaminophen (TYLENOL) tablet Given 07/25/2020 3:36 AM ASP [employer] MVC DEVELOPER 650 mg 650 mg 650 mg, Oral, Every four hours prn, Starting Kristy 07/23/20 at 1739, Until Discontinued, mild pain, fever, pain scale 3 or less, Pain stratification is defined as follows for either analog scale (0-10) or critical care pain observation tool (CPOT, 0-8). a. No pain (0) b. Mild pain level (1-3) c. Moderate pain level (4-6) d. Severe pain level (greater than or equal to 7) Adult patients: Total dose of acetaminophen from all acetaminophen containing products should not exceed 4 grams (4,000 mg) per day. Pediatric Patients 0 - 3 months: Maximum of 60 mg/kg/24 hours of acetaminophen. Pediatric Patients older than 3 months: Maximum of 75 mg/kg/24 hours of acetaminophen (Never exceeding 4 grams/day)., acetaminophen (TYLENOL) tablet 650 mg Given 07/28/2020 12:13 PM [employer] MVC DEVELOPER 650 mg 650 mg, Oral, Every six hours, First dose on Mon07/24/20 at 1800, Until Discontinued, Post - Op, Total dose of acetaminophen from all acetaminophen containing products should not exceed 4 g (4000 mg) per day., Given 07/28/2020 5:40 AM [employer] MVC DEVELOPER 650 mg Given 07/27/2020 6:16 PM [employer] DEVELOPER 650 mg bisacodyl (DULCOLAX) suppository 10 mg 10 mg, Rectal, One time a day prn, Starting Kristy 1 at 1839, Until Discontinued, constipation, Use SECOND for constipatio n. If patient cannot take oral medications, use first for constipation., docusate sodium (THEREVAC-SB MINI;ENEMEE Z MINI) 283 MG enema 1 enema 1 enema, Rectal, One time a day prn, Starting Kristy 07/23 at 1839, Until Discontinued, constipation, Use THIRD for constipation - if no BM 8 hours after dulcolax suppository. If patient cannot take oral medi cations, use second for constipation., enoxaparin (LOVENOX) subcutaneous injection Given 07/28/2020 12:13 PM [employer] DEVELOPER 40 mg solution 40 mg 40 mg, Subcutaneous, Daily, 28 doses, First dose on Mon07/25/20 at 1200, Last dose on Mon08/21/20 at 1200, Post - Op, Begin 1200 on first postop day. To avoid the loss of drug when using the 30 mg and 40 mg prefilled syringes, do not expel the air bubble from the syringe before the injection. For ADULT patients: Administration should be alternated between the left and right anterolateral and left and right posterolateral abdominal wall. The whole length of the needle should be introduced into a skin fold held between the thumb and forefinger; the skin fold should be held throughout the injection. To minimize bruising, do not rub the injection site after completion of the injection. For PEDIATRIC patients: Administration should be alternated between appropriate sites for patient age/weight (infants/small children = upper thigh; older children/adolescents = left and right anterolateral and left and right posterolateral abdominal wall). During administration to infants/smaller children sometimes the whole length of the needle is not "introduced" during the injection. Administer injection into a skin fold held between the thumb and forefinger; the skin fold should be held throughout the injection. To minimize bruising, do not rub the injection site after completion of the injection., Given 07/27/2020 12:19 PM ASP [employer] MVC DEVELOPER 40 mg Given 07/26/2020 12:53 PM [employer] DEVELOPER 40 mg fentaNYL 100 mcg/2 mL preservative free injection solution 50 mcg 50 mcg, IV, Every four hours prn, Starti ng Kristy 07/23/20 at 1841, Until Discontinued, other (Specify), breakthrough pain, 1 mL metoclopramide (REGLAN) inj soln 5 mg 5 mg, IV, Every six hours prn, Starting Kristy 07/23/20 at 1739, Until Discontinued, nausea, vomiting, 1 mL, Use SECOND. If ineffective and ondansetron used, call physician for alternative If preference is to further dilute for IV administration: First draw up patient-specific dose, then dilute to 10 mL with 0.9% sodium chloride., ondansetron (ZOFRAN ODT) dispersible tab let 4 mg 4 mg, Oral, Four times a day prn, Starti ng Kristy 07/23/20 at 1839, Until Discontinued, nausea, vomiting, Use FIRST for nausea / vomiting. If ineffective after 30 minutes use ondansetron IV, ondansetron (ZOFRAN) injection solution 4 mg 4 mg, IV, Every four hours prn, Starting Kristy 07/23/20 at 1739, Until Discontinued, nausea, vomiting, 2 mL, Use FIRST. If ineffective afte r 15 minutes use metoclopramide. If preference is to further dilute for IV administration: First draw up patient-specific dose, then dilute to 10 mL wi th 0.9% sodium chloride., ondansetron (ZOFRAN) injection solution 4 mg 4 mg, IV, Four times a day prn, Starting Kristy 07/23/20 at 1839, Until Discontinued, nausea, vomiting, 2 mL, Use SECOND for n ausea / vomiting. If ineffective after 30 minutes and ondansetron ODT used, call p lay for alternative. If preference is to further dilute for IV administration: First draw up patient-specific dose, then dilute to 10 mL with 0.9% sodium chloride., polyethylene glycol (MIRALAX) packet 1 Given 07/28/2020 7:51 AM [employer] DEVELOPER 1 packet packet 1 packet, Oral, Two times a day, First dose on Mon07/24/20 at 2100, Until Discontinued, Post - Op, Hold if 2 loose stools occur in the last 24 hours. Dissolve in 8 ounces of water, juice, soda, coffee, tea Do NOT give if patient on thickened liquids. Contact provider for alternative if needed., Given 07/27/2020 8:04 AM [employer] 1 packet Given 07/25/2020 8:24 PM [employer] 1 packet senna-docusate sodium (SENOKOT-S;PERICOL EFRAIN) tablet 2 tablet 2 tablet, Oral, Two times a day prn, Starting Kristy 07/23 at 1839, Until Discontinued, constipation, Use FIRST fo r constipation unless patient cannot take oral medications., senna-docusate sodium Given 07/28/2020 7:51 AM [employer] 2 tablets (SENOKOT-S;PERICOLACE) tablet 2 tablet 2 tablet, Oral, Two times a day, First dose on Mon07/24/20 at 2100, Until Discontinued, Post - Op, Hold if 2 loose stools occur in the last 24 hours., Given 07/27/2020 8:04 AM [employer] 2 tablets Given 07/26/2020 8:09 PM [employer] 2 tablets sodium chloride 0.9% flush (adult) 10 mL Given 07/24/2020 2:50 PM [employer] 10 mL 10 mL, IV, Two times a day and prn, First dose on Mon07/23/20 at 2100, Until Discontinued, 10 mL, Flush IV line as scheduled and as often as necessary before and after meds., sodium chloride 0.9% flush (adult) 10 mL Given 07/28/2020 7:51 AM [employer] 10 mL 10 mL, IV, Two times a day and prn, First dose on Mon07/23/20 at 2100, Until Discontinued, 10 mL, Flush IV line as scheduled and as often as necessary before and after meds., Given 07/27/2020 9:00 PM [employer] 10 mL Given 07/27/2020 8:04 AM [employer] 10 mL Medication Order MAR Action Action Date Dose Rate Site ceFAZolin (ANCEF) 2000 mg/20 mL Given 07/25/2020 7:54 AM [employer] 2, 000 mg sterile water IV syringe 2,000 mg, IV, Every eight hours, 3 doses, First dose on Mon07/24/20 at 1730, Last dose on Mon07/25/20 at 0930, 20 mL, PACU - Continue Post-Op, Administer as IV push over 4 minutes., Given 07/25/2020 1:44 AM [employer] 2,000 mg Given 07/24/2020 6:38 PM [employer] 2,000 mg heparin (porcine) injection solution Given 07/24/2020 9:[address] 5,000 Units 5,000 Units 5,000 Units, Subcutaneous, Every eight hours, First dose on Kristy 07/23/20 at 2200, Until Discontinued, 1 mL Given 07/24/2020 2:49 PM [employer] 5,000 Units Given 07/23/2020 10:03 PM [employer] 5,000 Units lactated ringers IV solution Already Infusing 07/24/2020 12:45 PM [employer] 100 mL/hr IV, at 100 mL/hr, Continuous, Starting Mon07/24/20 at 1235, Until Mon07/24/20 at 1343, 1,000 mL, PACU, TKO current fluids if patient is going to Day Unit / ARU and tolerating PO fluids without nausea., oxyCODONE-acetaminophen (PERCOCET) 10-325 Given 2020 10:02 PM [employer] 1 tablet MG tablet 1 tablet 1 tablet, Oral, Every six hours prn, Starting Kristy 07/23/20 at 1840, Until Mon07/24/20 at 1251, severe pain, Total dose of acetaminophen from all acetaminophen containing products should not exceed 4 grams (4000 mg) per day., sodium chloride 0.9% IV solution New Bag 07/27/2020 8:04 AM [employer] 50 mL/hr IV, at 50 mL/hr, Continuous, Starting Kristy 07/23/20 at 1840, Until Mon07/27/20 at 2026, 1,000 mL New Bag 07/26/2020 12:54 PM [employer] 50 mL/hr New Bag 07/25/2020 5:38 PM [employer] 50 mL/hr documented in this encounter
[2020-07-29] MEDS: Enoxaparin 40 MG/0.4 ML Syringe SUBCUT SCH (11:57)
[2020-07-29] MEDS: Ibuprofen 200 MG Tab PO SCH ×2 (16:53→21:38)
[2020-07-29] MEDS: Acetaminophen 325 MG Tab PO SCH ×2 (16:53→21:37)
[2020-07-30] MEDS: Ibuprofen 200 MG Tab PO SCH ×4 (04:00→21:27)
[2020-07-30] MEDS: Acetaminophen 325 MG Tab PO SCH ×4 (04:00→21:29)
[2020-07-30] MEDS: Cholecalciferol (Vitamin D3) 25 MCG Tab PO SCH (08:44)
[2020-07-30] MEDS: Polyethylene Glycol 3350 Powder 17 GM Packet PO SCH (08:44)
[2020-07-30] MEDS: Calcium Carbonate 500 MG Tablet PO SCH ×2 (08:44→18:11)
[2020-07-30] MEDS: Multivitamin Tab PO SCH (08:44)
[2020-07-30] MEDS: Bacitracin Oint 28.35 GM Tube TOP SCH ×3 (09:59→21:27)
[2020-07-30] MEDS: Enoxaparin 40 MG/0.4 ML Syringe SUBCUT SCH (12:35)
--- NOTE | 2020-07-30 14:28 | PCM.SN.2 ---
- Free Text/Narrative Note: Date of Service: 07/30/20 S: Norma complained of itching to the nurse and they noted fine rash on her back, also area of redness along her waistband on right hip, some redness around dressing site. She denies any known allergies to medications. O: Fine maculopapular rash scattered along back, NT. Erythematous patch along right hip at waistband, there is a scab 1 cm where her underwear is digging into her skin. Mild TTP. Surrounding erythema/pink around Allevyn dressing on right hip, blanching, NT. No warmth. A: Irritation dermatitis P: Hydrocortisone 1% cream bid to affected areas 2 weeks on and 2 weeks off. Bacitracin ointment tid to right hip x 7 days. Continue to monitor and adjust treatments as necessary. Post op follow up on 08/13.
[2020-07-30] MEDS: Hydrocortisone Acetate 1% Crm 30 GM Tube TOP PRN ×2 (15:10→19:58)
[2020-07-31] MEDS: Ibuprofen 200 MG Tab PO SCH ×4 (03:47→21:15)
[2020-07-31] MEDS: Acetaminophen 325 MG Tab PO SCH ×4 (03:48→21:16)
[2020-07-31] MEDS: Cholecalciferol (Vitamin D3) 25 MCG Tab PO SCH (08:08)
[2020-07-31] MEDS: Bacitracin Oint 28.35 GM Tube TOP SCH ×3 (08:08→20:25)
[2020-07-31] MEDS: Calcium Carbonate 500 MG Tablet PO SCH ×2 (08:08→17:19)
[2020-07-31] MEDS: Polyethylene Glycol 3350 Powder 17 GM Packet PO SCH (08:08)
[2020-07-31] MEDS: Multivitamin Tab PO SCH (08:08)
--- NOTE | 2020-07-31 12:34 | PN ---
DATE SEEN: 07/31/2020 SUBJECTIVE: Norma Bolton is a delightful 74-year-old female seen today for review. Had a fall on 07/23/2020, fell off the step at home. Sustained a right hip fracture. Doing well. Dr. Villarreal, provider of record. Hemoglobin a little bit low 8.5 at discharge; we will recheck her hemoglobin. Doing well with pain control, Tylenol and ibuprofen. Planned Lovenox 1 months duration. Pain is well controlled. OBJECTIVE: VITAL SIGNS: 37.1, 80, 118/69, 15, and 96%. GENERAL: In good spirits. NECK: Benign. Thyroid small. CHEST: On auscultation, clear in all lung headley. HEART: No ectopy or murmur. ABDOMEN: Benign. Surgical wound bulky dressing and padded dressing in place. Minimal discharge. ASSESSMENT: Right hip fracture. Rehab in place. PLAN: Continue rehab, pain medications and care. Short-term stay expected. We will check her hemoglobin today. /[id number] 1225 VANDANA/MARYBEL
[2020-07-31] MEDS: Enoxaparin 40 MG/0.4 ML Syringe SUBCUT SCH (12:43)
[2020-08-01] MEDS: Ibuprofen 200 MG Tab PO SCH ×4 (04:00→22:01)
[2020-08-01] MEDS: Acetaminophen 325 MG Tab PO SCH ×4 (04:01→22:02)
[2020-08-01] MEDS: Hydrocortisone Acetate 1% Crm 30 GM Tube TOP PRN ×2 (04:27→04:30)
[2020-08-01] MEDS ORDERED: hydrOXYzine HCl 25 MG Tab PO PRN (04:37)
[2020-08-01] MEDS: Bacitracin Oint 28.35 GM Tube TOP SCH ×3 (08:14→20:59)
[2020-08-01] MEDS: Calcium Carbonate 500 MG Tablet PO SCH ×2 (08:14→17:38)
[2020-08-01] MEDS: Polyethylene Glycol 3350 Powder 17 GM Packet PO SCH (08:15)
[2020-08-01] MEDS: Cholecalciferol (Vitamin D3) 25 MCG Tab PO SCH (08:15)
[2020-08-01] MEDS: Multivitamin Tab PO SCH (08:15)
[2020-08-01] MEDS: Enoxaparin 40 MG/0.4 ML Syringe SUBCUT SCH (11:21)
--- NOTE | 2020-08-01 11:26 | PN ---
DATE SEEN: 08/01/2020 SUBJECTIVE: Norma Bolton is a 74-year-old female in swing bed. Took a fall at home on 07/23/2020. Had surgical repair by Dr. Villarreal, [facility]. Doing well. At present on ibuprofen, Lovenox, and Arthritis Strength Tylenol. LABORATORY STUDIES: Hemoglobin 8.5, risen to 9.0. [place] off plan 08/13/2020. PHYSICAL EXAMINATION: VITAL SIGNS: Stable. 36.7, 77, 109/60, 16, and 96. GENERAL: In good spirits. NECK: Benign. Thyroid small. CHEST: Clear in all lung headley. HEART: No ectopy or murmur. ABDOMEN: Benign. Incision healing well. ASSESSMENT: 1. Right hip fracture. 2. Total hip arthroplasty. 3. Anemia, improved, 8.5 to 9. PLAN: Medications, care, and treatment appropriate. No changes required. Little pruritic rash, likely related to a pillow cover, appears to be comfortable. /[id number] 1108 /MARYBEL
[2020-08-02] MEDS: Acetaminophen 325 MG Tab PO SCH ×4 (05:30→21:57)
[2020-08-02] MEDS: Ibuprofen 200 MG Tab PO SCH ×4 (05:30→21:57)
[2020-08-02] MEDS: Bacitracin Oint 28.35 GM Tube TOP SCH ×3 (08:53→20:34)
[2020-08-02] MEDS: Multivitamin Tab PO SCH (08:53)
[2020-08-02] MEDS: Hydrocortisone Acetate 1% Crm 30 GM Tube TOP PRN (08:53)
[2020-08-02] MEDS: Calcium Carbonate 500 MG Tablet PO SCH ×2 (08:53→17:46)
[2020-08-02] MEDS: Cholecalciferol (Vitamin D3) 25 MCG Tab PO SCH (08:53)
[2020-08-02] MEDS: Polyethylene Glycol 3350 Powder 17 GM Packet PO SCH (08:54)
[2020-08-02] MEDS: Enoxaparin 40 MG/0.4 ML Syringe SUBCUT SCH (11:43)
--- NOTE | 2020-08-02 13:57 | PN ---
DATE SEEN: 08/02/2020 SUBJECTIVE: Norma Bolton is a 74-year-old female in swing bed. Had repair on 07/24/2020, doing well. Hemoglobin stable at 9.0, had been 8.5 on discharge. She is on Lovenox for [address] Villarreal, Orthopedics, is provider of record. Pain is controlled by Arthritis Strength Tylenol and ibuprofen. Has had a rash in right upper back, thinks it is from the rubber casing of the pillows. Now just using blanket. OBJECTIVE: VITAL SIGNS: 36.2, 77, 105/63, 16, and 98%. GENERAL: In good spirits. NECK: Benign. Thyroid small. CHEST: Clear in all lung headley. HEART: No ectopy or murmur. ABDOMEN: Benign. Incision in the right hip is healing well. Bulky dressing in place. SKIN: Upper chest revealed just a little bit of maculopapular rash. ASSESSMENT: Right hip fracture, repair, benign rash. PLAN: Continue lotion and treatment. Pain control. /[id number] VANDANA/MARYBEL
[2020-08-03] MEDS: Ibuprofen 200 MG Tab PO SCH ×4 (04:50→21:09)
[2020-08-03] MEDS: Acetaminophen 325 MG Tab PO SCH ×4 (04:50→21:09)
[2020-08-03] MEDS: Cholecalciferol (Vitamin D3) 25 MCG Tab PO SCH (08:32)
[2020-08-03] MEDS: Multivitamin Tab PO SCH (08:32)
[2020-08-03] MEDS: Polyethylene Glycol 3350 Powder 17 GM Packet PO SCH (08:32)
[2020-08-03] MEDS: Calcium Carbonate 500 MG Tablet PO SCH ×2 (08:32→18:25)
[2020-08-03] MEDS: Bacitracin Oint 28.35 GM Tube TOP SCH ×3 (09:40→21:14)
[2020-08-03] MEDS ORDERED: Sodium Chloride 0.9% 10 ML Syringe FLUSH PRN (09:50)
--- NOTE | 2020-08-03 11:40 | PN ---
DATE SEEN: 08/03/2020 SUBJECTIVE: Norma Bolton is a young lady, 74-year-old, seen today for review. Had a fall resulting in a right hip fracture and resulting right total hip arthroplasty. Doing well. Pain is controlled. Ambulation skills are improving. LABORATORY STUDIES: Hemoglobin 07/31/2020, 9.0, stable, had been 8.5 on discharge from [place]. PHYSICAL EXAMINATION: GENERAL: Appears comfortable. NECK: Benign. Thyroid small. CHEST: Clear in all lung headley. HEART: No ectomy or murmur. ABDOMEN: Benign. Incision healing well. Dressing to be placed today. BACK: Rash improved. ASSESSMENT: Rehab. Right total hip arthroplasty. PLAN: Medications, care, and treatment appropriate. Plan to discharge accordingly. /[id number] VANDANA/MARYBEL
[2020-08-03] MEDS: Enoxaparin 40 MG/0.4 ML Syringe SUBCUT SCH (13:06)
[2020-08-04] MEDS: Ibuprofen 200 MG Tab PO SCH ×4 (04:28→21:02)
[2020-08-04] MEDS: Acetaminophen 325 MG Tab PO SCH ×4 (04:29→21:02)
[2020-08-04] MEDS: Polyethylene Glycol 3350 Powder 17 GM Packet PO SCH (08:38)
[2020-08-04] MEDS: Calcium Carbonate 500 MG Tablet PO SCH ×2 (08:38→18:08)
[2020-08-04] MEDS: Bacitracin Oint 28.35 GM Tube TOP SCH ×3 (08:39→21:02)
[2020-08-04] MEDS: Multivitamin Tab PO SCH (08:39)
[2020-08-04] MEDS: Cholecalciferol (Vitamin D3) 25 MCG Tab PO SCH (08:40)
--- NOTE | 2020-08-04 11:19 | PN ---
DATE SEEN: 08/04/2020 SUBJECTIVE: Norma Bolton is a 74-year-old female, anxious to be home. Likely this week. Had a right total hip arthroplasty. Hemoglobin has stabilized at 9.0, postoperatively it was 8.5. Rash in her back is improved. Mo to be removed, plan to be removed tomorrow here by our staff. OBJECTIVE: VITAL SIGNS: 36.4, 98 is the pulse, 106/70, 19, 96%. GENERAL: Appears comfortable, ambulating comfortably. NECK: Benign. Thyroid small. CHEST: Clear in all lung headley. HEART: No ectopy or murmur. ABDOMEN: Benign. SKIN: Incision healing well. ASSESSMENT: Right hip fracture, therapy. PLAN: Medications, care, and treatment. Mo out tomorrow, plan to discharge accordingly. /[id number] VANDANA/MARYBEL
[2020-08-04] MEDS: Enoxaparin 40 MG/0.4 ML Syringe SUBCUT SCH (12:48)
[2020-08-05] MEDS: Acetaminophen 325 MG Tab PO SCH ×2 (04:16→10:14)
[2020-08-05] MEDS: Ibuprofen 200 MG Tab PO SCH ×2 (04:16→10:14)
[2020-08-05] MEDS: Multivitamin Tab PO SCH (08:42)
[2020-08-05] MEDS: Cholecalciferol (Vitamin D3) 25 MCG Tab PO SCH (08:42)
[2020-08-05] MEDS: Calcium Carbonate 500 MG Tablet PO SCH (08:42)
[2020-08-05] MEDS: Bacitracin Oint 28.35 GM Tube TOP SCH (08:43)
[2020-08-05] MEDS: Polyethylene Glycol 3350 Powder 17 GM Packet PO SCH (08:43)
[2020-08-05] MEDS: Enoxaparin 40 MG/0.4 ML Syringe SUBCUT SCH (12:28)
--- NOTE | 2020-08-05 12:36 | DISCH ---
DISCHARGE DATE: 08/05/2020 DISCHARGE DIAGNOSIS: Postoperative care, right hip fracture. HISTORY: Norma Bolton is a 74-year-old female admitted from swing bed from [facility] to [facility]. Sustained a fall on 07/23/2020. Fell, falling down some steps at her home. She had surgical repair by Dr. Villarreal. Was transferred to [facility] on 07/28/2020 for rehab care. Her hospital course was uncomplicated. PT and OT have actively involved, ambulation skills, self-care, transfer, and management were more than satisfactory. At the time of discharge, the patient was comfortable going home with appropriate instructions. The wound was healing without difficulty. Mo had been removed, little serosanguineous drainage, nonpathologic from the wound. We will continue dressings at home. Pain is controlled with Tylenol. OBJECTIVE: VITAL SIGNS: 35.9, 72, 101/56, 18, and 97. Weight 75 kg. GENERAL: Appears comfortable. NECK: Benign. Thyroid small. CHEST: On auscultation, clear in all lung headley. HEART: On auscultation, no ectopy or murmur. ABDOMEN: Benign. Left wound incision with some benign serosanguineous drainage and dressing in place. PLAN: Discharge home, home care, PT/OT. Upcoming visit next week with Dr. Villarreal in Orthopedics. Complementary care and well being. Discharge planning and treatment 40 minutes. /[id number] 1225 VANDANA/MARYBEL
== END 2020-08-05 12:45 | disposition home health service (06) | DRG 561 ==
LOC: FB.MS 15:24
PROVIDERS: ADMIT Family Medicine; ATTEND Family Medicine
DX: Z47.1 Aftercare following joint replacement surgery (principal); Z96.641 Presence of right artificial hip joint; S72.009D Fracture of unspecified part of neck of unspecified femur, subsequent encounter for closed fracture with routine healing; K59.00 Constipation, unspecified; M19.90 Unspecified osteoarthritis, unspecified site; F41.9 Anxiety disorder, unspecified; L30.9 Dermatitis, unspecified; Z79.899 Other long term (current) drug therapy; Z98.49 Cataract extraction status, unspecified eye
CPT/HCPCS: 36415; 85014; 85018; 97110-GP; 97116-GP; 97161-GP; 97165-GO; 97530-GO; 97530-GP; 97535-GO; A9270-GY; J1650